=== PATIENT | female | born 1985 | race Caucasian/White ===

== ENCOUNTER 2019-01-08 21:37 | Inpatient (IN) | payer OTHER ==
[~2019-01-08] VITALS: Ht 162.6 cm; Wt 50.4 kg
--- NOTE | 2019-01-08 21:38 | NUR ---
ED Nurse Note: Pt arrived at 2109 BIBA from home with c/o OD on prescription pills in attempt to OD, pt has history of depression and test friend today with suicidal ideations and found un-responsive in home this evening, pt arrived in very critical condition, non-responsive and very lethargic, breathing shallow with o2 sat=94% with o2, pt also with increased heart rate of 130's, pt immediately gowned, has patent iv in right hand, labs drawn and MD immediately at bedside.
--- NOTE | 2019-01-08 21:47 | NUR ---
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 No reversal agents. Supportive care. Monitor for a minimum of 6-8 hours. Repeat EKG after treatment.
--- NOTE | 2019-01-08 21:50 | Emergency Room Report ---
History of Present Illness General Chief Complaint: Overdose Present Illness HPI 33-year-old female history of depression presents with overdose of Flexeril 10 mg unknown amount patient also overdosed on quetiapine 100 mg entire bottle is empty 3 months supply 90 pills, patient texted her friend saying she wanted to kill herself unknown ingestion time, patient unresponsive, patient brought in by EMS, history is limited, patient is critical. Patient presents for evaluation Allergies: Coded Allergies: UNABLE TO ASSESS (Unverified , 01/08/19) Patient History Limited by: medical condition - Patient obtunded Past Medical History: see triage record Last Menstrual Period: unk Reviewed Nursing Documentation: PMH: Agreed; PSxH: Agreed Review of Systems All Other Systems: limited - Patient is obtunded Physical Exam Vital Signs Date Time Temp Pulse Resp B/P (MAP) Pulse Ox O2 Delivery O2 Flow Rate FiO2 01/08/19 21:33 98.2 130 18 126/82 (97) 98 Nasal Cannula 4.0 Sp02 EP Interpretation: reviewed, abnormal - 93% General Appearance: moderate distress, lethargic Head: normocephalic, atraumatic Eyes: bilateral eye PERRL, bilateral eye EOMI ENT: uvula midline, dry mucus membranes Neck: supple, thyroid normal, supple/symm/no masses, other - No gag reflex Respiratory: lungs clear, no respiratory distress, no retraction, no accessory muscle use Cardiovascular #1: normal peripheral pulses, no edema, no gallop, no murmur, tachycardia Gastrointestinal: non tender, soft, no guarding, no rebound Musculoskeletal: normal inspection Neurologic: other - Response to pain however overall response is minimal Skin: no rash, warm/dry Procedures Critical Care Time Critical Care Time Given the critical condition in which the patient arrived, the patient was immediately assessed by myself and the nurse, and cardiac monitoring initiated due to the potential for rapid decompensation of the patient's clinical condition. During the course of the patient's stay, I spent a considerable amount of time at the bedside performing serial re-evaluations of the patient's hemodynamic and clinical status because of the recognized potential threat to life or limb in this condition. I then had a chance to review not only all of the available current laboratory and radiographic studies obtained today, but I also reviewed old records available to me at the time. Additionally, any ancillary information available including steward/stewardess second records were reviewed. Sequential vital signs were obtained. Critical Care time of 37 minutes was performed exclusive of billable procedures. Intubation Intubation : Consent: Emergent Time of Intubation: 22:11 Intubation Method: orotracheal Tube Size (cm): 7.5 Medications: Etomidate Breath Sounds after Intubation: equal Intubation Complications: no complications Post Intubation Xray: Yes Progress/Xray Impression: ETT well seated Attempts: One Patient Tolerated: Well Complications: None Medical Decision Making Diagnostic Impression: Primary Impression: Drug overdose Additional Impressions: Altered mental status, unspecified Respiratory failure Lactic acid acidosis Leukocytosis ER Course 33-year-old female presents with overdose of Seroquel, and Flexeril, patient with a QTC of 595 Patient in acute distress, obtunded, fluid resuscitation, antibiotics started, patient found to have a lactic acidosis, will order reflex. My nurse spoke with poison control, recommended monitoring, ICU admission, Derrick was individual at poison control time was at 9:45 PM Patient 10 PM, patient unresponsive, not protecting her airway, no gag, patient was emergently intubated Reevaluation 1153 she remains intubated Supportive care as per poison control, CT head is negative for acute pathology Patient admitted to Dr. Larsen [id number] Laboratory Tests Test 01/08/19 21:44 01/08/19 21:45 01/08/19 22:30 01/08/19 23:15 Arterial Blood pH 7.443 (7.350-7.450) Arterial Blood Partial Pressure CO2 32.6 mmHg (35.0-45.0) L Arterial Blood Partial Pressure O2 68.3 mmHg (75.0-100.0) L Arterial Blood HCO3 21.8 mmol/L (22.0-26.0) L Arterial Blood Oxygen Saturation 92.7 % (95-100) L Arterial Blood Base Excess -1.6 (-2-2) Chriss Test Positive Venous Blood pH Venous Blood Partial Pressure CO2 Venous Blood Partial Pressure O2 Venous Blood HCO3 Venous Blood Total Carbon Dioxide Venous Bld O2 Saturation (Measured) Venous Blood Oxygen Saturation Venous Blood Base Excess Methemoglobin 0.6 Sodium (Blood Gas) White Blood Count 26.1 K/UL (4.8-10.8) *H Red Blood Count 4.05 M/UL (4.20-5.40) L Hemoglobin 12.4 G/DL (12.0-16.0) Hematocrit 35.9 % (37.0-47.0) L Mean Corpuscular Volume 89 FL (80-99) Mean Corpuscular Hemoglobin 30.6 PG (27.0-31.0) Mean Corpuscular Hemoglobin Concent 34.5 G/DL (32.0-36.0) Red Cell Distribution Width 12.4 % (11.6-14.8) Platelet Count 275 K/UL (150-450) Mean Platelet Volume 6.3 FL (6.5-10.1) L Neutrophils (%) (Auto) % (45.0-75.0) Lymphocytes (%) (Auto) % (20.0-45.0) Monocytes (%) (Auto) % (1.0-10.0) Eosinophils (%) (Auto) % (0.0-3.0) Basophils (%) (Auto) % (0.0-2.0) Differential Total Cells Counted 100 Neutrophils % (Manual) 62 % (45-75) Lymphocytes % (Manual) 6 % (20-45) L Monocytes % (Manual) 5 % (1-10) Eosinophils % (Manual) 0 % (0-3) Basophils % (Manual) 0 % (0-2) Band Neutrophils 27 % (0-8) H Platelet Estimate Adequate Platelet Morphology Normal Red Blood Cell Morphology Normal Prothrombin Time 10.7 SEC (9.30-11.50) Prothrombin Time INR 1.0 (0.9-1.1) PTT 25 SEC (23-33) Sodium Level 143 MMOL/L (136-145) Potassium Level 3.3 MMOL/L (3.5-5.1) L Chloride Level 106 MMOL/L (98-107) Carbon Dioxide Level 23 MMOL/L (21-32) Anion Gap 14 mmol/L (5-15) Blood Urea Nitrogen 19 mg/dL (7-18) H Creatinine 1.5 MG/DL (0.55-1.30) H Estimate Glomerular Filtration Rate 40.0 mL/min (>60) Glucose Level 104 MG/DL (74-106) Lactic Acid Level 5.50 mmol/L (0.4-2.0) H Pending Calcium Level 8.2 MG/DL (8.5-10.1) L Phosphorus Level 3.9 MG/DL (2.5-4.9) Magnesium Level 1.2 MG/DL (1.8-2.4) L Total Bilirubin 0.6 MG/DL (0.2-1.0) Aspartate Amino Transferase (AST) 21 U/L (15-37) Alanine Aminotransferase (ALT) 16 U/L (12-78) Alkaline Phosphatase 61 U/L (46-116) Total Creatine Kinase 251 U/L (26-308) Creatine Kinase MB 2.4 NG/ML (0.0-3.6) Creatine Kinase MB Relative Index 0.9 Troponin I 0.007 ng/mL (0.000-0.056) Pro-B-Type Natriuretic Peptide 74 pg/mL (0-125) Total Protein 6.2 G/DL (6.4-8.2) L Albumin 2.9 G/DL (3.4-5.0) L Globulin 3.3 g/dL Albumin/Globulin Ratio 0.9 (1.0-2.7) L Triglycerides Level 37 MG/DL (30-150) Amylase Level 1149 U/L (25-115) *H Lipase 112 U/L (73-393) Human Chorionic Gonadotropin, Quant 1 mIU/mL (1-6) Salicylates Level 0.2 ug/mL (2.8-20) L Acetaminophen Level < 2 MCG/ML (10-30) L Serum Alcohol < 3 mg/dL Urine Color Pale yellow Urine Appearance Cloudy Urine pH 6 (4.5-8.0) Urine Specific [place] 1.015 (1.005-1.035) Urine Protein 2+ (NEGATIVE) H Urine Glucose (UA) Negative (NEGATIVE) Urine Ketones Negative (NEGATIVE) Urine Blood 1+ (NEGATIVE) H Urine Nitrite Negative (NEGATIVE) Urine Bilirubin Negative (NEGATIVE) Urine Urobilinogen Normal MG/DL (0.0-1.0) Urine Leukocyte Esterase 3+ (NEGATIVE) H Urine RBC 2-4 /HPF (0 - 2) H Urine WBC Tntc /HPF (0 - 2) H Urine Squamous Epithelial Cells None /LPF (NONE/OCC) Urine Bacteria Many /HPF (NONE) H Urine HCG, Qualitative Negative (NEGATIVE) Urine Opiates Screen Negative (NEGATIVE) Urine Barbiturates Screen Negative (NEGATIVE) Phencyclidine (PCP) Screen Negative (NEGATIVE) Urine Amphetamines Screen Negative (NEGATIVE) Urine Benzodiazepines Screen Positive (NEGATIVE) H Urine Cocaine Screen Negative (NEGATIVE) Urine Marijuana (THC) Screen Negative (NEGATIVE) EKG Diagnostic Results EKG Time: 21:46 EP Interpretation: Sinus tachycardia, rate 127, QTc 595, no acute ST elevations , normal axis Rate: tachycardiac Rhythm: NSR ST Segments: no acute changes Other Impression rpt EKG 2307: Rate 124, QTc 612, no acute ST elevations, normal axis, NSR Rhythm Strip Diag. Results Rhythm Strip Time: 21:51 EP Interpretation: yes Rate: 127 Rhythm: no PVC's, no ectopy, other - Tachycardia Chest X-Ray Diagnostic Results Chest X-Ray Diagnostic Results : Chest X-Ray Ordered: Yes # of Views/Limited/Complete: 1 View Indication: Other - AMS EP Interpretation: Yes Interpretation: no consolidation, no effusion, no pneumothorax, other - Tube 4.5 cm from gamal Impression: Other - ET tube 4.5 cm from gamal Other X-Ray Diagnostic Results Other X-Ray Diagnostic Results : Indication: Other CT/MRI/US Diagnostic Results CT/MRI/US Diagnostic Results : Impression Preliminary Findings Only See Final Report For Complete Findings CT HEAD Without Contrast: INDICATION: ams TECHNIQUE: Multiple, contiguous 2.5 mm axial cuts of the brain are obtained from the posterior fossa to the cranial vault. Coronal reformatted images provided. No IV contrast is administered. COMPARISON: none FINDINGS: No intracranial hemorrhage, abnormal intra- or extra-axial collections or parenchymal lesions are seen. The shape and configuration of the cortical sulci, basal cisterns and ventricles are within normal limits. The brady -white differentiation is preserved. No evidence of mass effect, midline shift, or edema. The osseous structures are unremarkable. The visualized portions of the paranasal sinuses are clear. Patient is intubated. IMPRESSION: Normal non-contrast CT scan of the head. Radiologist: Breana Buenrostro MD Last Vital Signs Date Time Temp Pulse Resp B/P (MAP) Pulse Ox O2 Delivery O2 Flow Rate FiO2 01/08/19 21:33 98.2 130 18 126/82 (97) 98 Nasal Cannula 4.0 Disposition: ADMITTED INPATIENT Condition: Serious Referrals: NOT CHOSEN IPA/,REFERRING (PCP) Jason Fox MD Jan 08, 2019 21:50
[2019-01-08 22:00] VITALS: BP 126/82
[2019-01-08] MEDS ORDERED: cefTRIAXone 1 GM in NS 55 ML IVPB ONE (22:00)
[2019-01-08] MEDS ORDERED: Clindamycin 600mg 50 ML IVPB ONE (22:00)
[2019-01-08] MEDS ORDERED: Sodium Bicarbonate 50ml Carp IV ONE (22:00)
[2019-01-08] MEDS ORDERED: Zemuron 50mg/5ml Inj IV ONE (22:00)
[2019-01-08] MEDS ORDERED: Etomidate 40mg/20ml Inj IV ONE (22:00)
--- NOTE | 2019-01-08 22:10 | NUR ---
ED Nurse Note: Pt intubated by md and placed on mechanical ventilation, v/s stable, all labs drawn and sent, will continue to closely monitor and prepare for icu admission.
[2019-01-08 22:29] LABS: HEMATOCRIT 35.9 % (37.0-47.0); HEMOGLOBIN 12.4 G/DL (12.0-16.0); MEAN CORPUSCULAR VOLUME 89 FL (80-99); PLATELET COUNT 275 K/UL (150-450); RED BLOOD COUNT 4.05 M/UL (4.20-5.40); RED CELL DISTRIBUTION WIDTH 12.4 % (11.6-14.8)
[2019-01-08 22:30] VITALS: BP 132/88
[2019-01-08 22:31] LABS: WHITE BLOOD COUNT 26.1 K/UL (4.8-10.8)
[2019-01-08 22:43] LABS: ANION GAP 14 mmol/L (5-15); BLOOD UREA NITROGEN 19 mg/dL (7-18); CALCIUM 8.2 MG/DL (8.5-10.1); CARBON DIOXIDE 23 MMOL/L (21-32); CHLORIDE 106 MMOL/L (98-107); CREATININE 1.5 MG/DL (0.55-1.30); POTASSIUM 3.3 MMOL/L (3.5-5.1); SODIUM 143 MMOL/L (136-145)
[2019-01-08 22:55] LABS: ALANINE AMINOTRANSFERASE 16 U/L (12-78); ALBUMIN 2.9 G/DL (3.4-5.0); ALBUMIN/GLOBULIN RATIO 0.9 (1.0-2.7); ALKALINE PHOSPHATASE 61 U/L (46-116); ASPARTATE AMINO TRANSFERASE 21 U/L (15-37); BILIRUBIN,TOTAL 0.6 MG/DL (0.2-1.0); CKMB 2.4 NG/ML (0.0-3.6); CREATINE KINASE 251 U/L (26-308); PHOSPHORUS 3.9 MG/DL (2.5-4.9); TRIGLYCERIDES 37 MG/DL (30-150)
[2019-01-08 22:57] LABS: AMYLASE 1149 U/L (25-115)
[2019-01-08 23:00] VITALS: BP 144/98
--- NOTE | 2019-01-08 23:00 | NUR ---
ED Nurse Note: No changes in condition or worsening, pt reamins intubated, ogt inserted with no complications, iv fluuids and meds given as ordered, pt brother Christoph Cedillo is at bedside, contact info., pt being prepared to go to ct-scan for imaging, will continue to closely monitor, md has propofol ordered, pt ermains non-responsive, no need for sedation at this time, md is aware, med not started.
--- NOTE | 2019-01-08 23:00 | NUR ---
ED Nurse Note: PT BEING TAKEN TO FLOOR UNIT FOR ADMISSION, REPORT CALLED TO ICU NURSE GIOVANI, PT REMAINS IN SAME CONDITION AND NON-RESPONSIVE, PT IS INTUBATED ON VENTILATOR SUPPORT, IV LINES X 2 INTACT AND PATENT, RESPIRATORY THERAPIST, RN AND ER-TECH ALL TOOK PT TO FLOOR UNIT VIA GURNEY AND ACLS PROTOCOLS, NAD NOTED DURING TRANSFER TO UNIT.
--- NOTE | 2019-01-08 23:18 | Diagnostic Imaging Report ---
Indication: NG tube Comparison: None Single view of the abdomen obtained Findings: NG tube is well situated in the stomach lumen. Bowel gas pattern is nonspecific. IMPRESSION: NG tube satisfactory in position
--- NOTE | 2019-01-08 23:19 | Diagnostic Imaging Report ---
Indication: Intubation Comparison: None A single view chest radiograph was obtained. Findings: Endotracheal tube is in good position. There is hazy opacification of the right hemithorax. Heart size is normal. Bones are unremarkable. IMPRESSION: Endotracheal tube in good position. Generalized increased opacification of the right hemithorax may be positional in nature
[2019-01-08 23:30] VITALS: BP 142/90
[2019-01-08 23:32] LABS: BILIRUBIN, URINE NEGATIVE (NEGATIVE); COLOR,URINE PALE YELLOW; GLUCOSE, URINE (UA) NEGATIVE (NEGATIVE); KETONES,URINE NEGATIVE (NEGATIVE); LEUKOCYTE ESTERASE ,URINE 3+ (NEGATIVE); NITRITE,URINE NEGATIVE (NEGATIVE); PH,URINE 6 (4.5-8.0); PROTEIN,URINE 2+ (NEGATIVE); UROBILINOGEN,URINE NORMAL MG/DL (0.0-1.0)
[2019-01-08 23:48] LABS: APPEARANCE,URINE CLOUDY
[2019-01-09] VITALS (23 sets, daily range): BP systolic 95–127; BP diastolic 56–78
--- NOTE | 2019-01-09 00:02 | Diagnostic Imaging Report ---
Indication: Altered mental status Technique: Contiguous 5 mm thick transaxial imaging of the head obtained in a Siemens Sensation [address] scanner. Soft tissue and bone windows generated. Automatic Exposure Control was utilized. Total Dose length Product (DLP): 1344.[address] Dose Index Volume (CTDIvol): 70.38 mGy Comparison: none Findings: The size and configuration of the cortical sulci, basal cisterns, and ventricles are within normal limits for age. There is no mass effect, midline shift, or edema identified. There is no evidence of acute hemorrhage or abnormal intra-axial or extra-axial fluid collections. The bones and soft tissues are unremarkable. Impression: No mass effect, edema or acute bleed. Stat rad communicated the preliminary results to the Emergency Department. There are no significant discrepancies. The CT scanner at [facility] is accredited by the [employer] [employer] and the scans are performed using dose optimization techniques as appropriate to a performed exam including Automatic Exposure control.
--- NOTE | 2019-01-09 00:45 | NUR ---
NURSE NOTES: Received Pt from ER with Dx drug overdose , pt is obtunded orally intubated on AC mode, pupils 5mm sluggish with + for gag reflex.Junctional rhythm on the monitor, Bp stable afebrile. IVF infusing well per left AC. Site atraumatic, NPO at this time, pt with OGT clamped. Alvarez to gravity with moderate amt of carlin yellow urine. Monitor I and O. Monitor lytes. Pt also has non blancheable redness sacral area, picture taken was done.TX was initiated. Monitor Neuro status. Will continue to monitor.
[2019-01-09] MEDS ORDERED: QUETIAPINE FUM100 MG ORAL (00:48)
[2019-01-09] MEDS ORDERED: CYCLOBENZAPRINE10 MG ORAL (00:48)
[2019-01-09] MEDS ORDERED: SERTRALINE HCL50 MG ORAL (00:48)
--- NOTE | 2019-01-09 01:00 | NUR ---
NURSE NOTES:pt noted slightly agitated- Soft wrist restrain maintained for safety.
--- NOTE | 2019-01-09 01:19 | NUR ---
NURSE NOTES: Called Dr. Larsen and left message asking for admission orders. Awaiting for call back.
--- NOTE | 2019-01-09 01:27 | NUR ---
NURSE NOTES: Dr. Larsen called back with admission orders.
[2019-01-09] MEDS ORDERED: LORazepam Inj 2mg/ml 1ml IV PRN ×2 (01:30→11:30)
[2019-01-09] MEDS ORDERED: Vancomycin 1.25gm Premix IVPB ONE ×2 (02:30→04:00)
[2019-01-09] MEDS ORDERED: Vancomycin 1.25gm vial IVPB ONE (03:27)
[2019-01-09] MEDS ORDERED: Zosyn 3.375gm inj ONE (03:29)
--- NOTE | 2019-01-09 04:00 | NUR ---
NURSE NOTES: pt obtunted o2 sat 100 o/o no acute resp distress reposition and suction
[2019-01-09 04:39] LABS: MEAN CORPUSCULAR VOLUME 93 FL (80-99); PLATELET COUNT 231 K/UL (150-450); RED BLOOD COUNT 3.54 M/UL (4.20-5.40); RED CELL DISTRIBUTION WIDTH 13.2 % (11.6-14.8); WHITE BLOOD COUNT 19.8 K/UL (4.8-10.8)
[2019-01-09 04:54] LABS: ALANINE AMINOTRANSFERASE 11 U/L (12-78); ALBUMIN 2.3 G/DL (3.4-5.0); ALBUMIN/GLOBULIN RATIO 0.7 (1.0-2.7); ALKALINE PHOSPHATASE 49 U/L (46-116); ANION GAP 9 mmol/L (5-15); ASPARTATE AMINO TRANSFERASE 22 U/L (15-37); BILIRUBIN,TOTAL 0.6 MG/DL (0.2-1.0); BLOOD UREA NITROGEN 16 mg/dL (7-18); CALCIUM 7.2 MG/DL (8.5-10.1); CARBON DIOXIDE 24 MMOL/L (21-32); CHLORIDE 111 MMOL/L (98-107); CREATININE 1.1 MG/DL (0.55-1.30); POTASSIUM 3.3 MMOL/L (3.5-5.1); SODIUM 144 MMOL/L (136-145)
[2019-01-09] MEDS: Piperacillin/Tazobactam 3.375 GM in NS 110 ML IVPB SCH ×4 (05:51→23:49)
--- NOTE | 2019-01-09 06:00 | NUR ---
NURSE NOTES: pt reposition and suction condition unchange
--- NOTE | 2019-01-09 06:40 | NUR ---
RESPIRATORY NOTE: Received pt on AC 20-420ml- 50%FiO2- peep 5. Pt was orally intubated with ETT 7.5 @ 22cm lips line, secure by anchor fast. Percy clear breath sounds heard upon auscultation, no secretions when suctioned. Pt is sleeping, unable to follow commands but responds to pain and suctioning. Alarms are set and audible, vent is plugged into the red outlet, ambu bag is at bedside. Vent circuits and scn tubing are patent, secured and out of the way. Will continue to monitor.
--- NOTE | 2019-01-09 07:23 | NUR ---
RADIOLOGY DEPT., CHEST X-RAY PERFORMED 22:10HRS ON 01/09 BY JOANNA BROWN
--- NOTE | 2019-01-09 07:28 | History & Physical ---
History and Physical History & Physicial History and Physical HPI Patient is a 33-year-old female with history of depression whom presents after taking an overdose of Flexeril 10 mg - unknown amount, patient also overdosed on quetiapine 100 mg entire bottle is empty 3 months supply 90 pills, patient texted her friend saying she wanted to kill herself unknown ingestion time, patient unresponsive on arrival in the ED, intubated for airway protection. Allergies: UNK Past Medical History: Psychiatric disorder All Other Systems: NA Physical Exam Vital Signs noted General Appearance: seadted on the ventilator Head: normocephalic, atraumatic Eyes: bilateral eye PERRL, bilateral eye EOMI ENT: NCAT, moist mm Neck: supple, thyroid normal, supple/symm/no masses, ETT, NGT Respiratory: lungs clear to auscultation bilaterally Cardiovascular: normal heart sounds, normal peripheral pulses, no edema Gastrointestinal: non tender, soft, no guarding, no rebound Musculoskeletal: normal inspection Neurologic: sedated, no focal signs, no seizures Skin: no rash, no edema Procedures Critical Care Time Critical Care Time Given the critical condition in which the patient arrived, the patient was immediately assessed by myself and the nurse, and cardiac monitoring initiated due to the potential for rapid decompensation of the patient's clinical condition. During the course of the patient's stay, I spent a considerable amount of time at the bedside performing serial re-evaluations of the patient's hemodynamic and clinical status because of the recognized potential threat to life or limb in this condition. I then had a chance to review not only all of the available current laboratory and radiographic studies obtained today, b Impression: Drug overdose of Flexeril, Seroquel Respiratory failure Lactic acid acidosis Leukocytosis Psychiatric Disorder Plan AC Mechanical Ventilation NGT Supportive measures IVF IV AB PPX Monitor labs Sedation PRN Laboratory Tests Test 01/08/19 21:44 01/08/19 21:45 01/08/19 22:30 01/08/19 23:15 Arterial Blood pH 7.443 (7.350-7.450) Arterial Blood Partial Pressure CO2 32.6 mmHg (35.0-45.0) L Arterial Blood Partial Pressure O2 68.3 mmHg (75.0-100.0) L Arterial Blood HCO3 21.8 mmol/L (22.0-26.0) L Arterial Blood Oxygen Saturation 92.7 % (95-100) L Arterial Blood Base Excess -1.6 (-2-2) Chriss Test Positive Venous Blood pH Venous Blood Partial Pressure CO2 Venous Blood Partial Pressure O2 Venous Blood HCO3 Venous Blood Total Carbon Dioxide Venous Bld O2 Saturation (Measured) Venous Blood Oxygen Saturation Venous Blood Base Excess Methemoglobin 0.6 Sodium (Blood Gas) White Blood Count 26.1 K/UL (4.8-10.8) *H Red Blood Count 4.05 M/UL (4.20-5.40) L Hemoglobin 12.4 G/DL (12.0-16.0) Hematocrit 35.9 % (37.0-47.0) L Mean Corpuscular Volume 89 FL (80-99) Mean Corpuscular Hemoglobin 30.6 PG (27.0-31.0) Mean Corpuscular Hemoglobin Concent 34.5 G/DL (32.0-36.0) Red Cell Distribution Width 12.4 % (11.6-14.8) Platelet Count 275 K/UL (150-450) Mean Platelet Volume 6.3 FL (6.5-10.1) L Neutrophils (%) (Auto) % (45.0-75.0) Lymphocytes (%) (Auto) % (20.0-45.0) Monocytes (%) (Auto) % (1.0-10.0) Eosinophils (%) (Auto) % (0.0-3.0) Basophils (%) (Auto) % (0.0-2.0) Differential Total Cells Counted 100 Neutrophils % (Manual) 62 % (45-75) Lymphocytes % (Manual) 6 % (20-45) L Monocytes % (Manual) 5 % (1-10) Eosinophils % (Manual) 0 % (0-3) Basophils % (Manual) 0 % (0-2) Band Neutrophils 27 % (0-8) H Platelet Estimate Adequate Platelet Morphology Normal Red Blood Cell Morphology Normal Prothrombin Time 10.7 SEC (9.30-11.50) Prothrombin Time INR 1.0 (0.9-1.1) PTT 25 SEC (23-33) Sodium Level 143 MMOL/L (136-145) Potassium Level 3.3 MMOL/L (3.5-5.1) L Chloride Level 106 MMOL/L (98-107) Carbon Dioxide Level 23 MMOL/L (21-32) Anion Gap 14 mmol/L (5-15) Blood Urea Nitrogen 19 mg/dL (7-18) H Creatinine 1.5 MG/DL (0.55-1.30) H Estimate Glomerular Filtration Rate 40.0 mL/min (>60) Glucose Level 104 MG/DL (74-106) Lactic Acid Level 5.50 mmol/L (0.4-2.0) H Pending Calcium Level 8.2 MG/DL (8.5-10.1) L Phosphorus Level 3.9 MG/DL (2.5-4.9) Magnesium Level 1.2 MG/DL (1.8-2.4) L Total Bilirubin 0.6 MG/DL (0.2-1.0) Aspartate Amino Transferase (AST) 21 U/L (15-37) Alanine Aminotransferase (ALT) 16 U/L (12-78) Alkaline Phosphatase 61 U/L (46-116) Total Creatine Kinase 251 U/L (26-308) Creatine Kinase MB 2.4 NG/ML (0.0-3.6) Creatine Kinase MB Relative Index 0.9 Troponin I 0.007 ng/mL (0.000-0.056) Pro-B-Type Natriuretic Peptide 74 pg/mL (0-125) Total Protein 6.2 G/DL (6.4-8.2) L Albumin 2.9 G/DL (3.4-5.0) L Globulin 3.3 g/dL Albumin/Globulin Ratio 0.9 (1.0-2.7) L Triglycerides Level 37 MG/DL (30-150) Amylase Level 1149 U/L (25-115) *H Lipase 112 U/L (73-393) Human Chorionic Gonadotropin, Quant 1 mIU/mL (1-6) Salicylates Level 0.2 ug/mL (2.8-20) L Acetaminophen Level < 2 MCG/ML (10-30) L Serum Alcohol < 3 mg/dL Urine Color Pale yellow Urine Appearance Cloudy Urine pH 6 (4.5-8.0) Urine Specific [place] 1.015 (1.005-1.035) Urine Protein 2+ (NEGATIVE) H Urine Glucose (UA) Negative (NEGATIVE) Urine Ketones Negative (NEGATIVE) Urine Blood 1+ (NEGATIVE) H Urine Nitrite Negative (NEGATIVE) Urine Bilirubin Negative (NEGATIVE) Urine Urobilinogen Normal MG/DL (0.0-1.0) Urine Leukocyte Esterase 3+ (NEGATIVE) H Urine RBC 2-4 /HPF (0 - 2) H Urine WBC Tntc /HPF (0 - 2) H Urine Squamous Epithelial Cells None /LPF (NONE/OCC) Urine Bacteria Many /HPF (NONE) H Urine HCG, Qualitative Negative (NEGATIVE) Urine Opiates Screen Negative (NEGATIVE) Urine Barbiturates Screen Negative (NEGATIVE) Phencyclidine (PCP) Screen Negative (NEGATIVE) Urine Amphetamines Screen Negative (NEGATIVE) Urine Benzodiazepines Screen Positive (NEGATIVE) H Urine Cocaine Screen Negative (NEGATIVE) Urine Marijuana (THC) Screen Negative (NEGATIVE) EKG: Sinus tachycardia, rate 127, QTc 595, no acute ST elevations, normal axis Rate: tachycardiac Rhythm: NSR ST Segments: no acute changes EKG 2307: Rate 124, QTc 612, no acute ST elevations, normal axis, NSR Chest X-Ray: no consolidation, no effusion, no pneumothorax, other - Tube 4.[address] HEAD: FINDINGS: No intracranial hemorrhage, abnormal intra- or extra-axial collections or parenchymal lesions are seen. The shape and configuration of the cortical sulci, basal cisterns and ventricles are within normal limits. The brady -white differentiation is preserved. No evidence of mass effect, midline shift, or edema. The osseous structures are unremarkable. The visualized portions of the paranasal sinuses are clear. Patient is intubated. IMPRESSION: Normal non-contrast CT scan of the head. Jean Pierre Allison MD Jan 09, 2019 07:28
--- NOTE | 2019-01-09 07:34 | NUR ---
HAND-OFF: Report given to liliana francisco using sbalisha rn
--- NOTE | 2019-01-09 07:35 | NUR ---
NURSE NOTES: Report received from TONY Dockery. Pt is sleeping in bed. Respond to deep pain and suctioning. Bilateral eyes sluggish +4. Sinus tachy in 120's on pvc monitor. Pt is on bilateral restraints since pt can be impulsive and pull out ETT. ETT 7.5/23cm at lip line. AC 20, TV 420, FiO2 50%, P 5. O2 sat 99%. No respiratory distress noted. OGT in place. Kept NPO as per order. Alvarez in place draining to gravity. Right hand G18 and left AC G20 patent and asymptotic. NS is running at 100cc/hr. Bed in lowest position. Side rails up x3. Will resume plan of care.
--- NOTE | 2019-01-09 07:52 | NUR ---
NURSE NOTES: Home medication given to brother.
--- NOTE | 2019-01-09 08:16 | NUR ---
NURSE NOTES: Spoke with [facility]. Received recommendation to do EKG. Received to do EKG from Dr Larsen. EKG done and shows Sinus tachy. Also notified Dr Larsen regarding ABG result and abnormal labs. Awaiting call back for new orders.
--- NOTE | 2019-01-09 08:33 | NUR ---
CASE MANAGEMENT:REVIEW 33 YR OLD FEMALE BIBA FROM HOME CC: OVERDOSE. FOUND UNRESPONSIVE W/EMPTY PILL BOTTLES (MUSCLE RELAXER, ANTIPSYCHOTIC AND ANTI-DEPRESSANT) SI: DRUG OVERDOSE. RESPIRATORY FAILURE 98.2 130 18 126/82 98% ON 4L/NC WBC+26.1 AMYLASE+1149 IS: INTUBATED 1L NS BOLUS X2 IV NAHCO3 IV ROCEPHIN IV CLINDAMYCIN IV MIDAZOLAM IV ETOMIDATE IV ROCURONIUM IV PROPOFOL CXR CT HEAD BLOOD CX : TO ICU INTERQUAL CRITERIA MET
[2019-01-09] MEDS: Heparin 5000 units/ml inj SUBQ SCH ×2 (09:25→20:58)
--- NOTE | 2019-01-09 09:49 | NUR ---
NURSE NOTES: Pt's mother took one of the bracelets to home. Pt has now two bracelets on left wrist. Turned and repositioned pt. Mother and brother in the waiting lounge.
--- NOTE | 2019-01-09 11:01 | NUR ---
NURSE NOTES: Dr Allison here to see the patient. Family and social worker palliative care, Kat at bedside. Updated Dr Allison regarding pt's current condition. Orders received, noted, and carried out.
--- NOTE | 2019-01-09 11:12 | NUR ---
Social Work This SW met with patient who is currently in the ICU, intubated and sedated. Patients mother, Mirian, visiting from [place] ([phone]) and brother, Christoph, lives in [place] ([phone]) at bedside to provide support to patient. 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 Patient has a history of chronic depression, taking antidepressants (and possibly anti-psychotics). Patient also has a history of substance abuse (alcohol and marijuana) and was recently in a dual-diagnosis program at [facility] for six weeks, outpatient treatment. Family was unable to provide the Psychiatrist or mental health clinic she attends. Pending progress; SW to follow for support and resources, as needed. Emotional support provided to family at bedside.
[2019-01-09] MEDS ORDERED: Activated Charcoal 50gm/240ml Btl ORAL SCH (12:00)
--- NOTE | 2019-01-09 12:55 | NUR ---
NURSE NOTES: Activated Charcoal given via OGT as ordered. Mother at bedside. Pt would wake up when coughing or suctioning for a short time, but would go back to sleep right away. Will continue to monitor. Turned and repositioned pt.
--- NOTE | 2019-01-09 14:13 | NUR ---
NURSE NOTES: Wound care nurse assessed the patient and changed dressing. Order entered as per wound protocol. Special mattress ordered. Dr Sotomayor will be a wound consult as per Dr Larsen. Initial wound assessment done. Addendum: 01/09/19 at 1639 by ZULEIMA DONOHUE RN RN NURSE NOTES: Wound care nurse assessed the patient and changed dressing. Order entered as per wound care nurse's recommendation. Special mattress ordered. Dr Sotomayor will be a wound consult as per Dr Larsen. Initial wound assessment done.
--- NOTE | 2019-01-09 14:51 | NUR ---
NURSE NOTES:WOUND CARE NOTES:Pt presented on admission with multiple pressure injuries.Non-blanching erythema without induration/fluctuance medial R elbow. DTPI L elbow.Base of wound maroon and indurated.(L)0.9cm x (W)0.8cm. An area of non-blanchable erythema without induration/fluctuance medial L elbow. DTPI sacrococcygeal area. base of wound indurated -purple with surrounding red tinged borders. (L)1cm x (W)1cm. DTPI L buttocks. base of wound maroon,indurated with irregular shaped borders that are red . Periwound is pink and blanchable. (L)4.2cm x (W)3.5cm. Non-blanchable erythema that is indurated at base of wound L buttocks (L)4.5cm x (W)5cm.Periwound pink and blanchable. Non-blanchable erythema without induration or fluctuance L heel. Non-blanchable erythema without induration or fluctuance L lateral Malleolus. Non-blanchable erythema without induration /fluctuance R heel. Tx.Plan: Apply Moisture Barrier paste to sacrococcygeal area, R and L buttocks. Apply Cavilon periwound. Cover with Optifoam drsgs. Change every 3 days and prn. Apply Cavilon Skin Barrier to R and L elbows. Cover each site with Optifoam drsg. Change every 7 days and prn. Apply Cavilon Skin Barrier to R and L heels. Cover each heel with Optifoam drsg. Change every 7 days and prn. APM/MEL Mattress overlay. Reposition at lease every 2 hours or as tolerated. Off-load heels with pillow.
[2019-01-09] MEDS ORDERED: NS 275ml ONE (15:19)
[2019-01-09] MEDS ORDERED: Tubing IV Secondary IV ONE (15:19)
[2019-01-09] MEDS ORDERED: D5W 275ml ONE (15:19)
--- NOTE | 2019-01-09 15:48 | NUR ---
RD ASSESSMENT & RECOMMENDATIONS SEE CARE ACTIVITY FOR COMPLETE ASSESSMENT DAILY ESTIMATED NEEDS: Needs based on Critical care, wounds/ 50kg 22-28 kcals/kg [id number] total kcals 1.25-2 g protein/kg 62-100 g total protein 25-30 mL/kg 8425-1537 total fluid mLs NUTRITION DIAGNOSIS: * Increased kcal/prot needs R/T wound healing as evidenced by pt admitted with multiple non-blanchable redness and DTPI wounds, refer to WC eval. * Swallowing difficulty R/T respiratory status as evidenced by s/p OD, orally intubated in ICU, w/ OGT in place, NPO. CURRENT TF:NPO ENTERAL NUTRITION RECOMMENDATIONS: Vital AF 1.2 @ 48ml/hr x 24 hrs to provide 1152ml, 1382kcal, 86g prot, 934ml free water * As medically appropriate, initiate Vital AF 1.2 @ 18ml/hr x 6 hrs * Advance 10ml q 4-6 hrs as tolerated to goal rate. * HOB over 30 degrees/ water flush per MD ADDITIONAL RECOMMENDATIONS: * Monitor lytes, replete as needed (low mag and K) * Calibrated bedscale wt for accurate CBW * Wound healing: add MVI 1 tab QD, Vit C 500mg QD : add Jose 1pkt BID
--- NOTE | 2019-01-09 16:26 | NUR ---
*-* INSURANCE *-* ALL CLINICALS AND REVIEWS HAVE BEEN FAXED TO: [facility] AUTH#[id number] FAX ALL CLINICALS TO: [phone]
--- NOTE | 2019-01-09 16:29 | NUR ---
NURSE NOTES: Afebrile. Turned and repositioned pt. Heart rate 122. BP 107/65. O2 sat 98-99% on FiO2 30%. No acute distress noted. Pt wakes up to pain or coughs at times and tries to reach ETT. Bilateral soft restraints continued.
--- NOTE | 2019-01-09 17:21 | Consultation ---
History of Present Illness General Date patient seen: Jan 09, 2019 Chief Complaint: Overdose Present Illness HPI This is a very unfortunate 33-year-old female who presented to [facility] emergency department brought in by ambulance after being found down for unknown time. Per report patient had suicidal ideations and wanted to commit suicide and overdosed on her medications. She was found down an unknown how long. She was intubated and taken to the intensive care unit for remainder of care and management. In intensive care unit she was identified to have multiple deep tissue injuries likely from being down for significant period of time. Surgery called to evaluate and assist with care. Patient seen, patient evaluate, chart reviewed. Patient unable to provide history given current medical condition. Allergies: Coded Allergies: UNABLE TO ASSESS (Unverified , 01/08/19) Medication History Scheduled Cyclobenzaprine Hcl* (Flexeril*), 10 MG ORAL THREE TIMES A DAY, (Reported) Quetiapine Fumarate* (Seroquel*), 100 MG ORAL DAILY, (Reported) Sertraline Hcl* (Zoloft*), 50 MG ORAL DAILY, (Reported) Patient History Limited by: medical condition History Provided By: Medical Record, PMD Healthcare decision maker Resuscitation status Full Code Advanced Directive on File No Past Medical/Surgical History Past Medical/Surgical History: (1) Deep tissue injury (2) Leukocytosis (3) Respiratory failure (4) Drug overdose (5) Lactic acid acidosis (6) Altered mental status, unspecified Review of Systems ROS Narrative Unable to provide given history and medical condition Physical Exam General Appearance: no apparent distress Lines, tubes and drains: peripheral HEENT: mucous membranes moist Neck: normal alignment Respiratory/Chest: lungs clear, on vent Cardiovascular/Chest: normal rate Abdomen: soft, no organomegaly, no mass Extremities: no edema, no cyanosis Skin Exam: warm/dry Neurologic: unresponsiveness Last 24 Hour Vital Signs Date Time Temp Pulse Resp B/P (MAP) Pulse Ox O2 Delivery O2 Flow Rate FiO2 01/09/19 17:00 121 26 106/65 (79) 99 01/09/19 16:34 121 23 30 01/09/19 16:26 122 01/09/19 16:00 30 01/09/19 16:00 98.8 122 25 107/65 (79) 98 01/09/19 16:00 Mechanical Ventilator 01/09/19 15:00 122 26 30 01/09/19 15:00 122 26 112/66 (81) 98 01/09/19 14:00 119 26 105/69 (81) 99 01/09/19 13:00 119 24 103/56 (72) 99 01/09/19 12:38 116 25 30 01/09/19 12:00 98.5 118 25 106/67 (80) 97 01/09/19 12:00 30 01/09/19 12:00 Mechanical Ventilator 01/09/19 11:56 119 01/09/19 11:00 121 26 107/67 (80) 97 01/09/19 10:57 120 24 30 01/09/19 10:00 123 24 111/70 (84) 100 01/09/19 09:41 123 01/09/19 09:40 98.6 01/09/19 09:00 125 25 113/61 (78) 99 01/09/19 08:30 126 25 40 01/09/19 08:00 50 01/09/19 08:00 Mechanical Ventilator 01/09/19 08:00 99.7 127 25 113/71 (85) 99 01/09/19 07:00 127 26 117/72 (87) 99 01/09/19 06:40 126 25 50 01/09/19 06:00 124 26 121/78 (92) 100 01/09/19 05:00 98.6 124 26 122/78 (93) 100 01/09/19 04:50 124 28 50 01/09/19 04:00 Mechanical Ventilator 01/09/19 04:00 127 01/09/19 04:00 127 25 127/76 (93) 100 01/09/19 04:00 55 01/09/19 03:06 133 30 50 01/09/19 03:00 133 27 119/73 (88) 100 01/09/19 02:00 133 19 123/76 (92) 100 01/09/19 01:15 60 01/09/19 01:05 129 01/09/19 01:00 98.7 129 19 125/75 (92) 100 01/09/19 01:00 Mechanical Ventilator 01/09/19 01:00 Mechanical Ventilator 01/09/19 01:00 Mechanical Ventilator 01/09/19 00:47 129 29 60 01/08/19 23:45 98.2 130 20 142/90 100 Mechanical Ventilator 4.0 80 01/08/19 23:30 98.2 130 20 142/90 100 Mechanical Ventilator 4.0 80 01/08/19 23:11 123 20 80 01/08/19 23:00 98.2 128 20 144/98 100 Mechanical Ventilator 4.0 100 01/08/19 22:30 98.2 12 20 132/88 100 Mechanical Ventilator 4.0 100 01/08/19 22:22 124 20 100 Mechanical Ventilator 100 01/08/19 22:18 124 20 100 01/08/19 22:00 31 123/76 Mechanical Ventilator 60 01/08/19 22:00 98.2 135 14 126/82 94 Nasal Cannula 4.0 01/08/19 21:45 130 18 Nasal Cannula 4.0 01/08/19 21:33 98.2 130 18 126/82 (97) 98 Nasal Cannula 4.0 Intake and Output 01/08/19 01/09/19 19:00 07:00 Intake Total 710.5 ml Output Total 840 ml Balance -129.5 ml Intake IV Total 710.5 ml Output Urine Total 840 ml Laboratory Tests Test 01/08/19 21:44 01/08/19 21:45 01/08/19 22:30 01/08/19 23:15 Arterial Blood pH 7.443 (7.350-7.450) Arterial Blood Partial Pressure CO2 32.6 mmHg (35.0-45.0) L Arterial Blood Partial Pressure O2 68.3 mmHg (75.0-100.0) L Arterial Blood HCO3 21.8 mmol/L (22.0-26.0) L Arterial Blood Oxygen Saturation 92.7 % (95-100) L Arterial Blood Base Excess -1.6 (-2-2) Chriss Test Positive Venous Blood pH Venous Blood Partial Pressure CO2 Venous Blood Partial Pressure O2 Venous Blood HCO3 Venous Blood Total Carbon Dioxide Venous Bld O2 Saturation (Measured) Venous Blood Oxygen Saturation Venous Blood Base Excess Methemoglobin 0.6 Sodium (Blood Gas) White Blood Count 26.1 K/UL (4.8-10.8) *H Red Blood Count 4.05 M/UL (4.20-5.40) L Hemoglobin 12.4 G/DL (12.0-16.0) Hematocrit 35.9 % (37.0-47.0) L Mean Corpuscular Volume 89 FL (80-99) Mean Corpuscular Hemoglobin 30.6 PG (27.0-31.0) Mean Corpuscular Hemoglobin Concent 34.5 G/DL (32.0-36.0) Red Cell Distribution Width 12.4 % (11.6-14.8) Platelet Count 275 K/UL (150-450) Mean Platelet Volume 6.3 FL (6.5-10.1) L Neutrophils (%) (Auto) % (45.0-75.0) Lymphocytes (%) (Auto) % (20.0-45.0) Monocytes (%) (Auto) % (1.0-10.0) Eosinophils (%) (Auto) % (0.0-3.0) Basophils (%) (Auto) % (0.0-2.0) Differential Total Cells Counted 100 Neutrophils % (Manual) 62 % (45-75) Lymphocytes % (Manual) 6 % (20-45) L Monocytes % (Manual) 5 % (1-10) Eosinophils % (Manual) 0 % (0-3) Basophils % (Manual) 0 % (0-2) Band Neutrophils 27 % (0-8) H Platelet Estimate Adequate Platelet Morphology Normal Red Blood Cell Morphology Normal Prothrombin Time 10.7 SEC (9.30-11.50) Prothromb Time International Ratio 1.0 (0.9-1.1) Activated Partial Thromboplast Time 25 SEC (23-33) Sodium Level 143 MMOL/L (136-145) Potassium Level 3.3 MMOL/L (3.5-5.1) L Chloride Level 106 MMOL/L (98-107) Carbon Dioxide Level 23 MMOL/L (21-32) Anion Gap 14 mmol/L (5-15) Blood Urea Nitrogen 19 mg/dL (7-18) H Creatinine 1.5 MG/DL (0.55-1.30) H Estimat Glomerular Filtration Rate 40.0 mL/min (>60) Glucose Level 104 MG/DL (74-106) Lactic Acid Level 5.50 mmol/L (0.4-2.0) H 3.60 mmol/L (0.66-2.22) H Calcium Level 8.2 MG/DL (8.5-10.1) L Phosphorus Level 3.9 MG/DL (2.5-4.9) Magnesium Level 1.2 MG/DL (1.8-2.4) L Total Bilirubin 0.6 MG/DL (0.2-1.0) Aspartate Amino Transf (AST/SGOT) 21 U/L (15-37) Alanine Aminotransferase (ALT/SGPT) 16 U/L (12-78) Alkaline Phosphatase 61 U/L (46-116) Total Creatine Kinase 251 U/L (26-308) Creatine Kinase MB 2.4 NG/ML (0.0-3.6) Creatine Kinase MB Relative Index 0.9 Troponin I 0.007 ng/mL (0.000-0.056) Pro-B-Type Natriuretic Peptide 74 pg/mL (0-125) Total Protein 6.2 G/DL (6.4-8.2) L Albumin 2.9 G/DL (3.4-5.0) L Globulin 3.3 g/dL Albumin/Globulin Ratio 0.9 (1.0-2.7) L Triglycerides Level 37 MG/DL (30-150) Amylase Level 1149 U/L (25-115) *H Lipase 112 U/L (73-393) Human Chorionic Gonadotropin, Quant 1 mIU/mL (1-6) Salicylates Level 0.2 ug/mL (2.8-20) L Acetaminophen Level < 2 MCG/ML (10-30) L Serum Alcohol < 3 mg/dL Urine Color Pale yellow Urine Appearance Cloudy Urine pH 6 (4.5-8.0) Urine Specific [place] 1.015 (1.005-1.035) Urine Protein 2+ (NEGATIVE) H Urine Glucose (UA) Negative (NEGATIVE) Urine Ketones Negative (NEGATIVE) Urine Blood 1+ (NEGATIVE) H Urine Nitrite Negative (NEGATIVE) Urine Bilirubin Negative (NEGATIVE) Urine Urobilinogen Normal MG/DL (0.0-1.0) Urine Leukocyte Esterase 3+ (NEGATIVE) H Urine RBC 2-4 /HPF (0 - 2) H Urine WBC Tntc /HPF (0 - 2) H Urine Squamous Epithelial Cells None /LPF (NONE/OCC) Urine Bacteria Many /HPF (NONE) H Urine HCG, Qualitative Negative (NEGATIVE) Urine Opiates Screen Negative (NEGATIVE) Urine Barbiturates Screen Negative (NEGATIVE) Phencyclidine (PCP) Screen Negative (NEGATIVE) Urine Amphetamines Screen Negative (NEGATIVE) Urine Benzodiazepines Screen Positive (NEGATIVE) H Urine Cocaine Screen Negative (NEGATIVE) Urine Marijuana (THC) Screen Negative (NEGATIVE) Test 01/09/19 03:50 01/09/19 05:40 01/09/19 07:37 01/09/19 12:00 White Blood Count 19.8 K/UL (4.8-10.8) H Red Blood Count 3.54 M/UL (4.20-5.40) L Hemoglobin 11.0 G/DL (12.0-16.0) L Hematocrit 33.0 % (37.0-47.0) L Mean Corpuscular Volume 93 FL (80-99) Mean Corpuscular Hemoglobin 31.0 PG (27.0-31.0) Mean Corpuscular Hemoglobin Concent 33.3 G/DL (32.0-36.0) Red Cell Distribution Width 13.2 % (11.6-14.8) Platelet Count 231 K/UL (150-450) Mean Platelet Volume 6.7 FL (6.5-10.1) Neutrophils (%) (Auto) % (45.0-75.0) Lymphocytes (%) (Auto) % (20.0-45.0) Monocytes (%) (Auto) % (1.0-10.0) Eosinophils (%) (Auto) % (0.0-3.0) Basophils (%) (Auto) % (0.0-2.0) Differential Total Cells Counted 100 Neutrophils % (Manual) 82 % (45-75) H Lymphocytes % (Manual) 7 % (20-45) L Monocytes % (Manual) 1 % (1-10) Eosinophils % (Manual) 0 % (0-3) Basophils % (Manual) 0 % (0-2) Band Neutrophils 10 % (0-8) H Platelet Estimate Adequate Platelet Morphology Normal Hypochromasia 1+ Anisocytosis 1+ Sodium Level 144 MMOL/L (136-145) Potassium Level 3.3 MMOL/L (3.5-5.1) L Chloride Level 111 MMOL/L (98-107) H Carbon Dioxide Level 24 MMOL/L (21-32) Anion Gap 9 mmol/L (5-15) Blood Urea Nitrogen 16 mg/dL (7-18) Creatinine 1.1 MG/DL (0.55-1.30) Estimat Glomerular Filtration Rate 57.2 mL/min (>60) Glucose Level 100 MG/DL (74-106) Lactic Acid Level 3.20 mmol/L (0.4-2.0) H 3.40 mmol/L (0.66-2.22) H 2.10 mmol/L (0.4-2.0) H Calcium Level 7.2 MG/DL (8.5-10.1) L Magnesium Level 1.3 MG/DL (1.8-2.4) L Total Bilirubin 0.6 MG/DL (0.2-1.0) Aspartate Amino Transf (AST/SGOT) 22 U/L (15-37) Alanine Aminotransferase (ALT/SGPT) 11 U/L (12-78) L Alkaline Phosphatase 49 U/L (46-116) Total Protein 5.6 G/DL (6.4-8.2) L Albumin 2.3 G/DL (3.4-5.0) L Globulin 3.3 g/dL Albumin/Globulin Ratio 0.7 (1.0-2.7) L Arterial Blood pH 7.411 (7.350-7.450) Arterial Blood Partial Pressure CO2 32.1 mmHg (35.0-45.0) L Arterial Blood Partial Pressure O2 118.9 mmHg (75.0-100.0) H Arterial Blood HCO3 19.9 mmol/L (22.0-26.0) L Arterial Blood Oxygen Saturation 97.8 % (95-100) Arterial Blood Base Excess -3.9 (-2-2) L Chriss Test Positive Height (Feet): 5 Height (Inches): 4.00 Weight (Pounds): 110 Medications Current Medications Medications (Trade) Dose Ordered Sig/Christophe Route PRN Reason Start Time Stop Time Status Last Admin Dose Admin Acetaminophen (Tylenol) 650 mg Q4H PRN ORAL Mild Pain/Temp > 100.5 01/09/19 01:30 02/08/19 01:29 Al Hydroxide/Mg Hydroxide (Mylanta) 30 ml EVERY 4 HOURS PRN ORAL Constipation 01/09/19 01:30 02/08/19 01:29 Heparin Sodium (Porcine) (Heparin 5000 units/ml) 5,000 units EVERY 12 HOURS SUBQ 01/09/19 09:00 02/08/19 08:59 01/09/19 09:25 Lorazepam (Ativan 2mg/ml 1ml) 0.5 mg Q2H PRN IV For Seizures 01/09/19 11:30 01/16/19 11:29 Lorazepam (Ativan 2mg/ml 1ml) 1 mg EVERY 3 HOURS PRN IV Agitation 01/09/19 01:30 01/16/19 01:29 Morphine Sulfate (Morphine Sulfate) 2 mg Q3HR PRN IVP For Pain 01/09/19 01:30 01/16/19 01:29 Pantoprazole (Protonix) 40 mg DAILY ORAL 01/09/19 09:00 02/08/19 08:59 01/09/19 09:24 Piperacillin Sod/ Tazobactam Sod 3.375 gm/Sodium Chloride 110 ml @ 27.5 mls/hr EVERY 6 HOURS IVPB 01/09/19 06:00 01/14/19 05:59 01/09/19 11:44 Sodium Chloride 1,000 ml @ 100 mls/hr Q10H IV 01/09/19 01:30 02/08/19 01:29 01/09/19 11:41 Vancomycin HCl (Vanco rx to dose) 1 ea DAILY PRN MISC Per rx protocol 01/09/19 01:30 02/08/19 01:29 Vancomycin HCl 750 mg/Sodium Chloride 275 ml @ 183.333 mls/hr Q24H IVPB 01/10/19 04:00 01/15/19 03:59 Assessment/Plan Problem List: (1) Leukocytosis Assessment & Plan: Leukocytosis likely due to stress reaction. Lactic acidosis resolving Labs noted Continue trend labs ICD Codes: D72.829 - Elevated white blood cell count, unspecified SNOMED: 652613367, 692422340 (2) Drug overdose ICD Codes: T50.901A - Poisoning by unspecified drugs, medicaments and biological substances, accidental (unintentional), initial encounter SNOMED: 40937342 (3) Respiratory failure ICD Codes: J96.90 - Respiratory failure, unspecified, unspecified whether with hypoxia or hypercapnia SNOMED: 028301804, 938856352 (4) Lactic acid acidosis ICD Codes: E87.2 - Acidosis SNOMED: 19801248 (5) Altered mental status, unspecified ICD Codes: R41.82 - Altered mental status, unspecified SNOMED: 098051591 (6) Deep tissue injury Assessment & Plan: Pt presented on admission with multiple pressure injuries.Non-blanching erythema without induration/fluctuance medial R elbow. DTPI L elbow.Base of wound maroon and indurated.(L)0.9cm x (W)0.8cm. An area of non-blanchable erythema without induration/fluctuance medial L elbow. DTPI sacrococcygeal area. base of wound indurated -purple with surrounding red tinged borders. (L)1cm x (W)1cm. DTPI L buttocks. base of wound maroon,indurated with irregular shaped borders that are red . Periwound is pink and blanchable. (L)4.2cm x (W)3.5cm. Non-blanchable erythema that is indurated at base of wound L buttocks (L)4.5cm x (W)5cm.Periwound pink and blanchable. Non-blanchable erythema without induration or fluctuance L heel. Non-blanchable erythema without induration or fluctuance L lateral Malleolus. Non-blanchable erythema without induration /fluctuance R heel. Tx.Plan: Apply Moisture Barrier paste to sacrococcygeal area, R and L buttocks. Apply Cavilon periwound. Cover with Optifoam drsgs. Change every 3 days and prn. Apply Cavilon Skin Barrier to R and L elbows. Cover each site with Optifoam drsg. Change every 7 days and prn. Apply Cavilon Skin Barrier to R and L heels. Cover each heel with Optifoam drsg. Change every 7 days and prn. APM/MEL Mattress overlay. Reposition at lease every 2 hours or as tolerated. Off-load heels with pillow. ICD Codes: T14.8XXA - Other injury of unspecified body region, initial encounter SNOMED: 032119238 Luis Sotomayorya Jan 09, 2019 17:21
--- NOTE | 2019-01-09 18:46 | NUR ---
NURSE NOTES: Family at bedside. Turned and repositioned pt. Pt is tolerating the current vent setting. O2 sat 100% on FiO2 30%. Will continue to monitor.
--- NOTE | 2019-01-09 19:15 | NUR ---
HAND-OFF: Report given to TONY Montemayor.
--- NOTE | 2019-01-09 19:30 | NUR ---
NURSE NOTES: Received pt in no acute distress; calm, asleep, withdraws to pain. Afebrile, tachycardic at 112-116bpm, sinus; no ectopy, no QRS widening; BP stable. Orally intubated with #7.5 ETT placed over left lip at 23cm and vent setting of AC 20 TV 420, fiO2.30 peep 5, saturating 100%. No secretions. Bilat soft wrist restaints in place. PIV site on LAC intact with IVF of NS infuses at 100ml/h. HL on RFA patent. OGT in place; currently clamped; pt is NPO. FC patent; Multiple DTI's as documented and covered with optifoam. Will continue to monitor LOC and implement seizure precautions.
--- NOTE | 2019-01-09 20:00 | NUR ---
NURSE NOTES: Placed pt on P-200 mattress; bed rails padded. Pt briefly wakes up but goes back to sleep right away.
--- NOTE | 2019-01-09 21:00 | NUR ---
NURSE NOTES: Parents came to visit briefly. Pt remains asleep.
--- NOTE | 2019-01-09 22:00 | NUR ---
NURSE NOTES: Poison control personnel called to check on pt's status; update given
[2019-01-10] VITALS (24 sets, daily range): BP systolic 111–147; BP diastolic 66–93
--- NOTE | 2019-01-10 | NUR ---
NURSE NOTES:Remains calm, asleep with bilat soft wrist restraints on. No seizures noted. Good UOP. IV site patent. VSS, afebrile, no distress.
--- NOTE | 2019-01-10 02:00 | NUR ---
NURSE NOTES: Awake and extremely restless/agitated. Attempts to get up despite restraints. 4 staff needed to hold her down. Ativan 0.5mg IVP given but remained restless. Stayed with pt trying to calm her down.
[2019-01-10] MEDS: Morphine Sulfate 4mg/ml Inj (IV USE ONLY) IVP PRN ×2 (02:31→11:28)
--- NOTE | 2019-01-10 02:31 | NUR ---
NURSE NOTES: Still restless, agitated and uncooperative. Morphine 2 mg IVP given. Called Dr Allison and ordered to place pt on CPAP. do ABG after and if OK may extubate. Informed Nsg supv.
--- NOTE | 2019-01-10 02:38 | NUR ---
NURSE NOTES: CALLED AND SPOKE WITH CHADWICK AT THIS TIME, PATIENT AWAKE AND TRYING TO PULL ETT, ON RESTRAINTS AND CONTINUES TO SIT UP. ORDER IS TO PUT THE PATIENT IN cPAP PS8 AND DO AN ABG IN AN HOUR, IF ABG IS GOOD THEN EXTUBATE. ORDERS READ BACK AND VERIFIED BY .
--- NOTE | 2019-01-10 03:15 | NUR ---
NURSE NOTES: Pt now on CPAP but now asleep and calm.Tolerating well, sats 96%. Will continue to monitor LOC and maintain soft wrist restraints.
[2019-01-10] MEDS ORDERED: Vancomycin 750mg/NS 275ml IVPB SCH ×2 (04:00)
--- NOTE | 2019-01-10 05:20 | NUR ---
NURSE NOTES: Sleeping, calm, restrained. ABGs done on CPAP. Bicarb 15.5, tolerating CPAP mode.Will inform Dr Allison of ABG's
[2019-01-10 05:32] LABS: HEMATOCRIT 28.9 % (37.0-47.0); HEMOGLOBIN 9.3 G/DL (12.0-16.0); MEAN CORPUSCULAR VOLUME 95 FL (80-99); PLATELET COUNT 175 K/UL (150-450); RED BLOOD COUNT 3.04 M/UL (4.20-5.40); RED CELL DISTRIBUTION WIDTH 13.4 % (11.6-14.8); WHITE BLOOD COUNT 18.6 K/UL (4.8-10.8)
[2019-01-10] MEDS: Piperacillin/Tazobactam 3.375 GM in NS 110 ML IVPB SCH ×3 (05:33→21:34)
[2019-01-10 06:08] LABS: ALANINE AMINOTRANSFERASE 11 U/L (12-78); ALBUMIN/GLOBULIN RATIO 0.6 (1.0-2.7); ALKALINE PHOSPHATASE 61 U/L (46-116); ANION GAP 9 mmol/L (5-15); ASPARTATE AMINO TRANSFERASE 27 U/L (15-37); BILIRUBIN,TOTAL 0.4 MG/DL (0.2-1.0); BLOOD UREA NITROGEN 11 mg/dL (7-18); CALCIUM 7.2 MG/DL (8.5-10.1); CARBON DIOXIDE 19 MMOL/L (21-32); CHLORIDE 114 MMOL/L (98-107); CREATININE 0.7 MG/DL (0.55-1.30); POTASSIUM 3.2 MMOL/L (3.5-5.1); SODIUM 142 MMOL/L (136-145)
[2019-01-10 06:12] LABS: AMYLASE 844 U/L (25-115)
--- NOTE | 2019-01-10 06:52 | NUR ---
NURSE NOTES: Called Dr Allison and relayed ABG results. Pt quiet, calm asleep at this time. Ordered to place pt back on AC and extubate when pt wakes up.
--- NOTE | 2019-01-10 06:57 | NUR ---
RESPIRATORY NOTE: received pt orally intubated with ETT 7.5, placed 22cm at the lip. ETT secured via anchor fast with no redness or skin tears visible. no resp ditres noted at this time. orders to place pt back on AC, once pt wakes up to extubate and place co2 monitoring. will cont to monitor
--- NOTE | 2019-01-10 07:01 | NUR ---
HAND-OFF: Report given to Shari Perez RN.
--- NOTE | 2019-01-10 07:02 | NUR ---
NURSE NOTES: Received patient from TONY Montemayor. Patient status post suicide attempt. Patient sedated at this time with no response to voice. 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 7.5cm ETT noted with 23cm showing at the lip line. Ventilator setting AC 20, tidal volume 420, FiO2 30%, and PEEP 5. Patient tolerating ventilator setting with respiratory rate of 20 and oxygen saturation of 97%. Bilateral soft wrist restraints noted. Patient reported to have had an episode of agitation and attempted to self extubate in the lan engineer. Patient given medication for agitation. ABG results reported to Dr Allison this morning. Dr Allison ordered for the patient to be extubated when she wakes up if the capnography is within normal limits. Will follow up with respiratory therapist. Will monitor patient for agitation and hold all sedation medications. OGT noted with black discoloration present in the tube. Patient is NPO at this time. 18G Peripheral IV noted on right hand and 20G PIV noted on left antecubital. Both patent and asymptomatic. Normal saline infusing at 100mL/hr. Zoysn infusing at 27.5mL/hr. Will continue to monitor infusions. Several DTIs noted on bony prominences. Patient on low air loss mattress for skin protection. Patient has a low potassium of 3.2 this morning. Will notify MD. Patient has an amylase of 844 and lipase of 446 this morning. Amylase trending down. Lipase trending up. Will notify MD and request GI consult.
--- NOTE | 2019-01-10 08:12 | NUR ---
NURSE NOTES: Called Dr Allison and reported serum potassium and serum lipase and amylase values this morning. MD ordered 20mEq KCL IV and abdominal ultrasound using telephone order/read back. Orders placed at this time.
--- NOTE | 2019-01-10 08:44 | Critical Care Progress Note ---
Assessment/Plan Assessment/Plan drug overdose respiratory failure acute leukocytosis anemia metabolic acidosis severe protein calorie malnutrition pancreatitis PLAN support as able IV hydration DVT prophylaxis ID eval vent support try to wean monitor HH surgical follow up noted critical medications/laboratory data/nursing notes/ICU care reviewed in detail note reviewed and edited care discussed with RN and RT ICU time spent 40 minutes Critical Care - Subjective Interval Events: icu care reviewed on vent events noted ROS Limited/Unobtainable: Yes Condition: critical EKG Rhythm: Sinus Rhythm I&O: Intake and Output 01/09/19 01/10/19 19:00 07:00 Intake Total 1992.5 ml 1622.500 ml Output Total 840 ml 1130 ml Balance 1152.5 ml 492.500 ml Intake Oral 0 ml IV Total 1792.5 ml 1622.500 ml Other 200 ml Output Urine Total 840 ml 1130 ml Critical Care - Objective ET-Tube: 7.5 ET Position: 22 Last 24 Hour Vital Signs Date Time Temp Pulse Resp B/P (MAP) Pulse Ox O2 Delivery O2 Flow Rate FiO2 01/10/19 08:32 100 20 30 01/10/19 08:00 Mechanical Ventilator 01/10/19 08:00 100 01/10/19 08:00 30 01/10/19 08:00 98.5 101 21 115/73 (87) 98 01/10/19 07:00 98.5 102 22 113/72 (86) 97 01/10/19 06:55 101 23 30 01/10/19 06:00 101 22 115/71 (86) 97 01/10/19 05:05 104 21 40 01/10/19 05:00 104 20 111/70 (84) 96 01/10/19 04:00 98.9 112 19 117/69 (85) 98 01/10/19 04:00 Mechanical Ventilator 01/10/19 04:00 40 01/10/19 04:00 114 01/10/19 03:00 120 19 111/67 (82) 95 01/10/19 02:40 134 22 40 01/10/19 02:00 108 22 115/75 (88) 100 01/10/19 01:00 113 20 117/76 (90) 99 01/10/19 00:40 111 21 30 30 01/10/19 00:00 98.9 111 20 118/75 (89) 99 01/10/19 00:00 Mechanical Ventilator 01/10/19 00:00 30 01/10/19 00:00 111 01/09/19 23:23 111 20 30 30 01/09/19 23:00 111 20 116/72 (87) 99 01/09/19 22:00 112 20 117/73 (88) 100 01/09/19 21:00 118 22 118/72 (87) 99 01/09/19 20:44 116 22 30 30 01/09/19 20:00 30 01/09/19 20:00 116 01/09/19 20:00 Mechanical Ventilator 01/09/19 20:00 98.5 115 23 114/75 (88) 100 01/09/19 19:02 117 23 30 30 01/09/19 19:00 118 24 95/56 (69) 100 01/09/19 18:00 120 24 108/67 (81) 100 01/09/19 17:00 121 26 106/65 (79) 99 01/09/19 16:34 121 23 30 01/09/19 16:26 122 01/09/19 16:00 30 01/09/19 16:00 98.8 122 25 107/65 (79) 98 01/09/19 16:00 Mechanical Ventilator 01/09/19 15:00 122 26 30 01/09/19 15:00 122 26 112/66 (81) 98 01/09/19 14:00 119 26 105/69 (81) 99 01/09/19 13:00 119 24 103/56 (72) 99 01/09/19 12:38 116 25 30 01/09/19 12:00 98.5 118 25 106/67 (80) 97 01/09/19 12:00 30 01/09/19 12:00 Mechanical Ventilator 01/09/19 11:56 119 01/09/19 11:00 121 26 107/67 (80) 97 01/09/19 10:57 120 24 30 01/09/19 10:00 123 24 111/70 (84) 100 01/09/19 09:41 123 01/09/19 09:40 98.6 01/09/19 09:00 125 25 113/61 (78) 99 Labs: Labs Test 01/08/19 21:44 01/08/19 21:45 01/08/19 22:30 01/08/19 23:15 Arterial Blood pH 7.443 (7.350-7.450) Arterial Blood Partial Pressure CO2 32.6 mmHg (35.0-45.0) Arterial Blood Partial Pressure O2 68.3 mmHg (75.0-100.0) Arterial Blood HCO3 21.8 mmol/L (22.0-26.0) Arterial Blood Oxygen Saturation 92.7 % (95-100) Arterial Blood Base Excess -1.6 (-2-2) Chriss Test Positive Venous Blood pH Venous Blood Partial Pressure CO2 Venous Blood Partial Pressure O2 Venous Blood HCO3 Venous Blood Total Carbon Dioxide Venous Bld O2 Saturation (Measured) Venous Blood Oxygen Saturation Venous Blood Base Excess Methemoglobin 0.6 Sodium (Blood Gas) White Blood Count 26.1 K/UL (4.8-10.8) Red Blood Count 4.05 M/UL (4.20-5.40) Hemoglobin 12.4 G/DL (12.0-16.0) Hematocrit 35.9 % (37.0-47.0) Mean Corpuscular Volume 89 FL (80-99) Mean Corpuscular Hemoglobin 30.6 PG (27.0-31.0) Mean Corpuscular Hemoglobin Concent 34.5 G/DL (32.0-36.0) Red Cell Distribution Width 12.4 % (11.6-14.8) Platelet Count 275 K/UL (150-450) Mean Platelet Volume 6.3 FL (6.5-10.1) Neutrophils (%) (Auto) % (45.0-75.0) Lymphocytes (%) (Auto) % (20.0-45.0) Monocytes (%) (Auto) % (1.0-10.0) Eosinophils (%) (Auto) % (0.0-3.0) Basophils (%) (Auto) % (0.0-2.0) Differential Total Cells Counted 100 Neutrophils % (Manual) 62 % (45-75) Lymphocytes % (Manual) 6 % (20-45) Monocytes % (Manual) 5 % (1-10) Eosinophils % (Manual) 0 % (0-3) Basophils % (Manual) 0 % (0-2) Band Neutrophils 27 % (0-8) Platelet Estimate Adequate Platelet Morphology Normal Red Blood Cell Morphology Normal Prothrombin Time 10.7 SEC (9.30-11.50) Prothromb Time International Ratio 1.0 (0.9-1.1) Activated Partial Thromboplast Time 25 SEC (23-33) Sodium Level 143 MMOL/L (136-145) Potassium Level 3.3 MMOL/L (3.5-5.1) Chloride Level 106 MMOL/L (98-107) Carbon Dioxide Level 23 MMOL/L (21-32) Anion Gap 14 mmol/L (5-15) Blood Urea Nitrogen 19 mg/dL (7-18) Creatinine 1.5 MG/DL (0.55-1.30) Estimat Glomerular Filtration Rate 40.0 mL/min (>60) Glucose Level 104 MG/DL (74-106) Lactic Acid Level 5.50 mmol/L (0.4-2.0) 3.60 mmol/L (0.66-2.22) Calcium Level 8.2 MG/DL (8.5-10.1) Phosphorus Level 3.9 MG/DL (2.5-4.9) Magnesium Level 1.2 MG/DL (1.8-2.4) Total Bilirubin 0.6 MG/DL (0.2-1.0) Aspartate Amino Transf (AST/SGOT) 21 U/L (15-37) Alanine Aminotransferase (ALT/SGPT) 16 U/L (12-78) Alkaline Phosphatase 61 U/L (46-116) Total Creatine Kinase 251 U/L (26-308) Creatine Kinase MB 2.4 NG/ML (0.0-3.6) Creatine Kinase MB Relative Index 0.9 Troponin I 0.007 ng/mL (0.000-0.056) Pro-B-Type Natriuretic Peptide 74 pg/mL (0-125) Total Protein 6.2 G/DL (6.4-8.2) Albumin 2.9 G/DL (3.4-5.0) Globulin 3.3 g/dL Albumin/Globulin Ratio 0.9 (1.0-2.7) Triglycerides Level 37 MG/DL (30-150) Amylase Level 1149 U/L (25-115) Lipase 112 U/L (73-393) Human Chorionic Gonadotropin, Quant 1 mIU/mL (1-6) Salicylates Level 0.2 ug/mL (2.8-20) Acetaminophen Level < 2 MCG/ML (10-30) Serum Alcohol < 3 mg/dL Urine Color Pale yellow Urine Appearance Cloudy Urine pH 6 (4.5-8.0) Urine Specific [place] 1.015 (1.005-1.035) Urine Protein 2+ (NEGATIVE) Urine Glucose (UA) Negative (NEGATIVE) Urine Ketones Negative (NEGATIVE) Urine Blood 1+ (NEGATIVE) Urine Nitrite Negative (NEGATIVE) Urine Bilirubin Negative (NEGATIVE) Urine Urobilinogen Normal MG/DL (0.0-1.0) Urine Leukocyte Esterase 3+ (NEGATIVE) Urine RBC 2-4 /HPF (0 - 2) Urine WBC Tntc /HPF (0 - 2) Urine Squamous Epithelial Cells None /LPF (NONE/OCC) Urine Bacteria Many /HPF (NONE) Urine HCG, Qualitative Negative (NEGATIVE) Urine Opiates Screen Negative (NEGATIVE) Urine Barbiturates Screen Negative (NEGATIVE) Phencyclidine (PCP) Screen Negative (NEGATIVE) Urine Amphetamines Screen Negative (NEGATIVE) Urine Benzodiazepines Screen Positive (NEGATIVE) Urine Cocaine Screen Negative (NEGATIVE) Urine Marijuana (THC) Screen Negative (NEGATIVE) Test 01/09/19 03:50 01/09/19 05:40 01/09/19 07:37 01/09/19 12:00 White Blood Count 19.8 K/UL (4.8-10.8) Red Blood Count 3.54 M/UL (4.20-5.40) Hemoglobin 11.0 G/DL (12.0-16.0) Hematocrit 33.0 % (37.0-47.0) Mean Corpuscular Volume 93 FL (80-99) Mean Corpuscular Hemoglobin 31.0 PG (27.0-31.0) Mean Corpuscular Hemoglobin Concent 33.3 G/DL (32.0-36.0) Red Cell Distribution Width 13.2 % (11.6-14.8) Platelet Count 231 K/UL (150-450) Mean Platelet Volume 6.7 FL (6.5-10.1) Neutrophils (%) (Auto) % (45.0-75.0) Lymphocytes (%) (Auto) % (20.0-45.0) Monocytes (%) (Auto) % (1.0-10.0) Eosinophils (%) (Auto) % (0.0-3.0) Basophils (%) (Auto) % (0.0-2.0) Differential Total Cells Counted 100 Neutrophils % (Manual) 82 % (45-75) Lymphocytes % (Manual) 7 % (20-45) Monocytes % (Manual) 1 % (1-10) Eosinophils % (Manual) 0 % (0-3) Basophils % (Manual) 0 % (0-2) Band Neutrophils 10 % (0-8) Platelet Estimate Adequate Platelet Morphology Normal Hypochromasia 1+ Anisocytosis 1+ Sodium Level 144 MMOL/L (136-145) Potassium Level 3.3 MMOL/L (3.5-5.1) Chloride Level 111 MMOL/L (98-107) Carbon Dioxide Level 24 MMOL/L (21-32) Anion Gap 9 mmol/L (5-15) Blood Urea Nitrogen 16 mg/dL (7-18) Creatinine 1.1 MG/DL (0.55-1.30) Estimat Glomerular Filtration Rate 57.2 mL/min (>60) Glucose Level 100 MG/DL (74-106) Lactic Acid Level 3.20 mmol/L (0.4-2.0) 3.40 mmol/L (0.66-2.22) 2.10 mmol/L (0.4-2.0) Calcium Level 7.2 MG/DL (8.5-10.1) Magnesium Level 1.3 MG/DL (1.8-2.4) Total Bilirubin 0.6 MG/DL (0.2-1.0) Aspartate Amino Transf (AST/SGOT) 22 U/L (15-37) Alanine Aminotransferase (ALT/SGPT) 11 U/L (12-78) Alkaline Phosphatase 49 U/L (46-116) Total Protein 5.6 G/DL (6.4-8.2) Albumin 2.3 G/DL (3.4-5.0) Globulin 3.3 g/dL Albumin/Globulin Ratio 0.7 (1.0-2.7) Arterial Blood pH 7.411 (7.350-7.450) Arterial Blood Partial Pressure CO2 32.1 mmHg (35.0-45.0) Arterial Blood Partial Pressure O2 118.9 mmHg (75.0-100.0) Arterial Blood HCO3 19.9 mmol/L (22.0-26.0) Arterial Blood Oxygen Saturation 97.8 % (95-100) Arterial Blood Base Excess -3.9 (-2-2) Chriss Test Positive Test 01/09/19 18:55 01/10/19 03:55 01/10/19 05:19 Lactic Acid Level 1.40 mmol/L (0.4-2.0) 0.70 mmol/L (0.4-2.0) White Blood Count 18.6 K/UL (4.8-10.8) Red Blood Count 3.04 M/UL (4.20-5.40) Hemoglobin 9.3 G/DL (12.0-16.0) Hematocrit 28.9 % (37.0-47.0) Mean Corpuscular Volume 95 FL (80-99) Mean Corpuscular Hemoglobin 30.7 PG (27.0-31.0) Mean Corpuscular Hemoglobin Concent 32.4 G/DL (32.0-36.0) Red Cell Distribution Width 13.4 % (11.6-14.8) Platelet Count 175 K/UL (150-450) Mean Platelet Volume 6.4 FL (6.5-10.1) Neutrophils (%) (Auto) % (45.0-75.0) Lymphocytes (%) (Auto) % (20.0-45.0) Monocytes (%) (Auto) % (1.0-10.0) Eosinophils (%) (Auto) % (0.0-3.0) Basophils (%) (Auto) % (0.0-2.0) Erythrocyte Sedimentation Rate 74 MM/HR (0-20) Prothrombin Time 10.2 SEC (9.30-11.50) Prothromb Time International Ratio 1.0 (0.9-1.1) Activated Partial Thromboplast Time 36 SEC (23-33) Sodium Level 142 MMOL/L (136-145) Potassium Level 3.2 MMOL/L (3.5-5.1) Chloride Level 114 MMOL/L (98-107) Carbon Dioxide Level 19 MMOL/L (21-32) Anion Gap 9 mmol/L (5-15) Blood Urea Nitrogen 11 mg/dL (7-18) Creatinine 0.7 MG/DL (0.55-1.30) Estimat Glomerular Filtration Rate > 60 mL/min (>60) Glucose Level 97 MG/DL (74-106) Calcium Level 7.2 MG/DL (8.5-10.1) Total Bilirubin 0.4 MG/DL (0.2-1.0) Aspartate Amino Transf (AST/SGOT) 27 U/L (15-37) Alanine Aminotransferase (ALT/SGPT) 11 U/L (12-78) Alkaline Phosphatase 61 U/L (46-116) C-Reactive Protein, Quantitative 42.2 mg/dL (0.00-0.90) Total Protein 5.4 G/DL (6.4-8.2) Albumin 2.0 G/DL (3.4-5.0) Globulin 3.4 g/dL Albumin/Globulin Ratio 0.6 (1.0-2.7) Amylase Level 844 U/L (25-115) Lipase 446 U/L (73-393) Arterial Blood pH 7.351 (7.350-7.450) Arterial Blood Partial Pressure CO2 28.6 mmHg (35.0-45.0) Arterial Blood Partial Pressure O2 82.4 mmHg (75.0-100.0) Arterial Blood HCO3 15.5 mmol/L (22.0-26.0) Arterial Blood Oxygen Saturation 94.8 % (95-100) Arterial Blood Base Excess -9 (-2-2) Chriss Test N/a Objective: WDWN sedated on vent; ETT in place clear breath sounds bilaterally without rhonchi or wheeze [id number] without MRG NABS nontender no HSM no CCE reduced LOC Micro: Microbiology Date/Time Source Procedure Growth Status 01/08/19 23:15 Blood Blood Culture - Preliminary NO GROWTH AFTER 24 HOURS Resulted 01/08/19 23:00 Blood Blood Culture - Preliminary NO GROWTH AFTER 24 HOURS Resulted Justus Larsen MD Jan 10, 2019 08:44
--- NOTE | 2019-01-10 09:13 | NUR ---
RESPIRATORY NOTE: extubated pt at 09[address] pt on 2L NC with etCO2 attached. etCO2 reading 20-23 and current saturation 92%. RN at bedside during time of extubation. will cont to monitor.
[2019-01-10] MEDS: Heparin 5000 units/ml inj SUBQ SCH ×2 (09:44→21:17)
--- NOTE | 2019-01-10 10:00 | NUR ---
NURSE NOTES: Blood pressure 146/88, HR 139, RR 25, oxygen saturation 90% on 4L NC. Patient distressed and confused to time, place, and purpose. Patient rambling and not making sense. Family at the bedside. Patient status post extubation. Both PIV leaking. Will insert new IV at this time. Will continue to monitor patient. Family at the bedside.
[2019-01-10] MEDS: Pantoprazole Inj IVP SCH (10:25)
--- NOTE | 2019-01-10 11:09 | Surgery Progress Note ---
Surgery Progress Note Subjective Additional Comments slowly waking up tachycardic labs noted exam unchanged intubated on vent support Objective Last 24 Hour Vital Signs Date Time Temp Pulse Resp B/P (MAP) Pulse Ox O2 Delivery O2 Flow Rate FiO2 01/10/19 09:17 91 Nasal Cannula 2.0 28 01/10/19 09:15 Nasal Cannula 2.0 28 01/10/19 08:32 100 20 30 01/10/19 08:00 Mechanical Ventilator 01/10/19 08:00 100 01/10/19 08:00 30 01/10/19 08:00 98.5 101 21 115/73 (87) 98 01/10/19 07:00 98.5 102 22 113/72 (86) 97 01/10/19 06:55 101 23 30 01/10/19 06:00 101 22 115/71 (86) 97 01/10/19 05:05 104 21 40 01/10/19 05:00 104 20 111/70 (84) 96 01/10/19 04:00 98.9 112 19 117/69 (85) 98 01/10/19 04:00 Mechanical Ventilator 01/10/19 04:00 40 01/10/19 04:00 114 01/10/19 03:00 120 19 111/67 (82) 95 01/10/19 02:40 134 22 40 01/10/19 02:00 108 22 115/75 (88) 100 01/10/19 01:00 113 20 117/76 (90) 99 01/10/19 00:40 111 21 30 30 01/10/19 00:00 98.9 111 20 118/75 (89) 99 01/10/19 00:00 Mechanical Ventilator 01/10/19 00:00 30 01/10/19 00:00 111 01/09/19 23:23 111 20 30 30 01/09/19 23:00 111 20 116/72 (87) 99 01/09/19 22:00 112 20 117/73 (88) 100 01/09/19 21:00 118 22 118/72 (87) 99 01/09/19 20:44 116 22 30 30 01/09/19 20:00 30 01/09/19 20:00 116 01/09/19 20:00 Mechanical Ventilator 01/09/19 20:00 98.5 115 23 114/75 (88) 100 01/09/19 19:02 117 23 30 30 01/09/19 19:00 118 24 95/56 (69) 100 01/09/19 18:00 120 24 108/67 (81) 100 01/09/19 17:00 121 26 106/65 (79) 99 01/09/19 16:34 121 23 30 01/09/19 16:26 122 01/09/19 16:00 30 01/09/19 16:00 98.8 122 25 107/65 (79) 98 01/09/19 16:00 Mechanical Ventilator 01/09/19 15:00 122 26 30 01/09/19 15:00 122 26 112/66 (81) 98 01/09/19 14:00 119 26 105/69 (81) 99 01/09/19 13:00 119 24 103/56 (72) 99 01/09/19 12:38 116 25 30 01/09/19 12:00 98.5 118 25 106/67 (80) 97 01/09/19 12:00 30 01/09/19 12:00 Mechanical Ventilator 01/09/19 11:56 119 I&O Intake and Output 01/09/19 01/10/19 19:00 07:00 Intake Total 1992.5 ml 1622.500 ml Output Total 840 ml 1130 ml Balance 1152.5 ml 492.500 ml Intake Oral 0 ml IV Total 1792.5 ml 1622.500 ml Other 200 ml Output Urine Total 840 ml 1130 ml Dressing: dry Wound: clean Cardiovascular: RSR Respiratory: clear, other Abdomen: soft, non-tender, non-distended, decreased bowel sounds Extremities: no edema, no tenderness, no cyanosis Laboratory Tests Test 01/09/19 12:00 01/09/19 18:55 01/10/19 03:55 01/10/19 05:19 Lactic Acid Level 2.10 mmol/L (0.4-2.0) H 1.40 mmol/L (0.4-2.0) 0.70 mmol/L (0.4-2.0) White Blood Count 18.6 K/UL (4.8-10.8) H Red Blood Count 3.04 M/UL (4.20-5.40) L Hemoglobin 9.3 G/DL (12.0-16.0) L Hematocrit 28.9 % (37.0-47.0) L Mean Corpuscular Volume 95 FL (80-99) Mean Corpuscular Hemoglobin 30.7 PG (27.0-31.0) Mean Corpuscular Hemoglobin Concent 32.4 G/DL (32.0-36.0) Red Cell Distribution Width 13.4 % (11.6-14.8) Platelet Count 175 K/UL (150-450) Mean Platelet Volume 6.4 FL (6.5-10.1) L Neutrophils (%) (Auto) % (45.0-75.0) Lymphocytes (%) (Auto) % (20.0-45.0) Monocytes (%) (Auto) % (1.0-10.0) Eosinophils (%) (Auto) % (0.0-3.0) Basophils (%) (Auto) % (0.0-2.0) Differential Total Cells Counted 100 Neutrophils % (Manual) 85 % (45-75) H Lymphocytes % (Manual) 6 % (20-45) L Monocytes % (Manual) 7 % (1-10) Eosinophils % (Manual) 0 % (0-3) Basophils % (Manual) 0 % (0-2) Band Neutrophils 2 % (0-8) Platelet Estimate Adequate Platelet Morphology Normal Hypochromasia 2+ Erythrocyte Sedimentation Rate 74 MM/HR (0-20) H Prothrombin Time 10.2 SEC (9.30-11.50) Prothromb Time International Ratio 1.0 (0.9-1.1) Activated Partial Thromboplast Time 36 SEC (23-33) H Sodium Level 142 MMOL/L (136-145) Potassium Level 3.2 MMOL/L (3.5-5.1) L Chloride Level 114 MMOL/L (98-107) H Carbon Dioxide Level 19 MMOL/L (21-32) L Anion Gap 9 mmol/L (5-15) Blood Urea Nitrogen 11 mg/dL (7-18) Creatinine 0.7 MG/DL (0.55-1.30) Estimat Glomerular Filtration Rate > 60 mL/min (>60) Glucose Level 97 MG/DL (74-106) Calcium Level 7.2 MG/DL (8.5-10.1) L Total Bilirubin 0.4 MG/DL (0.2-1.0) Aspartate Amino Transf (AST/SGOT) 27 U/L (15-37) Alanine Aminotransferase (ALT/SGPT) 11 U/L (12-78) L Alkaline Phosphatase 61 U/L (46-116) C-Reactive Protein, Quantitative 42.2 mg/dL (0.00-0.90) H Total Protein 5.4 G/DL (6.4-8.2) L Albumin 2.0 G/DL (3.4-5.0) L Globulin 3.4 g/dL Albumin/Globulin Ratio 0.6 (1.0-2.7) L Amylase Level 844 U/L (25-115) *H Lipase 446 U/L (73-393) H Arterial Blood pH 7.351 (7.350-7.450) Arterial Blood Partial Pressure CO2 28.6 mmHg (35.0-45.0) L Arterial Blood Partial Pressure O2 82.4 mmHg (75.0-100.0) Arterial Blood HCO3 15.5 mmol/L (22.0-26.0) *L Arterial Blood Oxygen Saturation 94.8 % (95-100) L Arterial Blood Base Excess -9 (-2-2) L Chriss Test N/a Plan Problems: (1) Leukocytosis Assessment & Plan: Leukocytosis likely due to stress reaction. Lactic acidosis resolved Labs noted Continue trend labs (2) Drug overdose (3) Respiratory failure (4) Lactic acid acidosis (5) Altered mental status, unspecified (6) Deep tissue injury Assessment & Plan: Pt presented on admission with multiple pressure injuries.Non-blanching erythema without induration/fluctuance medial R elbow. DTPI L elbow.Base of wound maroon and indurated.(L)0.9cm x (W)0.8cm. An area of non-blanchable erythema without induration/fluctuance medial L elbow. DTPI sacrococcygeal area. base of wound indurated -purple with surrounding red tinged borders. (L)1cm x (W)1cm. DTPI L buttocks. base of wound maroon,indurated with irregular shaped borders that are red . Periwound is pink and blanchable. (L)4.2cm x (W)3.5cm. Non-blanchable erythema that is indurated at base of wound L buttocks (L)4.5cm x (W)5cm.Periwound pink and blanchable. Non-blanchable erythema without induration or fluctuance L heel. Non-blanchable erythema without induration or fluctuance L lateral Malleolus. Non-blanchable erythema without induration /fluctuance R heel. Tx.Plan: Apply Moisture Barrier paste to sacrococcygeal area, R and L buttocks. Apply Cavilon periwound. Cover with Optifoam drsgs. Change every 3 days and prn. Apply Cavilon Skin Barrier to R and L elbows. Cover each site with Optifoam drsg. Change every 7 days and prn. Apply Cavilon Skin Barrier to R and L heels. Cover each heel with Optifoam drsg. Change every 7 days and prn. APM/MEL Mattress overlay. Reposition at lease every 2 hours or as tolerated. Off-load heels with pillow. (7) Pancreatitis Assessment & Plan: likely medication related IV hydration I&O trend labs US ordered Romero Sotomayor Jan 10, 2019 11:09
--- NOTE | 2019-01-10 12:00 | NUR ---
NURSE NOTES: Patient awake and confused. Patient alert to person confused about time, place, and purpose. Patient agitated with high HR of 138. Family at the bedside. Ativan ineffective. Morphine given. Patient calmer but still unable to rest. Patient complaining of pain in her neck and back likely from ETT irritation from extubation this morning. Stridor noted with labored breathing. Patient placed on simple mask. Message left for Dr Larsen. Awaiting call back/orders. Patient given some ice chips but is not alert enough to eat at this time. Will continue to monitor and give her food when she is more alert. Patient has two new IV. Patient now has right arm 22G PIV and left forearm 20G PIV. Both IV's inserted at 1030 this morning. Previous IV's removed. Patient Alvarez patent, asymptomatic and draining clear yellow urine. Patient bed in low position with bed alarm on and call light in reach at this time.
--- NOTE | 2019-01-10 12:10 | NUR ---
NURSE NOTES: Dr Larsen called back and ordered Racemic epi stat now and Solumedrol IV 60mg Q12HR. First dose of solumedrol to be given now. Orders read back and confirmed. Orders placed.
[2019-01-10] MEDS ORDERED: Racemic EPINEPHrine 2.25% 0.5ml HHN SCH (12:15)
[2019-01-10] MEDS ORDERED: Thiamine 100mg tab ORAL SCH (12:30)
[2019-01-10] MEDS: Solu-MEDROL 125mg Inj IVP SCH ×2 (12:42→21:16)
[2019-01-10] MEDS: chlordiazePOXIDE 25mg Cap ORAL SCH ×4 (12:42→22:16)
--- NOTE | 2019-01-10 12:43 | General Progress Note ---
Assessment/Plan Problem List: (1) Anemia ICD Codes: D64.9 - Anemia, unspecified SNOMED: 541531192 (2) Pancreatitis ICD Codes: K85.90 - Acute pancreatitis without necrosis or infection, unspecified SNOMED: 71710195 (3) Altered mental status, unspecified ICD Codes: R41.82 - Altered mental status, unspecified SNOMED: 448729781 (4) Lactic acid acidosis ICD Codes: E87.2 - Acidosis SNOMED: 67511279 (5) Respiratory failure ICD Codes: J96.90 - Respiratory failure, unspecified, unspecified whether with hypoxia or hypercapnia SNOMED: 405788112, 809825721 (6) Drug overdose ICD Codes: T50.901A - Poisoning by unspecified drugs, medicaments and biological substances, accidental (unintentional), initial encounter SNOMED: 74605793 (7) Leukocytosis ICD Codes: D72.829 - Elevated white blood cell count, unspecified SNOMED: 391318375, 913483909 Assessment/Plan: npo fu labs consider abd us anemia work up banana bag Subjective ROS Limited/Unobtainable: No Allergies: Coded Allergies: UNABLE TO ASSESS (Unverified , 01/08/19) Objective Last 24 Hour Vital Signs Date Time Temp Pulse Resp B/P (MAP) Pulse Ox O2 Delivery O2 Flow Rate FiO2 01/10/19 12:36 128 24 98 Simple Mask 10.0 01/10/19 11:00 146 29 142/69 (93) 94 01/10/19 10:00 137 23 146/88 (107) 90 01/10/19 09:17 91 Nasal Cannula 2.0 28 01/10/19 09:15 Nasal Cannula 2.0 28 01/10/19 09:00 128 22 116/89 (98) 96 01/10/19 08:32 100 20 30 01/10/19 08:00 Mechanical Ventilator 01/10/19 08:00 100 01/10/19 08:00 30 01/10/19 08:00 98.5 101 21 115/73 (87) 98 01/10/19 07:00 98.5 102 22 113/72 (86) 97 01/10/19 06:55 101 23 30 01/10/19 06:00 101 22 115/71 (86) 97 01/10/19 05:05 104 21 40 01/10/19 05:00 104 20 111/70 (84) 96 01/10/19 04:00 98.9 112 19 117/69 (85) 98 01/10/19 04:00 Mechanical Ventilator 01/10/19 04:00 40 01/10/19 04:00 114 01/10/19 03:00 120 19 111/67 (82) 95 01/10/19 02:40 134 22 40 01/10/19 02:00 108 22 115/75 (88) 100 01/10/19 01:00 113 20 117/76 (90) 99 01/10/19 00:40 111 21 30 30 01/10/19 00:00 98.9 111 20 118/75 (89) 99 01/10/19 00:00 Mechanical Ventilator 01/10/19 00:00 30 01/10/19 00:00 111 01/09/19 23:23 111 20 30 30 01/09/19 23:00 111 20 116/72 (87) 99 01/09/19 22:00 112 20 117/73 (88) 100 01/09/19 21:00 118 22 118/72 (87) 99 01/09/19 20:44 116 22 30 30 01/09/19 20:00 30 01/09/19 20:00 116 01/09/19 20:00 Mechanical Ventilator 01/09/19 20:00 98.5 115 23 114/75 (88) 100 01/09/19 19:02 117 23 30 30 01/09/19 19:00 118 24 95/56 (69) 100 01/09/19 18:00 120 24 108/67 (81) 100 01/09/19 17:00 121 26 106/65 (79) 99 01/09/19 16:34 121 23 30 01/09/19 16:26 122 01/09/19 16:00 30 01/09/19 16:00 98.8 122 25 107/65 (79) 98 01/09/19 16:00 Mechanical Ventilator 01/09/19 15:00 122 26 30 01/09/19 15:00 122 26 112/66 (81) 98 01/09/19 14:00 119 26 105/69 (81) 99 01/09/19 13:00 119 24 103/56 (72) 99 Intake and Output 01/09/19 01/10/19 19:00 07:00 Intake Total 1992.5 ml 1622.500 ml Output Total 840 ml 1130 ml Balance 1152.5 ml 492.500 ml Intake Oral 0 ml IV Total 1792.5 ml 1622.500 ml Other 200 ml Output Urine Total 840 ml 1130 ml Laboratory Tests 01/09/19 18:55: Lactic Acid Level 1.40 01/10/19 03:55: Lactic Acid Level 0.70, White Blood Count 18.6H, Red Blood Count 3.04L, Hemoglobin 9.3L, Hematocrit 28.9L, Mean Corpuscular Volume 95, Mean Corpuscular Hemoglobin 30.7, Mean Corpuscular Hemoglobin Concent 32.4, Red Cell Distribution Width 13.4, Platelet Count 175, Mean Platelet Volume 6.4L, Neutrophils (%) (Auto) , Lymphocytes (%) (Auto) , Monocytes (%) (Auto) , Eosinophils (%) (Auto) , Basophils (%) (Auto) , Differential Total Cells Counted 100, Neutrophils % (Manual) 85H, Lymphocytes % (Manual) 6L, Monocytes % (Manual) 7, Eosinophils % (Manual) 0, Basophils % (Manual) 0, Band Neutrophils 2 , Platelet Estimate Adequate, Platelet Morphology Normal, Hypochromasia 2+, Erythrocyte Sedimentation Rate 74H, Prothrombin Time 10.2, Prothromb Time International Ratio 1.0, Activated Partial Thromboplast Time 36H, Sodium Level 142, Potassium Level 3.2L, Chloride Level 114H, Carbon Dioxide Level 19L, Anion Gap 9, Blood Urea Nitrogen 11, Creatinine 0.7, Estimat Glomerular Filtration Rate > 60, Glucose Level 97, Calcium Level 7.2L, Total Bilirubin 0.4, Aspartate Amino Transf (AST/SGOT) 27, Alanine Aminotransferase (ALT/SGPT) 11L, Alkaline Phosphatase 61, C-Reactive Protein, Quantitative 42.2H, Total Protein 5.4L, Albumin 2.0L, Globulin 3.4, Albumin/Globulin Ratio 0.6L, Amylase Level 844*H, Lipase 446H 01/10/19 05:19: Arterial Blood pH 7.351, Arterial Blood Partial Pressure CO2 28.6L, Arterial Blood Partial Pressure O2 82.4, Arterial Blood HCO3 15.5*L, Arterial Blood Oxygen Saturation 94.8L, Arterial Blood Base Excess -9L, Chriss Test N/a Height (Feet): 5 Height (Inches): 4.00 Weight (Pounds): 117 General Appearance: lethargic EENT: normal ENT inspection Neck: supple Cardiovascular: tachycardia Respiratory/Chest: decreased breath sounds Abdomen: normal bowel sounds, non tender, no organomegaly Extremities: non-tender Eleazar Tristan MD Jan 10, 2019 12:43
--- NOTE | 2019-01-10 13:03 | NUR ---
RESPIRATORY NOTE: nebulized Racemic Epi 0.5ml given to pt and set up on CA 40%. RN aware.
--- NOTE | 2019-01-10 14:00 | NUR ---
NURSE NOTES: Patient restless. Family no longer at the bedside. Patient still confused to time, place, and purpose. Patient blood pressure 122/78, HR 111, SpO2 100% on aerosol mask at 40% FiO2/10L, and RR 21. Will continue to monitor.
[2019-01-10] MEDS ORDERED: NS 275ml ONE (14:12)
--- NOTE | 2019-01-10 14:37 | Diagnostic Imaging Report ---
Indication: Shortness of breath Technique: One view of the chest Comparison: 01/08/2019 Findings: There is interstitial airspace disease in the right lung, particularly in the lower lung. There is probably some pleural fluid on the right. These findings are new since the previous study. Left lung and pleural space are clear. Interim removal of endotracheal tube. Impression: Interval development of right mid and lower lung infiltrates, likely pneumonia, overt 2 days Interim development of small right pleural effusion Interim endotracheal tube removal
--- NOTE | 2019-01-10 14:44 | Diagnostic Imaging Report ---
Indication: Abdominal pain, abnormal amylase and lipase Technique: Tineo-scale and duplex images of the upper abdomen were obtained. Doppler interrogation of the portal and hepatic veins. Comparison: none Findings: Gallbladder demonstrates wall thickening, gallbladder wall thickness 7 mm. There is associated gallbladder wall edema. No gallstones. Sonographic Barrow's sign is negative. Common bile duct measures 4 mm in diameter. No intrahepatic biliary ductal dilatation. Liver demonstrates normal echogenicity, no focal abnormality. Portal vein and hepatic veins are patent. Pancreas is unremarkable. Spleen is unremarkable. Left kidney measures 11.3 cm in length. Right kidney measures 11.4 cm length. Both kidneys demonstrate normal echogenicity. There is no hydronephrosis. No focal abnormality . Non-aneurysmal abdominal aorta . Incidentally noted is a small right pleural effusion Impression: No gallstones demonstrated. However, there is gallbladder wall thickening. Possible etiologies are reactive thickening from adjacent hepatic inflammation, edema from systemic causes. Acalculus acute cholecystitis or acute cholecystitis from a sonographically occult stone also possibilities, and hepatobiliary nuclear scan could be considered if there is high clinical suspicion for such Small right pleural effusion.
[2019-01-10] MEDS ORDERED: Folic Acid 1 MG, Magnesium Sulfate 2,000 MG, Multivitamin - 12 Injection 10 ML in Sodiu... IV SCH (15:00)
[2019-01-10] MEDS ORDERED: Thiamine 100mg in D5W 55ml IVPB SCH (15:00)
--- NOTE | 2019-01-10 15:07 | NUR ---
CASE MANAGEMENT:REVIEW 01/10/19 SI: DRUG OVERDOSE. RESPIRATORY FAILURE 98.7 146 29 147/88 93% ON 10L VIA MASK WBC+18.6 H/H-9.3/28.9 K-3.2 CA-7.2 CRP+42.2 AMYLASE+844 IS: IV BANANA BAG@125/HR Q24 IV THIAMINE Q24 IV ZOSYN Q8HRS IV SOLUMEDROL Q12 IV PROTONIX QD LIBRIUM PO TID HEPARIN SQ Q12 IVF@100/HR : ICU STATUS DCP: PATIENT IS FROM HOME PLAN: DC RESTRAINTS
--- NOTE | 2019-01-10 15:14 | NUR ---
*-* INSURANCE *-* ALL CLINICALS AND REVIEWS HAVE BEEN FAXED TO: [facility] AUTH#[id number] FAX ALL CLINICALS TO: [phone]
--- NOTE | 2019-01-10 16:00 | NUR ---
NURSE NOTES: Patient sleeping at this time. When awake, patient alert to name and confused to person, place, and time. Patient showing no sign of acute distress. Patient was on 40% FiO2 aerosol mask on 10L. Patient removed mask before falling asleep. Her oxygen saturation at this time is 99% on room air. Stridor not audible at this time. Patient HR 99 and sinus rhythm, RR 12, blood pressure 135/92, and temp 98.6. Patient receiving banana bag and thiamine and zosyn at this time. Patient [place] still patent and draining at this time. Patient bed in low position with bed alarm on and call light in reach at this time.
--- NOTE | 2019-01-10 18:03 | NUR ---
NURSE NOTES: Unable to give Librium at this time. Patient too sedated. Patient arousable to name and light shaking but does not follow commands. Patient unable to swallow medication at this time. Addendum: 01/10/19 at 1806 by Shari Perez RN Left message for Dr Perdomo regarding patient's current level of sedation.
--- NOTE | 2019-01-10 19:15 | NUR ---
HAND-OFF: Report given to TONY Montemayor. Patient vital signs stable at this time. Patient showing no sign of acute distress. Patient sleeping at this time. Awaiting call back from Dr Perdomo. Endorsed to follow up. Addendum: 01/10/19 at 1946 by Shari Perez RN Dr Perdomo returned phone call. Librium order changed to 25mg TID PO with parameter to hold if patient sedated/sleeping. Order read back. Order placed.
--- NOTE | 2019-01-10 19:30 | NUR ---
NURSE NOTES: Received pt in no acute distress. Sleeping at this time with HOB elevated. Afebrile, BP stable. On 35% aerosol cool mist, sats 97-98%. NSR on the monitor. PIV sites on right and left forearms intact. IV with Folate and MVI infuses at 125ml/h. Alvarez cath patent draining good amt of clear yellow urine. Bedrails padded, seizure precautions and fall precautions in place. Will continue to monitor LOC and administer prn meds for anxiety per [facility] protocol.
[2019-01-10] MEDS ORDERED: chlordiazePOXIDE 25mg Cap ORAL SCH (22:00)
--- NOTE | 2019-01-10 22:00 | NUR ---
NURSE NOTES: Awake and anxious. Tearful, irrational. Reoriented to surroundings. Pt thirsty and constantly drinking water. Pt having stridor but not short of breath. Wants some cough syrup. Called Dr Allison and orders received for Racemic epi breathing tx q 4h prn stridor.
--- NOTE | 2019-01-10 22:30 | NUR ---
NURSE NOTES: Remains anxious and agitated. Tearful, irrational. Wants to get out of the hospital. Tremors noted. Ativan 2 mg IVP given.
[2019-01-10] MEDS: LORazepam Inj 2mg/ml 1ml IV PRN (22:40)
[2019-01-10] MEDS ORDERED: Racemic EPINEPHrine 2.25% 0.5ml HHN PRN (22:45)
[2019-01-11] VITALS (16 sets, daily range): BP systolic 122–160; BP diastolic 79–129
--- NOTE | 2019-01-11 | NUR ---
NURSE NOTES: Still awake and very anxious, tearful at times. Constantly thirsty. Asked for snacks, jello given well tolerated. No more stridor but coughing non productively at times. Refuses to wear the O2. Afebrile. Reminded to stay on bed.
[2019-01-11] MEDS: Dexamethasone 4mg/ml vial IVP SCH ×4 (00:11→17:39)
--- NOTE | 2019-01-11 01:30 | NUR ---
NURSE NOTES: Microbiology lab called and reports +VRE rectum. Placed on contact precautions.
[2019-01-11] MEDS: LORazepam Inj 2mg/ml 1ml IV PRN ×4 (02:59→20:11)
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
--- NOTE | 2019-01-11 03:00 | Consultation ---
DATE OF CONSULTATION: 01/10/2019 NOTE: POOR AUDIO. INFECTIOUS DISEASE CONSULT This consult is for coverage of Dr. Gustafson. CONSULTING PHYSICIAN: Adam Frausto M.D. PRIMARY ATTENDING: Justus Larsen M.D. REASON FOR CONSULT: Leukocytosis and UTI. HISTORY OF PRESENT ILLNESS: This is a 33-year-old white female admitted on 01/08/2019 from home with a history of depression and overdose with Flexeril unknown amount. Also took Seroquel 100 mg entire bottle supply for 3 months. She thinks that her friend, she wanted to kill herself. In hospital, she was found to her of altered mental status, lactic acidosis, leukocytosis.At time of admission she was tachycardic with heart rate of 125, had respiratory rate of 26. Possibly intubated in the ER. Today, just extubated. She is started empirically on vancomycin and Zosyn. PAST MEDICAL HISTORY: Has history of depression and eating disorder. She has a history of alcohol abuse and drug abuse, in and out drud rehabilitation since age of 18. ALLERGIES: No known drug allergies. MEDICATIONS: Getting Zosyn, Protonix, potassium chloride, vancomycin, heparin, lorazepam,. SOCIAL HISTORY: Single. No child. Lives alone. Parents live in another state. Nonsmoker, but history of drug or alcohol abuse. REVIEW OF SYSTEMS: limited, has shortness of breath and back pain. PHYSICAL EXAMINATION: VITAL SIGNS: Temperature 98.5, pulse 100, blood pressure 115/73. GENERAL APPEARANCE: Seems to be thin. HEAD AND NECK: Has dry mouth. HEART: Tachycardiac. LUNGS: Rales and rhonchi bilaterally. ABDOMEN: Soft, nontender. EXTREMITIES: No edema. SKIN: Has deep tissue injury. NEUROLOGIC: Awake, alert, responsive. LABORATORY AND DIAGNOSTIC DATA: Sodium 142, potassium 3.2, BUN 11, creatinine 0.7, glucose 97. Lactic acid 2.4. Amylase is 844. {ipase is 443. Albumin is 2. Urine tox was positive for benzodiazepine. Urine showed wbc too numerous to count, leukocyte esterase 3+. Urine culture gram-negative rods. Blood culture negative. IMPRESSION: 1. UTI. The patient seems to have systemic inflammatory response likely due to drug intoxication. 2. Overdose with suicidal attempt. 3. Lactic acidosis that is improving. 4. Has major depression, 5. acute respiratory failure that is resolving, 6, Deep tissue injury in multiple sites. 7. Pancreatitis RECOMMENDATION: Continue Zosyn. Discontinue IV vancomycin. We will follow up the cultures. At the end of my exam, I thank Dr. Larsen for involving me in the care of this patient. Adam Frausto M.D. DR: TAMEKA JOB#: [id number] CC: UBALDO
[2019-01-11] MEDS ORDERED: Morphine Sulfate 2mg/ml Inj(IV/IM USE ONLY) IVP PRN ×2 (03:30→03:38)
--- NOTE | 2019-01-11 03:30 | NUR ---
NURSE NOTES: Called Dr Allison; re pt extremely restless and agitated. Morphine 1mg IVP q2hr PRN ordered.
[2019-01-11] MEDS ORDERED: Morphine Sulfate 2mg/ml Inj(IV/IM USE ONLY) ONE (03:44)
--- NOTE | 2019-01-11 03:46 | NUR ---
NURSE NOTES: Morphine sulfate 1mg IV prepared to give to pt when it was accidentally dropped and broke. Removed another dose from [facility]ies
--- NOTE | 2019-01-11 04:00 | NUR ---
NURSE NOTES: Found pt trying to get out of bed and got combative and angry when asked to lie down and stay on bed. Bilat soft wrist restraints reordered and applied.
[2019-01-11 04:56] LABS: HEMATOCRIT 31.8 % (37.0-47.0); HEMOGLOBIN 10.3 G/DL (12.0-16.0); MEAN CORPUSCULAR VOLUME 95 FL (80-99); PLATELET COUNT 200 K/UL (150-450); RED BLOOD COUNT 3.34 M/UL (4.20-5.40); RED CELL DISTRIBUTION WIDTH 13.6 % (11.6-14.8); WHITE BLOOD COUNT 13.4 K/UL (4.8-10.8)
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
[2019-01-11 05:24] LABS: ALANINE AMINOTRANSFERASE 18 U/L (12-78); ALBUMIN 2.3 G/DL (3.4-5.0); ALBUMIN/GLOBULIN RATIO 0.5 (1.0-2.7); ALKALINE PHOSPHATASE 71 U/L (46-116); AMYLASE 282 U/L (25-115); ANION GAP 14 mmol/L (5-15); ASPARTATE AMINO TRANSFERASE 29 U/L (15-37); BILIRUBIN,TOTAL 0.4 MG/DL (0.2-1.0); BLOOD UREA NITROGEN 7 mg/dL (7-18); CALCIUM 7.4 MG/DL (8.5-10.1); CARBON DIOXIDE 17 MMOL/L (21-32); CHLORIDE 109 MMOL/L (98-107); CHOLESTEROL 173 MG/DL (< 200); CREATININE 0.6 MG/DL (0.55-1.30); HDL CHOLESTEROL 48 MG/DL (40-60); POTASSIUM 3.3 MMOL/L (3.5-5.1); SODIUM 140 MMOL/L (136-145); TRIGLYCERIDES 113 MG/DL (30-150)
[2019-01-11 05:34] LABS: % IRON SATURATION 6 % (15-50); IRON 15 ug/dL (50-175); TOTAL IRON BINDING CAPACITY 240 ug/dL (250-450)
--- NOTE | 2019-01-11 05:34 | NUR ---
NURSE NOTES: Awake and continues to be agitated, restless and hallucinating. Uncooperative and belligerent when asked to lie down and stay on bed. Attempting to get out of restraints by biting it. Percy soft wrist restraints maintained, bed armed, locked and in low position. Will continue to watch pt and provide therapeutic communication
[2019-01-11] MEDS: Piperacillin/Tazobactam 3.375 GM in NS 110 ML IVPB SCH ×3 (05:46→23:10)
[2019-01-11] MEDS: chlordiazePOXIDE 25mg Cap ORAL SCH ×2 (05:46→23:10)
--- NOTE | 2019-01-11 07:10 | NUR ---
NURSE NOTES: Received pt from TONY Montemayor. Patient is awake, very confused, combative, talkative. Alert to self only. Bilateral soft wrist restraints applied for safety and impulsiveness. Pt pulling on restraints, trying to get out of bed. Some discoloration noted on left and right arm. RA, oxygen saturation is 100%, RR 16. No respiratory distress noted, no stridor. Breathing even and unlabored. Breath sounds are clear. IV on RFA 22G and LFA 20G running NS@100ml/hr. FC draining more than 200ml/hr. Bed locked, alarmed and in lowest position. Frequent reassurance and distraction required. Will continue to monitor.
--- NOTE | 2019-01-11 07:24 | NUR ---
HAND-OFF: Report given to Shari Ya RN.
[2019-01-11] MEDS: Pantoprazole Inj IVP SCH (08:47)
[2019-01-11] MEDS: Heparin 5000 units/ml inj SUBQ SCH ×2 (08:48→20:54)
--- NOTE | 2019-01-11 09:12 | NUR ---
NURSE NOTES: Complete linen and gown change provided. Patient trying to get out of bed, swinging her legs off the bed, reinforced safety and education but patient is uncooperative and combative; crying. Ativan given as per ordered. Ineffective. Frequent reality orientation provided. Ineffective. Will notify Dr. Perdomo. Patient is medically cleared to transfer to [facility] per Dr. Allison, need clearance from Dr. Perdomo.
--- NOTE | 2019-01-11 09:16 | NUR ---
CASE MANAGEMENT:REVIEW 01/11/19 SI: DRUG OVERDOSE. RESPIRATORY FAILURE 98.0 92 17 154/129 100% ON RA WBC+13.4 H/H-10.3/31.8 K-3.3 LIPASE+113 AMYLASE+282 IS: IV DECADRON Q6HRS LIBRIUM PO Q8HRS IV BANANA BAG Q24 IV THIAMINE Q24 IV ZOSYN Q8HRS IV ATIVAN Q4HRS PRN IV PROTONIX QD HEPARIN SQ Q12 IVF@100/HR : ICU STATUS DCP: PATIENT IS FROM HOME PLAN: PSYCH CONSULT
--- NOTE | 2019-01-11 09:28 | General Progress Note ---
Assessment/Plan Problem List: (1) Anemia ICD Codes: D64.9 - Anemia, unspecified SNOMED: 765607689 (2) Pancreatitis ICD Codes: K85.90 - Acute pancreatitis without necrosis or infection, unspecified SNOMED: 91004822 (3) Altered mental status, unspecified ICD Codes: R41.82 - Altered mental status, unspecified SNOMED: 233177547 (4) Lactic acid acidosis ICD Codes: E87.2 - Acidosis SNOMED: 76074109 (5) Respiratory failure ICD Codes: J96.90 - Respiratory failure, unspecified, unspecified whether with hypoxia or hypercapnia SNOMED: 287617224, 219710688 (6) Drug overdose ICD Codes: T50.901A - Poisoning by unspecified drugs, medicaments and biological substances, accidental (unintentional), initial encounter SNOMED: 52297062 (7) Leukocytosis ICD Codes: D72.829 - Elevated white blood cell count, unspecified SNOMED: 307753607, 408333361 Assessment/Plan: advance to full liquid iv iron fu labs banana bag respiratory care fu psych Subjective ROS Limited/Unobtainable: Yes Allergies: Coded Allergies: UNABLE TO ASSESS (Unverified , 01/08/19) Objective Last 24 Hour Vital Signs Date Time Temp Pulse Resp B/P (MAP) Pulse Ox O2 Delivery O2 Flow Rate FiO2 01/11/19 06:00 98.0 92 17 154/129 (137) 100 01/11/19 05:00 84 18 159/103 (121) 100 01/11/19 04:00 Room Air 01/11/19 04:00 91 19 134/119 (124) 100 01/11/19 04:00 87 01/11/19 03:00 81 22 155/108 (124) 100 01/11/19 02:00 84 17 142/100 (114) 100 01/11/19 01:00 94 24 134/98 (110) 99 01/11/19 00:00 Room Air 01/11/19 00:00 94 01/11/19 00:00 98.8 99 22 122/85 (97) 99 01/10/19 23:00 120 23 115/66 (82) 98 01/10/19 22:58 110 22 100 Room Air 21 01/10/19 22:50 111 20 100 Room Air 21 01/10/19 22:00 97 24 111/71 (84) 100 01/10/19 21:00 94 22 127/82 (97) 100 01/10/19 20:00 96 01/10/19 20:00 Simple Mask 10.0 01/10/19 20:00 98.9 94 22 127/82 (97) 100 01/10/19 19:59 100 Room Air 21 01/10/19 19:00 95 21 133/93 (106) 100 01/10/19 18:00 94 19 133/90 (104) 100 01/10/19 17:00 99 20 135/91 (106) 99 01/10/19 16:00 10.0 40 01/10/19 16:00 107 01/10/19 16:00 Simple Mask 10.0 01/10/19 16:00 98.6 103 23 135/92 (106) 99 01/10/19 15:00 111 22 122/87 (99) 100 01/10/19 14:00 131 22 122/78 (93) 98 01/10/19 13:00 145 22 125/71 (89) 99 01/10/19 13:00 146 24 96 Cool Aerosol 12.0 40 01/10/19 12:36 128 24 98 Simple Mask 10.0 01/10/19 12:00 98.7 144 24 147/88 (107) 93 01/10/19 12:00 130 01/10/19 12:00 10.0 40 01/10/19 12:00 Simple Mask 10.0 01/10/19 11:00 146 29 142/69 (93) 94 01/10/19 10:00 137 23 146/88 (107) 90 Intake and Output 01/10/19 01/11/19 19:00 07:00 Intake Total 772.25 ml 4897.95 ml Output Total 1505 ml 3175 ml Balance -732.75 ml 1722.95 ml Intake Oral 50 ml 3480 ml IV Total 722.25 ml 1417.95 ml Output Urine Total 1505 ml 3175 ml Laboratory Tests 01/11/19 03:45: White Blood Count 13.4H, Red Blood Count 3.34L, Hemoglobin 10.3L, Hematocrit 31.8L, Mean Corpuscular Volume 95, Mean Corpuscular Hemoglobin 30.9, Mean Corpuscular Hemoglobin Concent 32.4, Red Cell Distribution Width 13.6, Platelet Count 200, Mean Platelet Volume 6.5, Neutrophils (%) (Auto) , Lymphocytes (%) ( Auto) , Monocytes (%) (Auto) , Eosinophils (%) (Auto) , Basophils (%) (Auto) , Sodium Level 140, Potassium Level 3.3L, Chloride Level 109H, Carbon Dioxide Level 17L, Anion Gap 14, Blood Urea Nitrogen 7, Creatinine 0.6, Estimat Glomerular Filtration Rate > 60, Glucose Level 141H, Calcium Level 7.4L, Iron Level 15L, Total Iron Binding Capacity 240L, Percent Iron Saturation 6L, Unsaturated Iron Binding 225, Total Bilirubin 0.4, Aspartate Amino Transf (AST/ SGOT) 29, Alanine Aminotransferase (ALT/SGPT) 18, Alkaline Phosphatase 71, Total Protein 6.5, Albumin 2.3L, Globulin 4.2, Albumin/Globulin Ratio 0.5L, Triglycerides Level 113, Cholesterol Level 173, LDL Cholesterol 77, HDL Cholesterol 48, Cholesterol/HDL Ratio 3.6, Amylase Level 282H, Lipase 1113H Height (Feet): 5 Height (Inches): 4.00 Weight (Pounds): 112 General Appearance: alert EENT: normal ENT inspection Neck: supple Cardiovascular: normal rate Respiratory/Chest: lungs clear Abdomen: normal bowel sounds, non tender, soft Extremities: non-tender Eleazar Tristan MD Jan 11, 2019 09:28
--- NOTE | 2019-01-11 10:03 | Pulmonolgy Critical Care Note ---
Critical Care - Asmt/Plan Assessment/Plan: Pulmonary CCM Progress Note Assessment/Plan drug overdose respiratory failure acute leukocytosis anemia metabolic acidosis severe protein calorie malnutrition pancreatitis PLAN support as able IV hydration DVT prophylaxis ID eval vent support try to wean monitor HH surgical follow up noted critical medications/laboratory data/nursing notes/ICU care reviewed in detail note reviewed and edited care discussed with RN and RT ICU time spent 40 minutes Critical Care - Subjective Interval Events: icu care reviewed on vent events noted ROS Limited/Unobtainable: Yes Condition: critical EKG Rhythm: Sinus Rhythm I&O: Intake and Output 01/09/19 01/10/19 19:00 07:00 Intake Total 1992.5 ml 1622.500 ml Output Total 840 ml 1130 ml Balance 1152.5 ml 492.500 ml Intake Oral 0 ml IV Total 1792.5 ml 1622.500 ml Other 200 ml Output Urine Total 840 ml 1130 ml Critical Care - Objective Vital Signs Noted Labs Test 01/08/19 21:44 01/08/19 21:45 01/08/19 22:30 01/08/19 23:15 Arterial Blood pH 7.443 (7.350-7.450) Arterial Blood Partial Pressure CO2 32.6 mmHg (35.0-45.0) Arterial Blood Partial Pressure O2 68.3 mmHg (75.0-100.0) Arterial Blood HCO3 21.8 mmol/L (22.0-26.0) Arterial Blood Oxygen Saturation 92.7 % (95-100) Arterial Blood Base Excess -1.6 (-2-2) Chriss Test Positive Venous Blood pH Venous Blood Partial Pressure CO2 Venous Blood Partial Pressure O2 Venous Blood HCO3 Venous Blood Total Carbon Dioxide Venous Bld O2 Saturation (Measured) Venous Blood Oxygen Saturation Venous Blood Base Excess Methemoglobin 0.6 Sodium (Blood Gas) White Blood Count 26.1 K/UL (4.8-10.8) Red Blood Count 4.05 M/UL (4.20-5.40) Hemoglobin 12.4 G/DL (12.0-16.0) Hematocrit 35.9 % (37.0-47.0) Mean Corpuscular Volume 89 FL (80-99) Mean Corpuscular Hemoglobin 30.6 PG (27.0-31.0) Mean Corpuscular Hemoglobin Concent 34.5 G/DL (32.0-36.0) Red Cell Distribution Width 12.4 % (11.6-14.8) Platelet Count 275 K/UL (150-450) Mean Platelet Volume 6.3 FL (6.5-10.1) Neutrophils (%) (Auto) % (45.0-75.0) Lymphocytes (%) (Auto) % (20.0-45.0) Monocytes (%) (Auto) % (1.0-10.0) Eosinophils (%) (Auto) % (0.0-3.0) Basophils (%) (Auto) % (0.0-2.0) Differential Total Cells Counted 100 Neutrophils % (Manual) 62 % (45-75) Lymphocytes % (Manual) 6 % (20-45) Monocytes % (Manual) 5 % (1-10) Eosinophils % (Manual) 0 % (0-3) Basophils % (Manual) 0 % (0-2) Band Neutrophils 27 % (0-8) Platelet Estimate Adequate Platelet Morphology Normal Red Blood Cell Morphology Normal Prothrombin Time 10.7 SEC (9.30-11.50) Prothromb Time International Ratio 1.0 (0.9-1.1) Activated Partial Thromboplast Time 25 SEC (23-33) Sodium Level 143 MMOL/L (136-145) Potassium Level 3.3 MMOL/L (3.5-5.1) Chloride Level 106 MMOL/L (98-107) Carbon Dioxide Level 23 MMOL/L (21-32) Anion Gap 14 mmol/L (5-15) Blood Urea Nitrogen 19 mg/dL (7-18) Creatinine 1.5 MG/DL (0.55-1.30) Estimat Glomerular Filtration Rate 40.0 mL/min (>60) Glucose Level 104 MG/DL (74-106) Lactic Acid Level 5.50 mmol/L (0.4-2.0) 3.60 mmol/L (0.66-2.22) Calcium Level 8.2 MG/DL (8.5-10.1) Phosphorus Level 3.9 MG/DL (2.5-4.9) Magnesium Level 1.2 MG/DL (1.8-2.4) Total Bilirubin 0.6 MG/DL (0.2-1.0) Aspartate Amino Transf (AST/SGOT) 21 U/L (15-37) Alanine Aminotransferase (ALT/SGPT) 16 U/L (12-78) Alkaline Phosphatase 61 U/L (46-116) Total Creatine Kinase 251 U/L (26-308) Creatine Kinase MB 2.4 NG/ML (0.0-3.6) Creatine Kinase MB Relative Index 0.9 Troponin I 0.007 ng/mL (0.000-0.056) Pro-B-Type Natriuretic Peptide 74 pg/mL (0-125) Total Protein 6.2 G/DL (6.4-8.2) Albumin 2.9 G/DL (3.4-5.0) Globulin 3.3 g/dL Albumin/Globulin Ratio 0.9 (1.0-2.7) Triglycerides Level 37 MG/DL (30-150) Amylase Level 1149 U/L (25-115) Lipase 112 U/L (73-393) Human Chorionic Gonadotropin, Quant 1 mIU/mL (1-6) Salicylates Level 0.2 ug/mL (2.8-20) Acetaminophen Level < 2 MCG/ML (10-30) Serum Alcohol < 3 mg/dL Urine Color Pale yellow Urine Appearance Cloudy Urine pH 6 (4.5-8.0) Urine Specific Siler 1.015 (1.005-1.035) Urine Protein 2+ (NEGATIVE) Urine Glucose (UA) Negative (NEGATIVE) Urine Ketones Negative (NEGATIVE) Urine Blood 1+ (NEGATIVE) Urine Nitrite Negative (NEGATIVE) Urine Bilirubin Negative (NEGATIVE) Urine Urobilinogen Normal MG/DL (0.0-1.0) Urine Leukocyte Esterase 3+ (NEGATIVE) Urine RBC 2-4 /HPF (0 - 2) Urine WBC Tntc /HPF (0 - 2) Urine Squamous Epithelial Cells None /LPF (NONE/OCC) Urine Bacteria Many /HPF (NONE) Urine HCG, Qualitative Negative (NEGATIVE) Urine Opiates Screen Negative (NEGATIVE) Urine Barbiturates Screen Negative (NEGATIVE) Phencyclidine (PCP) Screen Negative (NEGATIVE) Urine Amphetamines Screen Negative (NEGATIVE) Urine Benzodiazepines Screen Positive (NEGATIVE) Urine Cocaine Screen Negative (NEGATIVE) Urine Marijuana (THC) Screen Negative (NEGATIVE) Test 01/09/19 03:50 01/09/19 05:40 01/09/19 07:37 01/09/19 12:00 White Blood Count 19.8 K/UL (4.8-10.8) Red Blood Count 3.54 M/UL (4.20-5.40) Hemoglobin 11.0 G/DL (12.0-16.0) Hematocrit 33.0 % (37.0-47.0) Mean Corpuscular Volume 93 FL (80-99) Mean Corpuscular Hemoglobin 31.0 PG (27.0-31.0) Mean Corpuscular Hemoglobin Concent 33.3 G/DL (32.0-36.0) Red Cell Distribution Width 13.2 % (11.6-14.8) Platelet Count 231 K/UL (150-450) Mean Platelet Volume 6.7 FL (6.5-10.1) Neutrophils (%) (Auto) % (45.0-75.0) Lymphocytes (%) (Auto) % (20.0-45.0) Monocytes (%) (Auto) % (1.0-10.0) Eosinophils (%) (Auto) % (0.0-3.0) Basophils (%) (Auto) % (0.0-2.0) Differential Total Cells Counted 100 Neutrophils % (Manual) 82 % (45-75) Lymphocytes % (Manual) 7 % (20-45) Monocytes % (Manual) 1 % (1-10) Eosinophils % (Manual) 0 % (0-3) Basophils % (Manual) 0 % (0-2) Band Neutrophils 10 % (0-8) Platelet Estimate Adequate Platelet Morphology Normal Hypochromasia 1+ Anisocytosis 1+ Sodium Level 144 MMOL/L (136-145) Potassium Level 3.3 MMOL/L (3.5-5.1) Chloride Level 111 MMOL/L (98-107) Carbon Dioxide Level 24 MMOL/L (21-32) Anion Gap 9 mmol/L (5-15) Blood Urea Nitrogen 16 mg/dL (7-18) Creatinine 1.1 MG/DL (0.55-1.30) Estimat Glomerular Filtration Rate 57.2 mL/min (>60) Glucose Level 100 MG/DL (74-106) Lactic Acid Level 3.20 mmol/L (0.4-2.0) 3.40 mmol/L (0.66-2.22) 2.10 mmol/L (0.4-2.0) Calcium Level 7.2 MG/DL (8.5-10.1) Magnesium Level 1.3 MG/DL (1.8-2.4) Total Bilirubin 0.6 MG/DL (0.2-1.0) Aspartate Amino Transf (AST/SGOT) 22 U/L (15-37) Alanine Aminotransferase (ALT/SGPT) 11 U/L (12-78) Alkaline Phosphatase 49 U/L (46-116) Total Protein 5.6 G/DL (6.4-8.2) Albumin 2.3 G/DL (3.4-5.0) Globulin 3.3 g/dL Albumin/Globulin Ratio 0.7 (1.0-2.7) Arterial Blood pH 7.411 (7.350-7.450) Arterial Blood Partial Pressure CO2 32.1 mmHg (35.0-45.0) Arterial Blood Partial Pressure O2 118.9 mmHg (75.0-100.0) Arterial Blood HCO3 19.9 mmol/L (22.0-26.0) Arterial Blood Oxygen Saturation 97.8 % (95-100) Arterial Blood Base Excess -3.9 (-2-2) Chriss Test Positive Test 01/09/19 18:55 01/10/19 03:55 01/10/19 05:19 Lactic Acid Level 1.40 mmol/L (0.4-2.0) 0.70 mmol/L (0.4-2.0) White Blood Count 18.6 K/UL (4.8-10.8) Red Blood Count 3.04 M/UL (4.20-5.40) Hemoglobin 9.3 G/DL (12.0-16.0) Hematocrit 28.9 % (37.0-47.0) Mean Corpuscular Volume 95 FL (80-99) Mean Corpuscular Hemoglobin 30.7 PG (27.0-31.0) Mean Corpuscular Hemoglobin Concent 32.4 G/DL (32.0-36.0) Red Cell Distribution Width 13.4 % (11.6-14.8) Platelet Count 175 K/UL (150-450) Mean Platelet Volume 6.4 FL (6.5-10.1) Neutrophils (%) (Auto) % (45.0-75.0) Lymphocytes (%) (Auto) % (20.0-45.0) Monocytes (%) (Auto) % (1.0-10.0) Eosinophils (%) (Auto) % (0.0-3.0) Basophils (%) (Auto) % (0.0-2.0) Erythrocyte Sedimentation Rate 74 MM/HR (0-20) Prothrombin Time 10.2 SEC (9.30-11.50) Prothromb Time International Ratio 1.0 (0.9-1.1) Activated Partial Thromboplast Time 36 SEC (23-33) Sodium Level 142 MMOL/L (136-145) Potassium Level 3.2 MMOL/L (3.5-5.1) Chloride Level 114 MMOL/L (98-107) Carbon Dioxide Level 19 MMOL/L (21-32) Anion Gap 9 mmol/L (5-15) Blood Urea Nitrogen 11 mg/dL (7-18) Creatinine 0.7 MG/DL (0.55-1.30) Estimat Glomerular Filtration Rate > 60 mL/min (>60) Glucose Level 97 MG/DL (74-106) Calcium Level 7.2 MG/DL (8.5-10.1) Total Bilirubin 0.4 MG/DL (0.2-1.0) Aspartate Amino Transf (AST/SGOT) 27 U/L (15-37) Alanine Aminotransferase (ALT/SGPT) 11 U/L (12-78) Alkaline Phosphatase 61 U/L (46-116) C-Reactive Protein, Quantitative 42.2 mg/dL (0.00-0.90) Total Protein 5.4 G/DL (6.4-8.2) Albumin 2.0 G/DL (3.4-5.0) Globulin 3.4 g/dL Albumin/Globulin Ratio 0.6 (1.0-2.7) Amylase Level 844 U/L (25-115) Lipase 446 U/L (73-393) Arterial Blood pH 7.351 (7.350-7.450) Arterial Blood Partial Pressure CO2 28.6 mmHg (35.0-45.0) Arterial Blood Partial Pressure O2 82.4 mmHg (75.0-100.0) Arterial Blood HCO3 15.5 mmol/L (22.0-26.0) Arterial Blood Oxygen Saturation 94.8 % (95-100) Arterial Blood Base Excess -9 (-2-2) Chriss Test N/a Objective: WDWN clear breath sounds bilaterally without rhonchi or wheeze [id number] without MRG NABS nontender no HSM no CCE Alert, interactive Critical Care - Objective Last 24 Hour Vital Signs Date Time Temp Pulse Resp B/P (MAP) Pulse Ox O2 Delivery O2 Flow Rate FiO2 01/11/19 08:00 Room Air 01/11/19 06:00 98.0 92 17 154/129 (137) 100 01/11/19 05:00 84 18 159/103 (121) 100 01/11/19 04:00 Room Air 01/11/19 04:00 91 19 134/119 (124) 100 01/11/19 04:00 87 01/11/19 03:00 81 22 155/108 (124) 100 01/11/19 02:00 84 17 142/100 (114) 100 01/11/19 01:00 94 24 134/98 (110) 99 01/11/19 00:00 Room Air 01/11/19 00:00 94 01/11/19 00:00 98.8 99 22 122/85 (97) 99 01/10/19 23:00 120 23 115/66 (82) 98 01/10/19 22:58 110 22 100 Room Air 21 01/10/19 22:50 111 20 100 Room Air 21 01/10/19 22:00 97 24 111/71 (84) 100 01/10/19 21:00 94 22 127/82 (97) 100 01/10/19 20:00 96 01/10/19 20:00 Simple Mask 10.0 01/10/19 20:00 98.9 94 22 127/82 (97) 100 01/10/19 19:59 100 Room Air 21 01/10/19 19:00 95 21 133/93 (106) 100 01/10/19 18:00 94 19 133/90 (104) 100 01/10/19 17:00 99 20 135/91 (106) 99 01/10/19 16:00 10.0 40 01/10/19 16:00 107 01/10/19 16:00 Simple Mask 10.0 01/10/19 16:00 98.6 103 23 135/92 (106) 99 01/10/19 15:00 111 22 122/87 (99) 100 01/10/19 14:00 131 22 122/78 (93) 98 01/10/19 13:00 145 22 125/71 (89) 99 01/10/19 13:00 146 24 96 Cool Aerosol 12.0 40 01/10/19 12:36 128 24 98 Simple Mask 10.0 01/10/19 12:00 98.7 144 24 147/88 (107) 93 01/10/19 12:00 130 01/10/19 12:00 10.0 40 01/10/19 12:00 Simple Mask 10.0 01/10/19 11:00 146 29 142/69 (93) 94 Micro: Microbiology Date/Time Source Procedure Growth Status 01/08/19 23:15 Blood Blood Culture - Preliminary NO GROWTH AFTER 48 HOURS Resulted 01/08/19 23:00 Blood Blood Culture - Preliminary NO GROWTH AFTER 48 HOURS Resulted 01/08/19 22:30 Urine,Clean Catch Urine Culture - Final Klebsiella Pneumoniae Complete 01/08/19 23:30 Rectum - Final NO CARBAPENEM-RESISTANT ENTEROBACTERI... Complete 01/08/19 23:30 Rectum VRE Culture - Final Enterococcus Faecium - Vre Complete Critical Care - Subjective ROS Limited/Unobtainable: No Condition: improving EKG Rhythm: Sinus Rhythm FI02: 21 Vent Support Breath Rate: 20 Vent Support Mode: AC Vent Tidal Volume: 420 Sputum Amount: None PEEP: 5.0 PIP: 21 I&O: Intake and Output 01/10/19 01/11/19 19:00 07:00 Intake Total 772.25 ml 5047.95 ml Output Total 1505 ml 3575 ml Balance -732.75 ml 1472.95 ml Intake Oral 50 ml 3630 ml IV Total 722.25 ml 1417.95 ml Output Urine Total 1505 ml 3575 ml ET-Tube: 7.5 ET Position: 22 Jean Pierre Allison MD Jan 11, 2019 10:03
[2019-01-11] MEDS ORDERED: Tubing IV Secondary IV ONE (10:10)
--- NOTE | 2019-01-11 10:36 | NUR ---
*-* INSURANCE *-* UPDATED CLINICALS AND REVIEWS HAVE BEEN FAXED TO: [facility] AUTH#[id number] FAX ALL CLINICALS TO: [phone]
--- NOTE | 2019-01-11 10:56 | Infectious Diseases Prog Note ---
Assessment/Plan Assessment/Plan antibiotics : zosyn A 1. pneumonia 2. pancreatitis 3. leucocytosis improving 4. drug overdose with suicidal attempt 5. klebsiella UTI P 1. continue zosyn 2. will follow up cultures Subjective ROS Limited/Unobtainable: Yes Allergies: Coded Allergies: UNABLE TO ASSESS (Unverified , 01/08/19) Objective Vital Signs Last 24 Hour Vital Signs Date Time Temp Pulse Resp B/P (MAP) Pulse Ox O2 Delivery O2 Flow Rate FiO2 01/11/19 08:00 Room Air 01/11/19 06:00 98.0 92 17 154/129 (137) 100 01/11/19 05:00 84 18 159/103 (121) 100 01/11/19 04:00 Room Air 01/11/19 04:00 91 19 134/119 (124) 100 01/11/19 04:00 87 01/11/19 03:00 81 22 155/108 (124) 100 01/11/19 02:00 84 17 142/100 (114) 100 01/11/19 01:00 94 24 134/98 (110) 99 01/11/19 00:00 Room Air 01/11/19 00:00 94 01/11/19 00:00 98.8 99 22 122/85 (97) 99 01/10/19 23:00 120 23 115/66 (82) 98 01/10/19 22:58 110 22 100 Room Air 21 01/10/19 22:50 111 20 100 Room Air 21 01/10/19 22:00 97 24 111/71 (84) 100 01/10/19 21:00 94 22 127/82 (97) 100 01/10/19 20:00 96 01/10/19 20:00 Simple Mask 10.0 01/10/19 20:00 98.9 94 22 127/82 (97) 100 01/10/19 19:59 100 Room Air 21 01/10/19 19:00 95 21 133/93 (106) 100 01/10/19 18:00 94 19 133/90 (104) 100 01/10/19 17:00 99 20 135/91 (106) 99 01/10/19 16:00 10.0 40 01/10/19 16:00 107 01/10/19 16:00 Simple Mask 10.0 01/10/19 16:00 98.6 103 23 135/92 (106) 99 01/10/19 15:00 111 22 122/87 (99) 100 01/10/19 14:00 131 22 122/78 (93) 98 01/10/19 13:00 145 22 125/71 (89) 99 01/10/19 13:00 146 24 96 Cool Aerosol 12.0 40 01/10/19 12:36 128 24 98 Simple Mask 10.0 01/10/19 12:00 98.7 144 24 147/88 (107) 93 01/10/19 12:00 130 01/10/19 12:00 10.0 40 01/10/19 12:00 Simple Mask 10.0 01/10/19 11:00 146 29 142/69 (93) 94 Height (Feet): 5 Height (Inches): 4.00 Weight (Pounds): 112 Respiratory/Chest: lungs clear Cardiovascular: normal rate, regular rhythm, no gallop/murmur Abdomen: soft, non tender Extremities: no edema Microbiology Date/Time Source Procedure Growth Status 01/08/19 23:15 Blood Blood Culture - Preliminary NO GROWTH AFTER 48 HOURS Resulted 01/08/19 23:00 Blood Blood Culture - Preliminary NO GROWTH AFTER 48 HOURS Resulted 01/08/19 22:30 Urine,Clean Catch Urine Culture - Final Klebsiella Pneumoniae Complete 01/08/19 23:30 Rectum - Final NO CARBAPENEM-RESISTANT ENTEROBACTERI... Complete 01/08/19 23:30 Rectum VRE Culture - Final Enterococcus Faecium - Vre Complete Laboratory Tests Test 01/11/19 03:45 White Blood Count 13.4 K/UL (4.8-10.8) H Red Blood Count 3.34 M/UL (4.20-5.40) L Hemoglobin 10.3 G/DL (12.0-16.0) L Hematocrit 31.8 % (37.0-47.0) L Mean Corpuscular Volume 95 FL (80-99) Mean Corpuscular Hemoglobin 30.9 PG (27.0-31.0) Mean Corpuscular Hemoglobin Concent 32.4 G/DL (32.0-36.0) Red Cell Distribution Width 13.6 % (11.6-14.8) Platelet Count 200 K/UL (150-450) Mean Platelet Volume 6.5 FL (6.5-10.1) Neutrophils (%) (Auto) % (45.0-75.0) Lymphocytes (%) (Auto) % (20.0-45.0) Monocytes (%) (Auto) % (1.0-10.0) Eosinophils (%) (Auto) % (0.0-3.0) Basophils (%) (Auto) % (0.0-2.0) Sodium Level 140 MMOL/L (136-145) Potassium Level 3.3 MMOL/L (3.5-5.1) L Chloride Level 109 MMOL/L (98-107) H Carbon Dioxide Level 17 MMOL/L (21-32) L Anion Gap 14 mmol/L (5-15) Blood Urea Nitrogen 7 mg/dL (7-18) Creatinine 0.6 MG/DL (0.55-1.30) Estimat Glomerular Filtration Rate > 60 mL/min (>60) Glucose Level 141 MG/DL (74-106) H Calcium Level 7.4 MG/DL (8.5-10.1) L Iron Level 15 ug/dL (50-175) L Total Iron Binding Capacity 240 ug/dL (250-450) L Percent Iron Saturation 6 % (15-50) L Unsaturated Iron Binding 225 ug/dL (112-346) Total Bilirubin 0.4 MG/DL (0.2-1.0) Aspartate Amino Transf (AST/SGOT) 29 U/L (15-37) Alanine Aminotransferase (ALT/SGPT) 18 U/L (12-78) Alkaline Phosphatase 71 U/L (46-116) Total Protein 6.5 G/DL (6.4-8.2) Albumin 2.3 G/DL (3.4-5.0) L Globulin 4.2 g/dL Albumin/Globulin Ratio 0.5 (1.0-2.7) L Triglycerides Level 113 MG/DL (30-150) Cholesterol Level 173 MG/DL (< 200) LDL Cholesterol 77 mg/dL (<100) HDL Cholesterol 48 MG/DL (40-60) Cholesterol/HDL Ratio 3.6 (3.3-4.4) Amylase Level 282 U/L (25-115) H Lipase 1113 U/L (73-393) H Current Medications Medications (Trade) Dose Ordered Sig/Christophe Route PRN Reason Start Time Stop Time Status Last Admin Dose Admin Acetaminophen (Tylenol) 650 mg Q4H PRN ORAL Mild Pain/Temp > 100.5 01/09/19 01:30 02/08/19 01:29 Al Hydroxide/Mg Hydroxide (Mylanta) 30 ml EVERY 4 HOURS PRN ORAL Constipation 01/09/19 01:30 02/08/19 01:29 Chlordiazepoxide (Librium) 25 mg Q8HR ORAL 01/10/19 22:00 01/17/19 21:59 01/11/19 05:46 Dexamethasone Sodium Phosphate (Decadron 4mg/ml vial) 6 mg Q6HR IVP 01/11/19 00:00 02/10/19 00:00 01/11/19 05:46 Folic Acid 1 mg/ Magnesium Sulfate 2000 mg/ Multivitamins 10 ml/Sodium Chloride 1,014.2 ml @ 125 mls/ hr Q24H IV 01/10/19 15:00 02/09/19 14:59 01/10/19 15:40 Heparin Sodium (Porcine) (Heparin 5000 units/ml) 5,000 units EVERY 12 HOURS SUBQ 01/09/19 09:00 02/08/19 08:59 01/11/19 08:48 Iron Sucrose 100 mg/Sodium Chloride 60 ml @ 240 mls/hr BEDTIME IV 01/11/19 21:00 01/15/19 21:14 Lorazepam (Ativan 2mg/ml 1ml) 2 mg Q4H PRN IV For Anxiety 01/10/19 12:30 01/17/19 12:29 01/11/19 08:47 Morphine Sulfate (Morphine Sulfate) 1 mg Q2H PRN IVP Severe Pain (Pain Scale 7-10) 01/11/19 03:38 01/18/19 03:37 01/11/19 03:46 Pantoprazole (Protonix) 40 mg DAILY IVP 01/10/19 09:49 02/09/19 09:48 01/11/19 08:47 Piperacillin Sod/ Tazobactam Sod 3.375 gm/Sodium Chloride 110 ml @ 27.5 mls/hr Q8HR IVPB 01/10/19 14:00 01/17/19 13:59 01/11/19 05:46 Potassium Chloride (K-Dur) 20 meq ONCE ORAL 01/11/19 12:00 01/11/19 13:00 Racepinephrine (S2) 0.5 ml Q4HRT PRN HHN Shortness of Breath 01/10/19 22:45 02/09/19 22:44 01/10/19 22:55 Sodium Chloride 1,000 ml @ 100 mls/hr Q10H IV 01/09/19 01:30 02/08/19 01:29 01/11/19 05:55 Thiamine HCl 100 mg/Dextrose 56 ml @ 112 mls/hr Q24H IVPB 01/10/19 15:00 02/09/19 14:59 01/10/19 15:41 Anita Gustafson MD Jan 11, 2019 10:56
--- NOTE | 2019-01-11 10:58 | NUR ---
RD ASSESSMENT & RECOMMENDATIONS SEE CARE ACTIVITY FOR COMPLETE ASSESSMENT DAILY ESTIMATED NEEDS: Needs based on Pancreatitis, wounds/ 50kg 25-35 kcals/kg 2957-1980 total kcals 1.25-2 g protein/kg 62-100 g total protein 25-30 mL/kg 9465-7797 total fluid mLs NUTRITION DIAGNOSIS: * Increased kcal/prot needs R/T wound healing as evidenced by pt admitted with multiple non-blanchable redness and DTPI wounds, refer to WC eval. * Swallowing difficulty R/T respiratory status as evidenced by s/p OD, orally intubated in ICU, w/ OGT in place, NPO. (INACTIVE) * Decreased fat needs r/t pancreatitis as evidenced by elev amylase (now trending down 282), elev lipase (1113). CURRENT DIET: CLD-> now Full liquid PO DIET RECOMMENDATIONS: Maintain CLD-> advance as able to LOW FAT diet ADDITIONAL RECOMMENDATIONS: * Monitor lytes, replete as needed (K) * Calibrated bedscale wt for accurate CBW * Wound healing: add MVI 1 tab QD, Vit C 500mg QD add Jose 1pkt BID * Poor po intake, rec Ensure Clear TID w/ meals
--- NOTE | 2019-01-11 13:00 | NUR ---
TRANSFER TO FLOOR: Patient transferred to [facility], per Dr. Allison and house painting instructor. Patient does not have shirt and underwear that was recorded in belongings checklist, notified mother and she said she will ask her brother, Christoph since he also took her medications home. Patient has x2 gold cristobal bracelets on her wrist. Endorsed f/u with receiving nurse. D/C restraints and patient has 1:1 sitter, Ms. Epi CNA. Connected patient to tele monitor. VSS. Report given to TONY Lizama. Family informed of transfer.
--- NOTE | 2019-01-11 13:01 | NUR ---
NURSE NOTES: Received patient from ICU. Sitter at bedside for history of suicidal attempt. Patient is restless and uncooperative with care. With ongoing IVF of NS at 100ml/hour. Alvarez cath inplace. Contact isolation observed. Belonging list reviewed and checked, 2 bracelets noted with patient. Shirt and underwear upon admission was documented that it was cut in rig. Placed patient on campus monitor. Patient is room air, with no SOB. Will continue plan of care.
--- NOTE | 2019-01-11 14:00 | NUR ---
NURSE NOTES: Patient is uncooperative with care. patient's family at bedside.
[2019-01-11] MEDS ORDERED: chlordiazePOXIDE 25mg Cap ORAL SCH (14:30)
[2019-01-11] MEDS ORDERED: Racemic EPINEPHrine 2.25% 0.5ml HHN PRN (15:00)
[2019-01-11] MEDS ORDERED: Folic Acid 1 MG, Magnesium Sulfate 2,000 MG, Multivitamin - 12 Injection 10 ML in Sodiu... IV SCH (15:00)
[2019-01-11] MEDS ORDERED: Thiamine HCl 100 MG in D5W 55 ML IVPB SCH (15:00)
--- NOTE | 2019-01-11 15:47 | Surgery Progress Note ---
Surgery Progress Note Subjective Additional Comments awake alert responsive comfortable doing much better still uncooperative and tyring to fall out of bed Objective Last 24 Hour Vital Signs Date Time Temp Pulse Resp B/P (MAP) Pulse Ox O2 Delivery O2 Flow Rate FiO2 01/11/19 13:10 98.4 87 20 150/79 (102) 98 01/11/19 13:00 93 22 145/117 (126) 100 01/11/19 12:00 98.3 85 22 145/98 (114) 100 01/11/19 12:00 93 01/11/19 12:00 Room Air 01/11/19 11:50 100 Room Air 21 01/11/19 11:00 91 22 141/117 (125) 100 01/11/19 10:00 93 22 148/112 (124) 100 01/11/19 09:00 92 22 141/96 (111) 100 01/11/19 08:00 90 01/11/19 08:00 Room Air 01/11/19 07:00 88 22 160/106 (124) 100 01/11/19 06:00 98.0 92 17 154/129 (137) 100 01/11/19 05:00 84 18 159/103 (121) 100 01/11/19 04:00 Room Air 01/11/19 04:00 91 19 134/119 (124) 100 01/11/19 04:00 87 01/11/19 03:00 81 22 155/108 (124) 100 01/11/19 02:00 84 17 142/100 (114) 100 01/11/19 01:00 94 24 134/98 (110) 99 01/11/19 00:00 Room Air 01/11/19 00:00 94 01/11/19 00:00 98.8 99 22 122/85 (97) 99 01/10/19 23:00 120 23 115/66 (82) 98 01/10/19 22:58 110 22 100 Room Air 21 01/10/19 22:50 111 20 100 Room Air 21 01/10/19 22:00 97 24 111/71 (84) 100 01/10/19 21:00 94 22 127/82 (97) 100 01/10/19 20:00 96 01/10/19 20:00 Simple Mask 10.0 01/10/19 20:00 98.9 94 22 127/82 (97) 100 8/1/19 19:59 100 Room Air 21 01/10/19 19:00 95 21 133/93 (106) 100 01/10/19 18:00 94 19 133/90 (104) 100 01/10/19 17:00 99 20 135/91 (106) 99 01/10/19 16:00 10.0 40 01/10/19 16:00 107 01/10/19 16:00 Simple Mask 10.0 01/10/19 16:00 98.6 103 23 135/92 (106) 99 I&O Intake and Output 01/10/19 01/11/19 19:00 07:00 Intake Total 772.25 ml 5047.95 ml Output Total 1505 ml 3575 ml Balance -732.75 ml 1472.95 ml Intake Oral 50 ml 3630 ml IV Total 722.25 ml 1417.95 ml Output Urine Total 1505 ml 3575 ml Dressing: dry Wound: clean Cardiovascular: RSR Respiratory: clear Abdomen: soft, non-tender, present bowel sounds Extremities: no cyanosis, other Laboratory Tests Test 01/11/19 03:45 White Blood Count 13.4 K/UL (4.8-10.8) H Red Blood Count 3.34 M/UL (4.20-5.40) L Hemoglobin 10.3 G/DL (12.0-16.0) L Hematocrit 31.8 % (37.0-47.0) L Mean Corpuscular Volume 95 FL (80-99) Mean Corpuscular Hemoglobin 30.9 PG (27.0-31.0) Mean Corpuscular Hemoglobin Concent 32.4 G/DL (32.0-36.0) Red Cell Distribution Width 13.6 % (11.6-14.8) Platelet Count 200 K/UL (150-450) Mean Platelet Volume 6.5 FL (6.5-10.1) Neutrophils (%) (Auto) % (45.0-75.0) Lymphocytes (%) (Auto) % (20.0-45.0) Monocytes (%) (Auto) % (1.0-10.0) Eosinophils (%) (Auto) % (0.0-3.0) Basophils (%) (Auto) % (0.0-2.0) Sodium Level 140 MMOL/L (136-145) Potassium Level 3.3 MMOL/L (3.5-5.1) L Chloride Level 109 MMOL/L (98-107) H Carbon Dioxide Level 17 MMOL/L (21-32) L Anion Gap 14 mmol/L (5-15) Blood Urea Nitrogen 7 mg/dL (7-18) Creatinine 0.6 MG/DL (0.55-1.30) Estimat Glomerular Filtration Rate > 60 mL/min (>60) Glucose Level 141 MG/DL (74-106) H Calcium Level 7.4 MG/DL (8.5-10.1) L Iron Level 15 ug/dL (50-175) L Total Iron Binding Capacity 240 ug/dL (250-450) L Percent Iron Saturation 6 % (15-50) L Unsaturated Iron Binding 225 ug/dL (112-346) Total Bilirubin 0.4 MG/DL (0.2-1.0) Aspartate Amino Transf (AST/SGOT) 29 U/L (15-37) Alanine Aminotransferase (ALT/SGPT) 18 U/L (12-78) Alkaline Phosphatase 71 U/L (46-116) Total Protein 6.5 G/DL (6.4-8.2) Albumin 2.3 G/DL (3.4-5.0) L Globulin 4.2 g/dL Albumin/Globulin Ratio 0.5 (1.0-2.7) L Triglycerides Level 113 MG/DL (30-150) Cholesterol Level 173 MG/DL (< 200) LDL Cholesterol 77 mg/dL (<100) HDL Cholesterol 48 MG/DL (40-60) Cholesterol/HDL Ratio 3.6 (3.3-4.4) Amylase Level 282 U/L (25-115) H Lipase 1113 U/L (73-393) H Plan Problems: (1) Leukocytosis Assessment & Plan: Leukocytosis likely due to stress reaction. Lactic acidosis resolved Labs noted Continue trend labs (2) Drug overdose (3) Respiratory failure (4) Lactic acid acidosis (5) Altered mental status, unspecified (6) Deep tissue injury Assessment & Plan: Pt presented on admission with multiple pressure injuries.Non-blanching erythema without induration/fluctuance medial R elbow. DTPI L elbow.Base of wound maroon and indurated.(L)0.9cm x (W)0.8cm. An area of non-blanchable erythema without induration/fluctuance medial L elbow. DTPI sacrococcygeal area. base of wound indurated -purple with surrounding red tinged borders. (L)1cm x (W)1cm. DTPI L buttocks. base of wound maroon,indurated with irregular shaped borders that are red . Periwound is pink and blanchable. (L)4.2cm x (W)3.5cm. Non-blanchable erythema that is indurated at base of wound L buttocks (L)4.5cm x (W)5cm.Periwound pink and blanchable. Non-blanchable erythema without induration or fluctuance L heel. Non-blanchable erythema without induration or fluctuance L lateral Malleolus. Non-blanchable erythema without induration /fluctuance R heel. Tx.Plan: Apply Moisture Barrier paste to sacrococcygeal area, R and L buttocks. Apply Cavilon periwound. Cover with Optifoam drsgs. Change every 3 days and prn. Apply Cavilon Skin Barrier to R and L elbows. Cover each site with Optifoam drsg. Change every 7 days and prn. Apply Cavilon Skin Barrier to R and L heels. Cover each heel with Optifoam drsg. Change every 7 days and prn. APM/MEL Mattress overlay. Reposition at lease every 2 hours or as tolerated. Off-load heels with pillow. (7) Pancreatitis Assessment & Plan: likely medication related IV hydration I&O trend labs US ordered Romero Sotomayor Jan 11, 2019 15:47
--- NOTE | 2019-01-11 18:50 | NUR ---
NURSE NOTES: Will remove [place] cath per Doctor's order.
--- NOTE | 2019-01-11 19:30 | NUR ---
HAND-OFF: Report given to Esteban Campbell RN.
[2019-01-11] MEDS ORDERED: Bisacodyl EC 5mg tab ORAL PRN ×2 (20:15)
[2019-01-11] MEDS ORDERED: Iron Sucrose 100 MG in NS 55 ML IV SCH (21:00)
[2019-01-11] MEDS: Iron Sucrose 100 MG in NS 55 ML IV SCH (21:32)
[2019-01-12] VITALS (7 sets, daily range): BP systolic 137–146; BP diastolic 75–106
[2019-01-12] MEDS: Dexamethasone 4mg/ml vial IVP SCH ×4 (00:34→17:04)
[2019-01-12] MEDS: LORazepam Inj 2mg/ml 1ml IV PRN ×4 (00:44→20:53)
--- NOTE | 2019-01-12 03:02 | NUR ---
NURSE NOTES: Patient is restless, confused, talkative and continues to attempt to leave the bed. Sitter at bed side. Patient is not oriented to place or time through observing her speak. Will continue to monitor.
--- NOTE | 2019-01-12 04:45 | Progress Note ---
DATE: 01/11/2019 SUBJECTIVE: The patient's family were in the room, we had a family meeting. The patient has a history of alcohol dependence as well as eating disorder, anorexia, and bulimia. pills mixed with water. At times, the patient overdosed on the benzodiazepine and other medications that she had available to her. The patient is still confused. She was unable to answer the questions and be engaged. MENTAL STATUS EXAMINATION: The patient is alert and oriented times self. Mood is agitated. Affect is flat. Thought process, disorganized. Thought content, not suicidal or homicidal. Cognition is impaired. ASSESSMENT: 1. Acute encephalopathy. 2. Status post overdose. PLAN: 1. Continue the Librium, which was increased to 50 t.i.d. 2. Ativan p.r.n. 3. Risperidone. 4. Discussed the case with the family and the nurse. Chris Perdomo M.D. DR: RADHA JOB#: [id number] CC: UBALDO
[2019-01-12] MEDS: chlordiazePOXIDE 25mg Cap ORAL SCH ×3 (06:33→21:32)
[2019-01-12] MEDS: Piperacillin/Tazobactam 3.375 GM in NS 110 ML IVPB SCH ×3 (06:33→21:35)
[2019-01-12 06:52] LABS: AMYLASE 297 U/L (25-115); ANION GAP 11 mmol/L (5-15); BLOOD UREA NITROGEN 10 mg/dL (7-18); CALCIUM 7.8 MG/DL (8.5-10.1); CARBON DIOXIDE 19 MMOL/L (21-32); CHLORIDE 108 MMOL/L (98-107); CREATININE 0.6 MG/DL (0.55-1.30); POTASSIUM 2.9 MMOL/L (3.5-5.1); SODIUM 138 MMOL/L (136-145)
[2019-01-12 07:06] LABS: HEMATOCRIT 40.2 % (37.0-47.0); HEMOGLOBIN 13.2 G/DL (12.0-16.0); MEAN CORPUSCULAR VOLUME 93 FL (80-99); PLATELET COUNT 295 K/UL (150-450); RED BLOOD COUNT 4.33 M/UL (4.20-5.40); RED CELL DISTRIBUTION WIDTH 12.7 % (11.6-14.8); WHITE BLOOD COUNT 11.8 K/UL (4.8-10.8)
--- NOTE | 2019-01-12 07:40 | NUR ---
HAND-OFF: Report given to Bushra JIMENEZ.
--- NOTE | 2019-01-12 07:40 | NUR ---
NURSE NOTES: Received pt from [facility] Orell[facility] in stable condition with no cardiopulmonary distress noted. Pt is AAOx1 in bed with sitter on RA SaO2 98%. Pt connected to monitor worker currently SR. Skin alterations noted. Bed is in lowest position w/alarm on, side rails up x 2, call light within reach. Will continue to monitor. RFA 22g noted.
--- NOTE | 2019-01-12 08:41 | General Progress Note ---
Assessment/Plan Problem List: (1) Anemia ICD Codes: D64.9 - Anemia, unspecified SNOMED: 161810649 (2) Pancreatitis ICD Codes: K85.90 - Acute pancreatitis without necrosis or infection, unspecified SNOMED: 75426009 (3) Altered mental status, unspecified ICD Codes: R41.82 - Altered mental status, unspecified SNOMED: 713245062 (4) Lactic acid acidosis ICD Codes: E87.2 - Acidosis SNOMED: 17880815 (5) Respiratory failure ICD Codes: J96.90 - Respiratory failure, unspecified, unspecified whether with hypoxia or hypercapnia SNOMED: 428644415, 022745186 (6) Drug overdose ICD Codes: T50.901A - Poisoning by unspecified drugs, medicaments and biological substances, accidental (unintentional), initial encounter SNOMED: 30302996 (7) Leukocytosis ICD Codes: D72.829 - Elevated white blood cell count, unspecified SNOMED: 083004212, 180683728 Assessment/Plan: CT of abd and pelvic to eval for rising amylase and lipase iv iron fu labs respiratory care fu psych add colace and miralax Subjective ROS Limited/Unobtainable: Yes Allergies: Coded Allergies: Shrimp (Verified Allergy, Unknown, 01/11/19) Stated by patient's mother at bedside Uncoded Allergies: nectarines (Allergy, Unknown, 01/11/19) Stated by patient's mother at bedside peaches (Allergy, Unknown, 01/11/19) Stated by patient's mother at bedside Objective Last 24 Hour Vital Signs Date Time Temp Pulse Resp B/P (MAP) Pulse Ox O2 Delivery O2 Flow Rate FiO2 01/12/19 08:12 98.1 98 20 144/98 (113) 97 01/12/19 04:00 Room Air 01/12/19 03:41 97.6 91 20 143/102 (116) 96 01/12/19 03:31 90 01/12/19 00:03 97.9 88 20 145/106 (119) 96 01/12/19 00:00 Room Air 01/12/19 00:00 101 01/11/19 20:00 89 01/11/19 20:00 Room Air 01/11/19 19:13 97.5 90 20 157/87 (110) 97 01/11/19 18:57 Room Air 01/11/19 16:00 98.1 93 22 139/96 (110) 95 01/11/19 16:00 105 01/11/19 16:00 Room Air 01/11/19 13:10 98.4 87 20 150/79 (102) 98 01/11/19 13:00 93 22 145/117 (126) 100 01/11/19 12:00 98.3 85 22 145/98 (114) 100 01/11/19 12:00 93 01/11/19 12:00 Room Air 01/11/19 11:50 100 Room Air 21 01/11/19 11:00 91 22 141/117 (125) 100 01/11/19 10:00 93 22 148/112 (124) 100 01/11/19 09:00 92 22 141/96 (111) 100 Intake and Output 01/11/19 01/12/19 18:59 06:59 Intake Total 712.25 ml 1041.65 ml Output Total 2920 ml Balance -2207.75 ml 1041.65 ml Intake Oral 320 ml 240 ml IV Total 392.25 ml 801.65 ml Output Urine Total 2920 ml # Voids 5 Laboratory Tests 01/12/19 05:39: White Blood Count 11.8H, Red Blood Count 4.33, Hemoglobin 13.2, Hematocrit 40.2 , Mean Corpuscular Volume 93, Mean Corpuscular Hemoglobin 30.6, Mean Corpuscular Hemoglobin Concent 32.9, Red Cell Distribution Width 12.7, Platelet Count 295, Mean Platelet Volume 5.8L, Neutrophils (%) (Auto) , Lymphocytes (%) ( Auto) , Monocytes (%) (Auto) , Eosinophils (%) (Auto) , Basophils (%) (Auto) , Neutrophils % (Manual) [Pending], Lymphocytes % (Manual) [Pending], Platelet Estimate [Pending], Platelet Morphology [Pending], Sodium Level 138, Potassium Level 2.9L, Chloride Level 108H, Carbon Dioxide Level 19L, Anion Gap 11, Blood Urea Nitrogen 10, Creatinine 0.6, Estimat Glomerular Filtration Rate > 60, Glucose Level 81, Calcium Level 7.8L, Amylase Level 297H, Lipase > 2000H Height (Feet): 5 Height (Inches): 4.00 Weight (Pounds): 112 General Appearance: no apparent distress EENT: normal ENT inspection Neck: supple Cardiovascular: normal rate Respiratory/Chest: lungs clear Abdomen: normal bowel sounds, non tender, soft Extremities: non-tender Eleazar Tristan MD Jan 12, 2019 08:41
[2019-01-12] MEDS ORDERED: Isovue-300 100ml vial INJ PRN (08:45)
[2019-01-12] MEDS: Docusate 100mg cap ORAL SCH ×2 (09:00→17:04)
[2019-01-12] MEDS: Pantoprazole Inj IVP SCH (09:29)
[2019-01-12] MEDS: Heparin 5000 units/ml inj SUBQ SCH ×2 (09:30→20:45)
--- NOTE | 2019-01-12 12:11 | Surgery Progress Note ---
Surgery Progress Note Subjective Symptoms: improved, voiding well, passing flatus Additional Comments downgraded labs improved US noted lipase elevated >2K Objective Last 24 Hour Vital Signs Date Time Temp Pulse Resp B/P (MAP) Pulse Ox O2 Delivery O2 Flow Rate FiO2 01/12/19 08:12 98.1 98 20 144/98 (113) 97 01/12/19 08:00 98 01/12/19 04:00 Room Air 01/12/19 03:41 97.6 91 20 143/102 (116) 96 01/12/19 03:31 90 01/12/19 00:03 97.9 88 20 145/106 (119) 96 01/12/19 00:00 Room Air 01/12/19 00:00 101 01/11/19 20:00 89 01/11/19 20:00 Room Air 01/11/19 19:13 97.5 90 20 157/87 (110) 97 01/11/19 18:57 Room Air 01/11/19 16:00 98.1 93 22 139/96 (110) 95 01/11/19 16:00 105 01/11/19 16:00 Room Air 01/11/19 13:10 98.4 87 20 150/79 (102) 98 01/11/19 13:00 93 22 145/117 (126) 100 I&O Intake and Output 01/11/19 01/12/19 19:00 07:00 Intake Total 714.75 ml 989.15 ml Output Total 2520 ml Balance -1805.25 ml 989.15 ml Intake Oral 170 ml 240 ml IV Total 544.75 ml 749.15 ml Output Urine Total 2520 ml # Voids 5 Cardiovascular: RSR Respiratory: clear Abdomen: soft, non-tender, present bowel sounds Extremities: no edema, no tenderness, no cyanosis Laboratory Tests Test 01/12/19 05:39 White Blood Count 11.8 K/UL (4.8-10.8) H Red Blood Count 4.33 M/UL (4.20-5.40) Hemoglobin 13.2 G/DL (12.0-16.0) Hematocrit 40.2 % (37.0-47.0) Mean Corpuscular Volume 93 FL (80-99) Mean Corpuscular Hemoglobin 30.6 PG (27.0-31.0) Mean Corpuscular Hemoglobin Concent 32.9 G/DL (32.0-36.0) Red Cell Distribution Width 12.7 % (11.6-14.8) Platelet Count 295 K/UL (150-450) Mean Platelet Volume 5.8 FL (6.5-10.1) L Neutrophils (%) (Auto) % (45.0-75.0) Lymphocytes (%) (Auto) % (20.0-45.0) Monocytes (%) (Auto) % (1.0-10.0) Eosinophils (%) (Auto) % (0.0-3.0) Basophils (%) (Auto) % (0.0-2.0) Differential Total Cells Counted 100 Neutrophils % (Manual) 91 % (45-75) H Lymphocytes % (Manual) 5 % (20-45) L Monocytes % (Manual) 4 % (1-10) Eosinophils % (Manual) 0 % (0-3) Basophils % (Manual) 0 % (0-2) Band Neutrophils 0 % (0-8) Platelet Estimate Adequate Platelet Morphology Normal Red Blood Cell Morphology Normal Sodium Level 138 MMOL/L (136-145) Potassium Level 2.9 MMOL/L (3.5-5.1) L Chloride Level 108 MMOL/L (98-107) H Carbon Dioxide Level 19 MMOL/L (21-32) L Anion Gap 11 mmol/L (5-15) Blood Urea Nitrogen 10 mg/dL (7-18) Creatinine 0.6 MG/DL (0.55-1.30) Estimat Glomerular Filtration Rate > 60 mL/min (>60) Glucose Level 81 MG/DL (74-106) Calcium Level 7.8 MG/DL (8.5-10.1) L Amylase Level 297 U/L (25-115) H Lipase > 2000 U/L (73-393) H Plan Problems: (1) Leukocytosis Assessment & Plan: Leukocytosis likely due to stress reaction. Lactic acidosis resolved Labs noted Continue trend labs (2) Drug overdose (3) Respiratory failure (4) Lactic acid acidosis (5) Altered mental status, unspecified (6) Deep tissue injury Assessment & Plan: Pt presented on admission with multiple pressure injuries.Non-blanching erythema without induration/fluctuance medial R elbow. DTPI L elbow.Base of wound maroon and indurated.(L)0.9cm x (W)0.8cm. An area of non-blanchable erythema without induration/fluctuance medial L elbow. DTPI sacrococcygeal area. base of wound indurated -purple with surrounding red tinged borders. (L)1cm x (W)1cm. DTPI L buttocks. base of wound maroon,indurated with irregular shaped borders that are red . Periwound is pink and blanchable. (L)4.2cm x (W)3.5cm. Non-blanchable erythema that is indurated at base of wound L buttocks (L)4.5cm x (W)5cm.Periwound pink and blanchable. Non-blanchable erythema without induration or fluctuance L heel. Non-blanchable erythema without induration or fluctuance L lateral Malleolus. Non-blanchable erythema without induration /fluctuance R heel. Tx.Plan: Apply Moisture Barrier paste to sacrococcygeal area, R and L buttocks. Apply Cavilon periwound. Cover with Optifoam drsgs. Change every 3 days and prn. Apply Cavilon Skin Barrier to R and L elbows. Cover each site with Optifoam drsg. Change every 7 days and prn. Apply Cavilon Skin Barrier to R and L heels. Cover each heel with Optifoam drsg. Change every 7 days and prn. APM/MEL Mattress overlay. Reposition at lease every 2 hours or as tolerated. Off-load heels with pillow. (7) Pancreatitis Assessment & Plan: Impression: No gallstones demonstrated. However, there is gallbladder wall thickening. Possible etiologies are reactive thickening from adjacent hepatic inflammation, edema from systemic causes. Acalculus acute cholecystitis or acute cholecystitis from a sonographically occult stone also possibilities, and hepatobiliary nuclear scan could be considered if there is high clinical suspicion for such likely medication related IV hydration I&O lipase elevated no pain trend Romero Sotomayor Jan 12, 2019 12:11
--- NOTE | 2019-01-12 14:06 | NUR ---
NURSE NOTES: Lata (Pt's mother) just spoke to Dr. Tristan on the phone to obtain consent for IV contrast- however she doesn't feel comfortable signing at this time due to concern for her daughter's possible shellfish allergy. Dr. Tristan stated he will cancel ABD CT for today and will be here in person tomorrow.
--- NOTE | 2019-01-12 14:54 | Cardiology Report ---
APPROVED REPORT EKG Measurement Heart [id number]-T changes Abnormal ECG
--- NOTE | 2019-01-12 14:58 | Pulmonolgy Critical Care Note ---
Critical Care - Asmt/Plan Assessment/Plan: Pulmonary CCM Progress Note Assessment/Plan drug overdose respiratory failure acute leukocytosis anemia metabolic acidosis severe protein calorie malnutrition pancreatitis PLAN support as able IV hydration DVT prophylaxis ID eval vent support try to wean monitor HH surgical follow up noted critical medications/laboratory data/nursing notes/ICU care reviewed in detail note reviewed and edited care discussed with RN and RT ICU time spent 40 minutes Critical Care - Subjective Interval Events: icu care reviewed on vent events noted ROS Limited/Unobtainable: Yes Condition: critical EKG Rhythm: Sinus Rhythm I&O: Intake and Output 01/09/19 01/10/19 19:00 07:00 Intake Total 1992.5 ml 1622.500 ml Output Total 840 ml 1130 ml Balance 1152.5 ml 492.500 ml Intake Oral 0 ml IV Total 1792.5 ml 1622.500 ml Other 200 ml Output Urine Total 840 ml 1130 ml Critical Care - Objective Vital Signs Noted Labs Test 01/08/19 21:44 01/08/19 21:45 01/08/19 22:30 01/08/19 23:15 Arterial Blood pH 7.443 (7.350-7.450) Arterial Blood Partial Pressure CO2 32.6 mmHg (35.0-45.0) Arterial Blood Partial Pressure O2 68.3 mmHg (75.0-100.0) Arterial Blood HCO3 21.8 mmol/L (22.0-26.0) Arterial Blood Oxygen Saturation 92.7 % (95-100) Arterial Blood Base Excess -1.6 (-2-2) Chriss Test Positive Venous Blood pH Venous Blood Partial Pressure CO2 Venous Blood Partial Pressure O2 Venous Blood HCO3 Venous Blood Total Carbon Dioxide Venous Bld O2 Saturation (Measured) Venous Blood Oxygen Saturation Venous Blood Base Excess Methemoglobin 0.6 Sodium (Blood Gas) White Blood Count 26.1 K/UL (4.8-10.8) Red Blood Count 4.05 M/UL (4.20-5.40) Hemoglobin 12.4 G/DL (12.0-16.0) Hematocrit 35.9 % (37.0-47.0) Mean Corpuscular Volume 89 FL (80-99) Mean Corpuscular Hemoglobin 30.6 PG (27.0-31.0) Mean Corpuscular Hemoglobin Concent 34.5 G/DL (32.0-36.0) Red Cell Distribution Width 12.4 % (11.6-14.8) Platelet Count 275 K/UL (150-450) Mean Platelet Volume 6.3 FL (6.5-10.1) Neutrophils (%) (Auto) % (45.0-75.0) Lymphocytes (%) (Auto) % (20.0-45.0) Monocytes (%) (Auto) % (1.0-10.0) Eosinophils (%) (Auto) % (0.0-3.0) Basophils (%) (Auto) % (0.0-2.0) Differential Total Cells Counted 100 Neutrophils % (Manual) 62 % (45-75) Lymphocytes % (Manual) 6 % (20-45) Monocytes % (Manual) 5 % (1-10) Eosinophils % (Manual) 0 % (0-3) Basophils % (Manual) 0 % (0-2) Band Neutrophils 27 % (0-8) Platelet Estimate Adequate Platelet Morphology Normal Red Blood Cell Morphology Normal Prothrombin Time 10.7 SEC (9.30-11.50) Prothromb Time International Ratio 1.0 (0.9-1.1) Activated Partial Thromboplast Time 25 SEC (23-33) Sodium Level 143 MMOL/L (136-145) Potassium Level 3.3 MMOL/L (3.5-5.1) Chloride Level 106 MMOL/L (98-107) Carbon Dioxide Level 23 MMOL/L (21-32) Anion Gap 14 mmol/L (5-15) Blood Urea Nitrogen 19 mg/dL (7-18) Creatinine 1.5 MG/DL (0.55-1.30) Estimat Glomerular Filtration Rate 40.0 mL/min (>60) Glucose Level 104 MG/DL (74-106) Lactic Acid Level 5.50 mmol/L (0.4-2.0) 3.60 mmol/L (0.66-2.22) Calcium Level 8.2 MG/DL (8.5-10.1) Phosphorus Level 3.9 MG/DL (2.5-4.9) Magnesium Level 1.2 MG/DL (1.8-2.4) Total Bilirubin 0.6 MG/DL (0.2-1.0) Aspartate Amino Transf (AST/SGOT) 21 U/L (15-37) Alanine Aminotransferase (ALT/SGPT) 16 U/L (12-78) Alkaline Phosphatase 61 U/L (46-116) Total Creatine Kinase 251 U/L (26-308) Creatine Kinase MB 2.4 NG/ML (0.0-3.6) Creatine Kinase MB Relative Index 0.9 Troponin I 0.007 ng/mL (0.000-0.056) Pro-B-Type Natriuretic Peptide 74 pg/mL (0-125) Total Protein 6.2 G/DL (6.4-8.2) Albumin 2.9 G/DL (3.4-5.0) Globulin 3.3 g/dL Albumin/Globulin Ratio 0.9 (1.0-2.7) Triglycerides Level 37 MG/DL (30-150) Amylase Level 1149 U/L (25-115) Lipase 112 U/L (73-393) Human Chorionic Gonadotropin, Quant 1 mIU/mL (1-6) Salicylates Level 0.2 ug/mL (2.8-20) Acetaminophen Level < 2 MCG/ML (10-30) Serum Alcohol < 3 mg/dL Urine Color Pale yellow Urine Appearance Cloudy Urine pH 6 (4.5-8.0) Urine Specific [place] 1.015 (1.005-1.035) Urine Protein 2+ (NEGATIVE) Urine Glucose (UA) Negative (NEGATIVE) Urine Ketones Negative (NEGATIVE) Urine Blood 1+ (NEGATIVE) Urine Nitrite Negative (NEGATIVE) Urine Bilirubin Negative (NEGATIVE) Urine Urobilinogen Normal MG/DL (0.0-1.0) Urine Leukocyte Esterase 3+ (NEGATIVE) Urine RBC 2-4 /HPF (0 - 2) Urine WBC Tntc /HPF (0 - 2) Urine Squamous Epithelial Cells None /LPF (NONE/OCC) Urine Bacteria Many /HPF (NONE) Urine HCG, Qualitative Negative (NEGATIVE) Urine Opiates Screen Negative (NEGATIVE) Urine Barbiturates Screen Negative (NEGATIVE) Phencyclidine (PCP) Screen Negative (NEGATIVE) Urine Amphetamines Screen Negative (NEGATIVE) Urine Benzodiazepines Screen Positive (NEGATIVE) Urine Cocaine Screen Negative (NEGATIVE) Urine Marijuana (THC) Screen Negative (NEGATIVE) Test 01/09/19 03:50 01/09/19 05:40 01/09/19 07:37 01/09/19 12:00 White Blood Count 19.8 K/UL (4.8-10.8) Red Blood Count 3.54 M/UL (4.20-5.40) Hemoglobin 11.0 G/DL (12.0-16.0) Hematocrit 33.0 % (37.0-47.0) Mean Corpuscular Volume 93 FL (80-99) Mean Corpuscular Hemoglobin 31.0 PG (27.0-31.0) Mean Corpuscular Hemoglobin Concent 33.3 G/DL (32.0-36.0) Red Cell Distribution Width 13.2 % (11.6-14.8) Platelet Count 231 K/UL (150-450) Mean Platelet Volume 6.7 FL (6.5-10.1) Neutrophils (%) (Auto) % (45.0-75.0) Lymphocytes (%) (Auto) % (20.0-45.0) Monocytes (%) (Auto) % (1.0-10.0) Eosinophils (%) (Auto) % (0.0-3.0) Basophils (%) (Auto) % (0.0-2.0) Differential Total Cells Counted 100 Neutrophils % (Manual) 82 % (45-75) Lymphocytes % (Manual) 7 % (20-45) Monocytes % (Manual) 1 % (1-10) Eosinophils % (Manual) 0 % (0-3) Basophils % (Manual) 0 % (0-2) Band Neutrophils 10 % (0-8) Platelet Estimate Adequate Platelet Morphology Normal Hypochromasia 1+ Anisocytosis 1+ Sodium Level 144 MMOL/L (136-145) Potassium Level 3.3 MMOL/L (3.5-5.1) Chloride Level 111 MMOL/L (98-107) Carbon Dioxide Level 24 MMOL/L (21-32) Anion Gap 9 mmol/L (5-15) Blood Urea Nitrogen 16 mg/dL (7-18) Creatinine 1.1 MG/DL (0.55-1.30) Estimat Glomerular Filtration Rate 57.2 mL/min (>60) Glucose Level 100 MG/DL (74-106) Lactic Acid Level 3.20 mmol/L (0.4-2.0) 3.40 mmol/L (0.66-2.22) 2.10 mmol/L (0.4-2.0) Calcium Level 7.2 MG/DL (8.5-10.1) Magnesium Level 1.3 MG/DL (1.8-2.4) Total Bilirubin 0.6 MG/DL (0.2-1.0) Aspartate Amino Transf (AST/SGOT) 22 U/L (15-37) Alanine Aminotransferase (ALT/SGPT) 11 U/L (12-78) Alkaline Phosphatase 49 U/L (46-116) Total Protein 5.6 G/DL (6.4-8.2) Albumin 2.3 G/DL (3.4-5.0) Globulin 3.3 g/dL Albumin/Globulin Ratio 0.7 (1.0-2.7) Arterial Blood pH 7.411 (7.350-7.450) Arterial Blood Partial Pressure CO2 32.1 mmHg (35.0-45.0) Arterial Blood Partial Pressure O2 118.9 mmHg (75.0-100.0) Arterial Blood HCO3 19.9 mmol/L (22.0-26.0) Arterial Blood Oxygen Saturation 97.8 % (95-100) Arterial Blood Base Excess -3.9 (-2-2) Chriss Test Positive Test 01/09/19 18:55 01/10/19 03:55 01/10/19 05:19 Lactic Acid Level 1.40 mmol/L (0.4-2.0) 0.70 mmol/L (0.4-2.0) White Blood Count 18.6 K/UL (4.8-10.8) Red Blood Count 3.04 M/UL (4.20-5.40) Hemoglobin 9.3 G/DL (12.0-16.0) Hematocrit 28.9 % (37.0-47.0) Mean Corpuscular Volume 95 FL (80-99) Mean Corpuscular Hemoglobin 30.7 PG (27.0-31.0) Mean Corpuscular Hemoglobin Concent 32.4 G/DL (32.0-36.0) Red Cell Distribution Width 13.4 % (11.6-14.8) Platelet Count 175 K/UL (150-450) Mean Platelet Volume 6.4 FL (6.5-10.1) Neutrophils (%) (Auto) % (45.0-75.0) Lymphocytes (%) (Auto) % (20.0-45.0) Monocytes (%) (Auto) % (1.0-10.0) Eosinophils (%) (Auto) % (0.0-3.0) Basophils (%) (Auto) % (0.0-2.0) Erythrocyte Sedimentation Rate 74 MM/HR (0-20) Prothrombin Time 10.2 SEC (9.30-11.50) Prothromb Time International Ratio 1.0 (0.9-1.1) Activated Partial Thromboplast Time 36 SEC (23-33) Sodium Level 142 MMOL/L (136-145) Potassium Level 3.2 MMOL/L (3.5-5.1) Chloride Level 114 MMOL/L (98-107) Carbon Dioxide Level 19 MMOL/L (21-32) Anion Gap 9 mmol/L (5-15) Blood Urea Nitrogen 11 mg/dL (7-18) Creatinine 0.7 MG/DL (0.55-1.30) Estimat Glomerular Filtration Rate > 60 mL/min (>60) Glucose Level 97 MG/DL (74-106) Calcium Level 7.2 MG/DL (8.5-10.1) Total Bilirubin 0.4 MG/DL (0.2-1.0) Aspartate Amino Transf (AST/SGOT) 27 U/L (15-37) Alanine Aminotransferase (ALT/SGPT) 11 U/L (12-78) Alkaline Phosphatase 61 U/L (46-116) C-Reactive Protein, Quantitative 42.2 mg/dL (0.00-0.90) Total Protein 5.4 G/DL (6.4-8.2) Albumin 2.0 G/DL (3.4-5.0) Globulin 3.4 g/dL Albumin/Globulin Ratio 0.6 (1.0-2.7) Amylase Level 844 U/L (25-115) Lipase 446 U/L (73-393) Arterial Blood pH 7.351 (7.350-7.450) Arterial Blood Partial Pressure CO2 28.6 mmHg (35.0-45.0) Arterial Blood Partial Pressure O2 82.4 mmHg (75.0-100.0) Arterial Blood HCO3 15.5 mmol/L (22.0-26.0) Arterial Blood Oxygen Saturation 94.8 % (95-100) Arterial Blood Base Excess -9 (-2-2) Chriss Test N/a Objective: WDWN clear breath sounds bilaterally without rhonchi or wheeze [id number] without MRG NABS nontender no HSM no CCE Alert, interactive Critical Care - Objective Last 24 Hour Vital Signs Date Time Temp Pulse Resp B/P (MAP) Pulse Ox O2 Delivery O2 Flow Rate FiO2 01/12/19 12:34 98.2 116 21 146/75 (98) 01/12/19 12:00 Room Air 01/12/19 12:00 129 01/12/19 08:12 98.1 98 20 144/98 (113) 97 01/12/19 08:00 Room Air 01/12/19 08:00 98 01/12/19 04:00 Room Air 01/12/19 03:41 97.6 91 20 143/102 (116) 96 01/12/19 03:31 90 01/12/19 00:03 97.9 88 20 145/106 (119) 96 01/12/19 00:00 Room Air 01/12/19 00:00 101 01/11/19 20:00 89 01/11/19 20:00 Room Air 01/11/19 19:13 97.5 90 20 157/87 (110) 97 01/11/19 18:57 Room Air 01/11/19 16:00 98.1 93 22 139/96 (110) 95 01/11/19 16:00 105 01/11/19 16:00 Room Air Critical Care - Subjective ROS Limited/Unobtainable: No FI02: 21 Vent Support Breath Rate: 20 Vent Support Mode: AC Vent Tidal Volume: 420 Sputum Amount: None PEEP: 5.0 PIP: 21 I&O: Intake and Output 01/11/19 01/12/19 19:00 07:00 Intake Total 714.75 ml 989.15 ml Output Total 2520 ml Balance -1805.25 ml 989.15 ml Intake Oral 170 ml 240 ml IV Total 544.75 ml 749.15 ml Output Urine Total 2520 ml # Voids 5 ET-Tube: 7.5 ET Position: 22 eJan Pierre Allison MD Jan 12, 2019 14:58
--- NOTE | 2019-01-12 17:00 | NUR ---
CASE MANAGEMENT: REVIEW SI: DRUG OVERDOSE . RESP FAILURE . ACUTE ENCEPHALOPATHY T 98.2 HR 129 RR 21 BP 146/75 SAT 96% ROOM AIR WBC 11.8 AMYLASE 297 LIPASE >2000 IS: BANANA BAG IV Q24 THIAMINE IV Q24HR LIBRIUM PO Q8HR VENOFER IV QHS ZOSYN IV Q8HR NS IVF @ 100ML/HR PATIENT ADMITTED TO STEP DOWN UNIT 01/11/2019 DCP: PATIENT IS FROM HOME
[2019-01-12] MEDS: Folic Acid 1 MG, Magnesium Sulfate 2,000 MG, Multivitamin - 12 Injection 10 ML in Sodiu... IV SCH (17:04)
[2019-01-12] MEDS: Thiamine HCl 100 MG in D5W 55 ML IVPB SCH (17:30)
--- NOTE | 2019-01-12 17:30 | NUR ---
NURSE NOTES: Dr Perdomo came in to see pt and discussed CT w/ contrast procedure w/pt's mother over the phone (Mirian Cedillo). Mirian agreed to provide telephone consent. consent obtained and Dr. Tristan informed.
--- NOTE | 2019-01-12 19:19 | NUR ---
HAND-OFF: Report given to TONY Orellana. Pt in stable condition.
--- NOTE | 2019-01-12 19:20 | NUR ---
NURSE NOTES: Received patient from Bushra JIMENEZ. Pt in bed resting with no signs of acute distress. Pt is A/O X2, VSS, Sitter at bed side, Rt AC 22g patent and intact. Pt connected to cardiac cath technologist and skin alterations noted. Bed at its lowest position, call light in reach and X 3 bed rails are up.
[2019-01-12] MEDS: Miralax 17gm pkt ORAL SCH (20:34)
[2019-01-12] MEDS: Iron Sucrose 100 MG in NS 55 ML IV SCH (20:34)
[2019-01-13] VITALS: BP 145/103
--- NOTE | 2019-01-13 | Progress Note ---
DATE: 01/13/2019 SUBJECTIVE: The patient is gradually improving. Her labs look better. She is still agitated, attempting to come out of bed. The patient knew her name, date of . She knows she is in [place]. However, she is still unable to be engaged during the evaluation. She is hallucinating. Discussed the case with her mother. MENTAL STATUS EXAMINATION: The patient is alert and oriented x2. Mood is agitated. Affect is blunted, congruent with mood. Thought process is disorganized. Thought content, no suicidal or homicidal ideation. Memory, concentration, and attention is impaired. Insight and judgment non-existent. ASSESSMENT: [place] I Alcohol and benzodiazepine dependence. [place] II Deferred. [place] III As above. [place] IV Low. [place] V 20. PLAN: 1. The patient will be continued with current medication. Continue the Librium. 2. We will continue the Ativan. 3. Continue the risperidone. 4. The patient is awaiting CT of abdomen with contrast. 5. Discussed the case with Dr. Tristan. Chris Perdomo M.D. DR: SARAI JOB#: [id number] CC:
[2019-01-13] MEDS: Morphine Sulfate 2mg/ml Inj(IV/IM USE ONLY) IVP PRN ×3 (00:43→22:57)
[2019-01-13] MEDS: LORazepam Inj 2mg/ml 1ml IV PRN ×4 (02:36→20:47)
[2019-01-13 04:00] VITALS: BP 152/107
[2019-01-13] MEDS: Piperacillin/Tazobactam 3.375 GM in NS 110 ML IVPB SCH ×3 (05:12→22:58)
[2019-01-13] MEDS: chlordiazePOXIDE 25mg Cap ORAL SCH ×3 (05:29→22:58)
--- NOTE | 2019-01-13 05:48 | NUR ---
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 Patient is pulling on her IV, she is forgetful and confused. Talking and distractions work for a short period of time. Reorienting patient is on going. Patient is oriented to person, place, time, and forgets why she is here.
--- NOTE | 2019-01-13 06:30 | General Progress Note ---
Assessment/Plan Problem List: (1) Anemia ICD Codes: D64.9 - Anemia, unspecified SNOMED: 924219145 (2) Pancreatitis ICD Codes: K85.90 - Acute pancreatitis without necrosis or infection, unspecified SNOMED: 99067629 (3) Altered mental status, unspecified ICD Codes: R41.82 - Altered mental status, unspecified SNOMED: 276829932 (4) Lactic acid acidosis ICD Codes: E87.2 - Acidosis SNOMED: 42723270 (5) Respiratory failure ICD Codes: J96.90 - Respiratory failure, unspecified, unspecified whether with hypoxia or hypercapnia SNOMED: 430418353, 589909722 (6) Drug overdose ICD Codes: T50.901A - Poisoning by unspecified drugs, medicaments and biological substances, accidental (unintentional), initial encounter SNOMED: 52879520 (7) Leukocytosis ICD Codes: D72.829 - Elevated white blood cell count, unspecified SNOMED: 084516518, 411889352 Assessment/Plan: CT of abd and pelvic to eval for rising amylase and lipase iv iron fu labs respiratory care fu psych on colace and miralax had BM pain control Subjective ROS Limited/Unobtainable: Yes Allergies: Coded Allergies: Shrimp (Verified Allergy, Unknown, 01/11/19) Stated by patient's mother at bedside Uncoded Allergies: nectarines (Allergy, Unknown, 01/11/19) Stated by patient's mother at bedside peaches (Allergy, Unknown, 01/11/19) Stated by patient's mother at bedside Objective Last 24 Hour Vital Signs Date Time Temp Pulse Resp B/P (MAP) Pulse Ox O2 Delivery O2 Flow Rate FiO2 01/13/19 04:00 97.0 84 19 152/107 (122) 98 01/13/19 04:00 82 01/13/19 04:00 Room Air 01/13/19 00:00 97.0 99 20 145/103 (117) 97 01/13/19 00:00 Room Air 01/12/19 21:01 98 Room Air 21 01/12/19 20:18 Room Air 01/12/19 20:00 100 01/12/19 19:52 97.9 101 16 142/94 (110) 97 01/12/19 18:18 98.6 99 19 137/79 (98) 98 01/12/19 16:00 98.6 99 19 137/79 (98) 98 01/12/19 16:00 Room Air 01/12/19 16:00 121 01/12/19 12:34 98.2 116 21 146/75 (98) 01/12/19 12:00 Room Air 01/12/19 12:00 129 01/12/19 08:12 98.1 98 20 144/98 (113) 97 01/12/19 08:00 Room Air 01/12/19 08:00 98 Intake and Output 01/12/19 01/13/19 18:59 06:59 Intake Total 1701.0 ml 2133.6583 ml Balance 1701.0 ml 2133.6583 ml IV Total 1401.0 ml 1893.6583 ml Other 300 ml 240 ml # Voids 3 3 # Bowel Movements 3 Height (Feet): 5 Height (Inches): 4.00 Weight (Pounds): 112 General Appearance: alert EENT: PERRL/EOMI Neck: supple Cardiovascular: normal rate Respiratory/Chest: lungs clear Abdomen: normal bowel sounds, non tender, soft Extremities: non-tender Eleazar Tristan MD Jan 13, 2019 06:30
[2019-01-13 07:10] LABS: BASOPHILS % (AUTO) 0.6 % (0.0-2.0); EOSINOPHILS % (AUTO) 0.1 % (0.0-3.0); HEMATOCRIT 35.9 % (37.0-47.0); HEMOGLOBIN 11.6 G/DL (12.0-16.0); MEAN CORPUSCULAR VOLUME 94 FL (80-99); NEUTROPHILS % (AUTO) 75.4 % (45.0-75.0); PLATELET COUNT 294 K/UL (150-450); RED BLOOD COUNT 3.82 M/UL (4.20-5.40); RED CELL DISTRIBUTION WIDTH 12.9 % (11.6-14.8); WHITE BLOOD COUNT 8.8 K/UL (4.8-10.8)
--- NOTE | 2019-01-13 07:20 | NUR ---
HAND-OFF: Report given to TONY Fierro.
[2019-01-13 07:35] LABS: ALANINE AMINOTRANSFERASE 23 U/L (12-78); ALBUMIN 2.7 G/DL (3.4-5.0); ALBUMIN/GLOBULIN RATIO 0.6 (1.0-2.7); ALKALINE PHOSPHATASE 56 U/L (46-116); AMYLASE 427 U/L (25-115); ANION GAP 11 mmol/L (5-15); ASPARTATE AMINO TRANSFERASE 21 U/L (15-37); BILIRUBIN,TOTAL 0.2 MG/DL (0.2-1.0); BLOOD UREA NITROGEN 4 mg/dL (7-18); CALCIUM 8.4 MG/DL (8.5-10.1); CARBON DIOXIDE 20 MMOL/L (21-32); CHLORIDE 112 MMOL/L (98-107); CREATININE 0.6 MG/DL (0.55-1.30); POTASSIUM 2.9 MMOL/L (3.5-5.1); SODIUM 143 MMOL/L (136-145)
[2019-01-13 07:56] VITALS: BP 149/82
--- NOTE | 2019-01-13 08:00 | NUR ---
NURSE NOTES: Noted that when patient used restroom, patient noted with enlarged hemorrhoid. When patient returned to bed, hemorrhoid retracted, patient denies pain. Contacted and informed Dr. Tristan, Dr. Tristan acknowledged. No new orders given at this time. Will continue to monitor patient.
[2019-01-13] MEDS: Docusate 100mg cap ORAL SCH ×2 (08:10→18:00)
[2019-01-13] MEDS: Heparin 5000 units/ml inj SUBQ SCH ×2 (08:11→23:07)
[2019-01-13] MEDS: Pantoprazole Inj IVP SCH (09:52)
--- NOTE | 2019-01-13 10:00 | NUR ---
NURSE NOTES: Patient is noted to be anxious. Lorazepam 2 mg IV Q4HR PRN for anxiety already given 2 hours ago. Patient still noted anxious. Contacted and informed Dr. Perdomo regarding situation, Dr. Perdomo acknowledged, continue to monitor at this time. No new orders given. Noted. Will continue to monitor patient. Patient has 1:1 sitter at bedside. Patient kept safe and free of injury at all times.
--- NOTE | 2019-01-13 10:32 | NUR ---
NURSE NOTES: Called and informed Dr. Allison of patient's potassium level today of 2.9, ordered potassium chloride 10 mEq IV x 4. Also notified Dr. Allison of ABG results from 01/10/19, Dr. Allison acknowledged. No new orders given at this time. Orders entered, noted, and carried out. Noted. Will continue to monitor patient.
--- NOTE | 2019-01-13 10:50 | Infectious Diseases Prog Note ---
Assessment/Plan Assessment/Plan A 1. pneumonia 2. pancreatitis 3. leucocytosis improving 4. drug overdose with suicidal attempt 5. 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 ETOH abuse P 1. continue Zosyn 2. will follow up cultures Subjective ROS Limited/Unobtainable: Yes Respiratory: Reports: dry cough Neurologic: Reports: other - unteady gait Allergies: Coded Allergies: Shrimp (Verified Allergy, Unknown, 01/11/19) Stated by patient's mother at bedside Uncoded Allergies: nectarines (Allergy, Unknown, 01/11/19) Stated by patient's mother at bedside peaches (Allergy, Unknown, 01/11/19) Stated by patient's mother at bedside Objective Vital Signs Last 24 Hour Vital Signs Date Time Temp Pulse Resp B/P (MAP) Pulse Ox O2 Delivery O2 Flow Rate FiO2 01/13/19 08:00 Room Air 01/13/19 07:56 97.9 72 19 149/82 (104) 95 01/13/19 04:00 97.0 84 19 152/107 (122) 98 01/13/19 04:00 82 01/13/19 04:00 Room Air 01/13/19 00:00 97.0 99 20 145/103 (117) 97 01/13/19 00:00 Room Air 01/12/19 21:01 98 Room Air 21 01/12/19 20:18 Room Air 01/12/19 20:00 100 01/12/19 19:52 97.9 101 16 142/94 (110) 97 01/12/19 18:18 98.6 99 19 137/79 (98) 98 01/12/19 16:00 98.6 99 19 137/79 (98) 98 01/12/19 16:00 Room Air 01/12/19 16:00 121 01/12/19 12:34 98.2 116 21 146/75 (98) 01/12/19 12:00 Room Air 01/12/19 12:00 129 Height (Feet): 5 Height (Inches): 4.00 Weight (Pounds): 112 General Appearance: no acute distress HEENT: mucous membranes moist Respiratory/Chest: lungs clear Cardiovascular: normal rate Abdomen: soft, non tender Extremities: no edema Neurologic/Psychiatric: alert, responsive Laboratory Tests Test 01/13/19 06:27 White Blood Count 8.8 K/UL (4.8-10.8) Red Blood Count 3.82 M/UL (4.20-5.40) L Hemoglobin 11.6 G/DL (12.0-16.0) L Hematocrit 35.9 % (37.0-47.0) L Mean Corpuscular Volume 94 FL (80-99) Mean Corpuscular Hemoglobin 30.5 PG (27.0-31.0) Mean Corpuscular Hemoglobin Concent 32.5 G/DL (32.0-36.0) Red Cell Distribution Width 12.9 % (11.6-14.8) Platelet Count 294 K/UL (150-450) Mean Platelet Volume 5.4 FL (6.5-10.1) L Neutrophils (%) (Auto) 75.4 % (45.0-75.0) H Lymphocytes (%) (Auto) 12.0 % (20.0-45.0) L Monocytes (%) (Auto) 12.0 % (1.0-10.0) H Eosinophils (%) (Auto) 0.1 % (0.0-3.0) Basophils (%) (Auto) 0.6 % (0.0-2.0) Sodium Level 143 MMOL/L (136-145) Potassium Level 2.9 MMOL/L (3.5-5.1) L Chloride Level 112 MMOL/L (98-107) H Carbon Dioxide Level 20 MMOL/L (21-32) L Anion Gap 11 mmol/L (5-15) Blood Urea Nitrogen 4 mg/dL (7-18) L Creatinine 0.6 MG/DL (0.55-1.30) Estimat Glomerular Filtration Rate > 60 mL/min (>60) Glucose Level 76 MG/DL (74-106) Calcium Level 8.4 MG/DL (8.5-10.1) L Magnesium Level 2.0 MG/DL (1.8-2.4) Total Bilirubin 0.2 MG/DL (0.2-1.0) Aspartate Amino Transf (AST/SGOT) 21 U/L (15-37) Alanine Aminotransferase (ALT/SGPT) 23 U/L (12-78) Alkaline Phosphatase 56 U/L (46-116) Total Protein 6.9 G/DL (6.4-8.2) Albumin 2.7 G/DL (3.4-5.0) L Globulin 4.2 g/dL Albumin/Globulin Ratio 0.6 (1.0-2.7) L Amylase Level 427 U/L (25-115) H Lipase > 2000 U/L (73-393) H Current Medications Medications (Trade) Dose Ordered Sig/Christophe Route PRN Reason Start Time Stop Time Status Last Admin Dose Admin Acetaminophen (Tylenol) 650 mg Q4H PRN ORAL Mild Pain/Temp > 100.5 01/11/19 13:30 02/08/19 01:29 Al Hydroxide/Mg Hydroxide (Mylanta) 30 ml Q4H PRN ORAL Constipation 01/11/19 14:30 02/10/19 14:29 Barium Sulfate (Readi-Cat 2) 450 ml NOW PRN ORAL Radiology Procedure 01/12/19 08:45 01/14/19 08:39 Bisacodyl (Dulcolax) 5 mg DAILYPRN PRN ORAL Constipation 01/11/19 20:15 02/10/19 20:14 01/13/19 00:42 Chlordiazepoxide (Librium) 50 mg Q8HR ORAL 01/11/19 22:00 01/18/19 21:59 01/13/19 05:29 Docusate Sodium (Colace) 100 mg TWICE A DAY ORAL 01/12/19 09:00 02/11/19 08:59 01/12/19 17:04 Folic Acid 1 mg/ Magnesium Sulfate 2000 mg/ Multivitamins 10 ml/Sodium Chloride 1,014.2 ml @ 125 mls/ hr Q24H IV 01/12/19 18:00 02/11/19 17:59 01/12/19 17:04 Heparin Sodium (Porcine) (Heparin 5000 units/ml) 5,000 units EVERY 12 HOURS SUBQ 01/11/19 21:00 02/08/19 08:59 01/12/19 20:45 Iopamidol (Isovue-300 100ml) 100 ml NOW PRN INJ Radiology Procedure 01/12/19 08:45 Iron Sucrose 100 mg/Sodium Chloride 60 ml @ 240 mls/hr BEDTIME IV 01/11/19 21:00 01/15/19 21:14 01/12/19 20:34 Lorazepam (Ativan 2mg/ml 1ml) 2 mg Q4H PRN IV For Anxiety 01/11/19 14:30 01/17/19 14:29 01/13/19 08:10 Morphine Sulfate (Morphine Sulfate) 1 mg Q2H PRN IVP Severe Pain (Pain Scale 7-10) 01/11/19 13:45 01/18/19 03:37 01/13/19 03:56 Pantoprazole (Protonix) 40 mg DAILY IVP 01/12/19 09:00 02/09/19 09:48 01/13/19 09:52 Piperacillin Sod/ Tazobactam Sod 3.375 gm/Sodium Chloride 110 ml @ 27.5 mls/hr Q8HR IVPB 01/11/19 15:00 01/17/19 14:59 01/13/19 05:12 Polyethylene Glycol (Miralax) 17 gm BEDTIME ORAL 01/12/19 21:00 02/11/19 20:59 01/12/19 20:34 Potassium Chloride 100 ml @ 100 mls/hr Q1H IVPB 01/13/19 10:30 01/13/19 14:29 01/13/19 10:38 Racepinephrine (S2) 0.5 ml Q4H PRN HHN Shortness of Breath 01/11/19 15:00 02/10/19 14:59 Risperidone (RisperDAL) 1 mg BEDTIME ORAL 01/11/19 21:00 02/10/19 20:59 01/12/19 20:34 Sodium Chloride 1,000 ml @ 100 mls/hr Q10H IV 01/11/19 14:30 02/08/19 14:29 01/13/19 05:31 Thiamine HCl 100 mg/Dextrose 56 ml @ 112 mls/hr Q24H IVPB 01/12/19 18:00 02/11/19 17:59 01/12/19 17:30 Adam Frausto MD Jan 13, 2019 10:50
[2019-01-13 12:00] VITALS: BP 141/99
--- NOTE | 2019-01-13 14:08 | Pulmonolgy Critical Care Note ---
Critical Care - Asmt/Plan Assessment/Plan: Pulmonary CCM Progress Note Assessment/Plan drug overdose respiratory failure acute - now extubated leukocytosis anemia metabolic acidosis severe protein calorie malnutrition pancreatitis PLAN Psychiatry following support as able IV hydration DVT prophylaxis monitor labs surgical follow up noted critical medications/laboratory data/nursing notes/ICU care reviewed in detail note reviewed and edited care discussed with RN and RT Interval Events: t events noted ROS Limited/Unobtainable: Yes Condition: critical EKG Rhythm: Sinus Rhythm Objective Vital Signs Noted Labs noted Objective: WDWN clear breath sounds bilaterally without rhonchi or wheeze [id number] without MRG NABS nontender no HSM no CCE Alert, interactive Critical Care - Objective Last 24 Hour Vital Signs Date Time Temp Pulse Resp B/P (MAP) Pulse Ox O2 Delivery O2 Flow Rate FiO2 01/13/19 12:00 97.5 88 18 141/99 (113) 98 01/13/19 12:00 92 01/13/19 12:00 Room Air 01/13/19 08:00 Room Air 01/13/19 08:00 76 01/13/19 07:56 97.9 72 19 149/82 (104) 95 01/13/19 04:00 97.0 84 19 152/107 (122) 98 01/13/19 04:00 82 01/13/19 04:00 Room Air 01/13/19 00:00 97.0 99 20 145/103 (117) 97 01/13/19 00:00 Room Air 01/12/19 21:01 98 Room Air 21 01/12/19 20:18 Room Air 01/12/19 20:00 100 01/12/19 19:52 97.9 101 16 142/94 (110) 97 01/12/19 18:18 98.6 99 19 137/79 (98) 98 01/12/19 16:00 98.6 99 19 137/79 (98) 98 01/12/19 16:00 Room Air 01/12/19 16:00 121 Critical Care - Subjective ROS Limited/Unobtainable: No Condition: improving FI02: 21 Vent Support Breath Rate: 20 Vent Support Mode: AC Vent Tidal Volume: 420 Sputum Amount: None PEEP: 5.0 PIP: 21 I&O: Intake and Output 01/12/19 01/13/19 19:00 07:00 Intake Total 1701.0 ml 2203.9913 ml Balance 1701.0 ml 2203.9913 ml IV Total 1401.0 ml 1963.9913 ml Other 300 ml 240 ml # Voids 3 3 # Bowel Movements 3 ET-Tube: 7.5 ET Position: 22 Jean Pierre Allison MD Jan 13, 2019 14:08
--- NOTE | 2019-01-13 14:29 | NUR ---
NURSE NOTES: Dr. Perdomo called back this nurse at nurse station regarding patient's situation with CT scan of abdomen, regarding to patient unable to remain still for procedure. Dr. Perdomo acknowledged, ordered Lorazepam 2 mg IM x one [address] scan and Benadryl 50 mg IM x one [address] scan for tomorrow AM. Orders entered and noted. This nurse informed CT personnel of plan, CT personnel acknowledged and will inform CT personnel for tomorrow AM. Noted. Charge nurse made aware. Will continue to monitor patient.
[2019-01-13] MEDS ORDERED: NS 275ml ONE (15:39)
[2019-01-13 16:00] VITALS: BP 134/92
--- NOTE | 2019-01-13 18:08 | NUR ---
CASE MANAGEMENT: REVIEW SI: DRUG OVERDOSE . RESP FAILURE . ACUTE ENCEPHALOPATHY T 96.8 HR 99 RR 19 BP 152/107 SAT 97% ROOM AIR H/H 11.6/35.9 K 2.9 ALBUMIN 2.7 AMYLASE 427 LIPASE >2000 IS: BANANA BAG IV Q24 THIAMINE IV Q24HR LIBRIUM PO Q8HR VENOFER IV QHS ZOSYN IV Q8HR NS IVF @ 100ML/HR ATIVAN IV Q4HR PRN FULL LIQUID PO DIET PATIENT ADMITTED TO STEP DOWN UNIT 01/11/2019 DCP: PATIENT IS FROM HOME
[2019-01-13] MEDS: Thiamine HCl 100 MG in D5W 55 ML IVPB SCH (18:34)
[2019-01-13] MEDS: Folic Acid 1 MG, Magnesium Sulfate 2,000 MG, Multivitamin - 12 Injection 10 ML in Sodiu... IV SCH (19:14)
--- NOTE | 2019-01-13 19:25 | NUR ---
NURSE NOTES: Endorsed to night nurse, patient is NPO at midnight for CT abdomen tomorrow AM. Noted.
--- NOTE | 2019-01-13 19:30 | NUR ---
HAND-OFF: Report given to TONY Orellana.
[2019-01-13 20:00] VITALS: BP 120/90
--- NOTE | 2019-01-13 20:38 | Surgery Progress Note ---
Surgery Progress Note Subjective Additional Comments late entry. leukocytosis resolved. h/h noted. lft's okay. lipase and amylase cont to remain elevated and trending up after downtrend. appreciate psych input Objective Last 24 Hour Vital Signs Date Time Temp Pulse Resp B/P (MAP) Pulse Ox O2 Delivery O2 Flow Rate FiO2 01/13/19 16:00 96.8 82 18 134/92 (106) 98 01/13/19 16:00 Room Air 01/13/19 15:30 82 01/13/19 12:00 97.5 88 18 141/99 (113) 98 01/13/19 12:00 92 01/13/19 12:00 Room Air 01/13/19 08:00 Room Air 01/13/19 08:00 76 01/13/19 07:56 97.9 72 19 149/82 (104) 95 01/13/19 04:00 97.0 84 19 152/107 (122) 98 01/13/19 04:00 82 01/13/19 04:00 Room Air 01/13/19 00:00 97.0 99 20 145/103 (117) 97 01/13/19 00:00 Room Air 01/12/19 21:01 98 Room Air 21 I&O Intake and Output 01/12/19 01/13/19 19:00 07:00 Intake Total 1701.0 ml 2203.9913 ml Balance 1701.0 ml 2203.9913 ml IV Total 1401.0 ml 1963.9913 ml Other 300 ml 240 ml # Voids 3 3 # Bowel Movements 3 Cardiovascular: RSR Respiratory: clear Abdomen: soft, flat, non-tender, present bowel sounds, non-distended Extremities: no edema, no tenderness, no cyanosis Laboratory Tests Test 01/13/19 06:27 White Blood Count 8.8 K/UL (4.8-10.8) Red Blood Count 3.82 M/UL (4.20-5.40) L Hemoglobin 11.6 G/DL (12.0-16.0) L Hematocrit 35.9 % (37.0-47.0) L Mean Corpuscular Volume 94 FL (80-99) Mean Corpuscular Hemoglobin 30.5 PG (27.0-31.0) Mean Corpuscular Hemoglobin Concent 32.5 G/DL (32.0-36.0) Red Cell Distribution Width 12.9 % (11.6-14.8) Platelet Count 294 K/UL (150-450) Mean Platelet Volume 5.4 FL (6.5-10.1) L Neutrophils (%) (Auto) 75.4 % (45.0-75.0) H Lymphocytes (%) (Auto) 12.0 % (20.0-45.0) L Monocytes (%) (Auto) 12.0 % (1.0-10.0) H Eosinophils (%) (Auto) 0.1 % (0.0-3.0) Basophils (%) (Auto) 0.6 % (0.0-2.0) Sodium Level 143 MMOL/L (136-145) Potassium Level 2.9 MMOL/L (3.5-5.1) L Chloride Level 112 MMOL/L (98-107) H Carbon Dioxide Level 20 MMOL/L (21-32) L Anion Gap 11 mmol/L (5-15) Blood Urea Nitrogen 4 mg/dL (7-18) L Creatinine 0.6 MG/DL (0.55-1.30) Estimat Glomerular Filtration Rate > 60 mL/min (>60) Glucose Level 76 MG/DL (74-106) Calcium Level 8.4 MG/DL (8.5-10.1) L Magnesium Level 2.0 MG/DL (1.8-2.4) Total Bilirubin 0.2 MG/DL (0.2-1.0) Aspartate Amino Transf (AST/SGOT) 21 U/L (15-37) Alanine Aminotransferase (ALT/SGPT) 23 U/L (12-78) Alkaline Phosphatase 56 U/L (46-116) Total Protein 6.9 G/DL (6.4-8.2) Albumin 2.7 G/DL (3.4-5.0) L Globulin 4.2 g/dL Albumin/Globulin Ratio 0.6 (1.0-2.7) L Amylase Level 427 U/L (25-115) H Lipase > 2000 U/L (73-393) H Plan Problems: (1) Leukocytosis Assessment & Plan: Leukocytosis likely due to stress reaction. - resolved Lactic acidosis resolved Labs noted Continue trend labs (2) Drug overdose (3) Respiratory failure (4) Lactic acid acidosis (5) Altered mental status, unspecified (6) Deep tissue injury Assessment & Plan: Pt presented on admission with multiple pressure injuries.Non-blanching erythema without induration/fluctuance medial R elbow. DTPI L elbow.Base of wound maroon and indurated.(L)0.9cm x (W)0.8cm. An area of non-blanchable erythema without induration/fluctuance medial L elbow. DTPI sacrococcygeal area. base of wound indurated -purple with surrounding red tinged borders. (L)1cm x (W)1cm. DTPI L buttocks. base of wound maroon,indurated with irregular shaped borders that are red . Periwound is pink and blanchable. (L)4.2cm x (W)3.5cm. Non-blanchable erythema that is indurated at base of wound L buttocks (L)4.5cm x (W)5cm.Periwound pink and blanchable. Non-blanchable erythema without induration or fluctuance L heel. Non-blanchable erythema without induration or fluctuance L lateral Malleolus. Non-blanchable erythema without induration /fluctuance R heel. Tx.Plan: Apply Moisture Barrier paste to sacrococcygeal area, R and L buttocks. Apply Cavilon periwound. Cover with Optifoam drsgs. Change every 3 days and prn. Apply Cavilon Skin Barrier to R and L elbows. Cover each site with Optifoam drsg. Change every 7 days and prn. Apply Cavilon Skin Barrier to R and L heels. Cover each heel with Optifoam drsg. Change every 7 days and prn. APM/MEL Mattress overlay. Reposition at lease every 2 hours or as tolerated. Off-load heels with pillow. (7) Pancreatitis Assessment & Plan: Impression: No gallstones demonstrated. However, there is gallbladder wall thickening. Possible etiologies are reactive thickening from adjacent hepatic inflammation, edema from systemic causes. Acalculus acute cholecystitis or acute cholecystitis from a sonographically occult stone also possibilities, and hepatobiliary nuclear scan could be considered if there is high clinical suspicion for such likely medication related IV hydration I&O lipase elevated no pain trend labs will consider CT if continues to trend up. ? cyst Benyamini,Romero Jan 13, 2019 20:38
[2019-01-13] MEDS: Iron Sucrose 100 MG in NS 55 ML IV SCH (23:06)
[2019-01-13] MEDS: Miralax 17gm pkt ORAL SCH (23:08)
[2019-01-14] VITALS: BP 124/87
[2019-01-14 04:00] VITALS: BP 143/93
--- NOTE | 2019-01-14 04:12 | NUR ---
HAND-OFF: Report given to Kavon JIMENEZ.
[2019-01-14] MEDS ORDERED: DiphenhydrAMINE 50mg/ml Inj IM SCH (04:15)
[2019-01-14] MEDS ORDERED: LORazepam Inj 2mg/ml 1ml IM SCH (04:15)
[2019-01-14] MEDS ORDERED: Bisacodyl EC 5mg tab ORAL PRN (04:30)
[2019-01-14] MEDS ORDERED: LORazepam Inj 2mg/ml 1ml IV PRN (04:30)
[2019-01-14] MEDS: Piperacillin/Tazobactam 3.375 GM in NS 110 ML IVPB SCH ×3 (05:09→22:41)
[2019-01-14 05:22] LABS: BASOPHILS % (AUTO) 0.5 % (0.0-2.0); EOSINOPHILS % (AUTO) 1.4 % (0.0-3.0); HEMATOCRIT 35.4 % (37.0-47.0); HEMOGLOBIN 11.7 G/DL (12.0-16.0); LYMPHOCYTES % (AUTO) 21.3 % (20.0-45.0); MEAN CORPUSCULAR VOLUME 92 FL (80-99); MONOCYTES % (AUTO) 12.5 % (1.0-10.0); NEUTROPHILS % (AUTO) 64.4 % (45.0-75.0); PLATELET COUNT 326 K/UL (150-450); RED BLOOD COUNT 3.83 M/UL (4.20-5.40); RED CELL DISTRIBUTION WIDTH 12.5 % (11.6-14.8); WHITE BLOOD COUNT 8.6 K/UL (4.8-10.8)
--- NOTE | 2019-01-14 05:30 | NUR ---
NURSE NOTES: Patient in bed, awake, confused. Sitter is at bedside. Kept clean and comfortable. Report was given by Esteban. All belongings with patient. Pictures taken. Abdomen is soft and non distended. Call light is at bedside. Reorientation was given to the patient. Will continue plan of care.
[2019-01-14] MEDS ORDERED: Morphine Sulfate 2mg/ml Inj(IV/IM USE ONLY) IVP PRN (05:45)
[2019-01-14 05:49] LABS: ALANINE AMINOTRANSFERASE 19 U/L (12-78); ALBUMIN 2.7 G/DL (3.4-5.0); ALBUMIN/GLOBULIN RATIO 0.8 (1.0-2.7); ALKALINE PHOSPHATASE 60 U/L (46-116); AMYLASE 379 U/L (25-115); ANION GAP 10 mmol/L (5-15); ASPARTATE AMINO TRANSFERASE 24 U/L (15-37); BILIRUBIN,TOTAL 0.4 MG/DL (0.2-1.0); BLOOD UREA NITROGEN 1 mg/dL (7-18); CALCIUM 8.5 MG/DL (8.5-10.1); CARBON DIOXIDE 22 MMOL/L (21-32); CHLORIDE 108 MMOL/L (98-107); CREATININE 0.5 MG/DL (0.55-1.30); SODIUM 140 MMOL/L (136-145)
[2019-01-14] MEDS: chlordiazePOXIDE 25mg Cap ORAL SCH ×3 (05:56→22:41)
[2019-01-14 06:01] LABS: POTASSIUM 2.7 MMOL/L (3.5-5.1)
[2019-01-14] MEDS ORDERED: DiphenhydrAMINE 50mg/ml Inj IM PRN ×2 (07:00)
[2019-01-14] MEDS ORDERED: Racemic EPINEPHrine 2.25% 0.5ml HHN PRN (07:00)
[2019-01-14] MEDS ORDERED: LORazepam Inj 2mg/ml 1ml IM PRN ×2 (07:00)
--- NOTE | 2019-01-14 07:27 | NUR ---
HAND-OFF: Report given to TONY Shah.
--- NOTE | 2019-01-14 07:52 | NUR ---
NURSE NOTES: . +--+ mbcasdh [\tient received restingi n bed. dffffffffffffffx
--- NOTE | 2019-01-14 07:56 | NUR ---
NURSE NOTES: Patient received sleeping in bed, breathing unlabored on room air. No signs of respiratory distress or pain observed. IV site on left hand patent and intact, running fluids and Zosyn. Currently NPO for upcoming procedure. Bed locked in lowest position, bed alarm on. HOB elevated. Will continue to monitor. Sitter by the bedside.
[2019-01-14 08:00] VITALS: BP 138/91
--- NOTE | 2019-01-14 08:26 | Critical Care Progress Note ---
Assessment/Plan Assessment/Plan drug overdose respiratory failure acute leukocytosis anemia metabolic acidosis severe protein calorie malnutrition pancreatitis pneumonia low K PLAN support as able IV hydration DVT prophylaxis ID eval; antibiotics repeat cxr psych clearance impression, plan, and exam edited and reviewed in detail care discussed with steel erector - Subjective Condition: stable EKG Rhythm: Sinus Rhythm I&O: Intake and Output 01/13/19 01/14/19 19:00 07:00 Intake Total 556 ml 615 ml Balance 556 ml 615 ml Intake Oral 500 ml 240 ml IV Total 56 ml 375 ml # Voids 4 7 # Bowel Movements 4 7 Critical Care - Objective ET-Tube: 7.5 ET Position: 22 Last 24 Hour Vital Signs Date Time Temp Pulse Resp B/P (MAP) Pulse Ox O2 Delivery O2 Flow Rate FiO2 01/14/19 04:00 Room Air 01/14/19 04:00 97.3 87 18 143/93 (110) 99 01/14/19 00:00 89 01/14/19 00:00 Room Air 01/14/19 00:00 97.0 72 18 124/87 (99) 97 01/13/19 20:00 Room Air 01/13/19 20:00 97 01/13/19 20:00 97.5 89 18 120/90 (100) 98 01/13/19 16:00 96.8 82 18 134/92 (106) 98 01/13/19 16:00 Room Air 01/13/19 15:30 82 01/13/19 12:00 97.5 88 18 141/99 (113) 98 01/13/19 12:00 92 01/13/19 12:00 Room Air Labs: Labs Test 01/12/19 05:39 01/13/19 06:27 01/14/19 03:20 White Blood Count 11.8 K/UL (4.8-10.8) 8.8 K/UL (4.8-10.8) 8.6 K/UL (4.8-10.8) Red Blood Count 4.33 M/UL (4.20-5.40) 3.82 M/UL (4.20-5.40) 3.83 M/UL (4.20-5.40) Hemoglobin 13.2 G/DL (12.0-16.0) 11.6 G/DL (12.0-16.0) 11.7 G/DL (12.0-16.0) Hematocrit 40.2 % (37.0-47.0) 35.9 % (37.0-47.0) 35.4 % (37.0-47.0) Mean Corpuscular Volume 93 FL (80-99) 94 FL (80-99) 92 FL (80-99) Mean Corpuscular Hemoglobin 30.6 PG (27.0-31.0) 30.5 PG (27.0-31.0) 30.4 PG (27.0-31.0) Mean Corpuscular Hemoglobin Concent 32.9 G/DL (32.0-36.0) 32.5 G/DL (32.0-36.0) 32.9 G/DL (32.0-36.0) Red Cell Distribution Width 12.7 % (11.6-14.8) 12.9 % (11.6-14.8) 12.5 % (11.6-14.8) Platelet Count 295 K/UL (150-450) 294 K/UL (150-450) 326 K/UL (150-450) Mean Platelet Volume 5.8 FL (6.5-10.1) 5.4 FL (6.5-10.1) 5.5 FL (6.5-10.1) Neutrophils (%) (Auto) % (45.0-75.0) 75.4 % (45.0-75.0) 64.4 % (45.0-75.0) Lymphocytes (%) (Auto) % (20.0-45.0) 12.0 % (20.0-45.0) 21.3 % (20.0-45.0) Monocytes (%) (Auto) % (1.0-10.0) 12.0 % (1.0-10.0) 12.5 % (1.0-10.0) Eosinophils (%) (Auto) % (0.0-3.0) 0.1 % (0.0-3.0) 1.4 % (0.0-3.0) Basophils (%) (Auto) % (0.0-2.0) 0.6 % (0.0-2.0) 0.5 % (0.0-2.0) Differential Total Cells Counted 100 Neutrophils % (Manual) 91 % (45-75) Lymphocytes % (Manual) 5 % (20-45) Monocytes % (Manual) 4 % (1-10) Eosinophils % (Manual) 0 % (0-3) Basophils % (Manual) 0 % (0-2) Band Neutrophils 0 % (0-8) Platelet Estimate Adequate Platelet Morphology Normal Red Blood Cell Morphology Normal Sodium Level 138 MMOL/L (136-145) 143 MMOL/L (136-145) 140 MMOL/L (136-145) Potassium Level 2.9 MMOL/L (3.5-5.1) 2.9 MMOL/L (3.5-5.1) 2.7 MMOL/L (3.5-5.1) Chloride Level 108 MMOL/L (98-107) 112 MMOL/L (98-107) 108 MMOL/L (98-107) Carbon Dioxide Level 19 MMOL/L (21-32) 20 MMOL/L (21-32) 22 MMOL/L (21-32) Anion Gap 11 mmol/L (5-15) 11 mmol/L (5-15) 10 mmol/L (5-15) Blood Urea Nitrogen 10 mg/dL (7-18) 4 mg/dL (7-18) 1 mg/dL (7-18) Creatinine 0.6 MG/DL (0.55-1.30) 0.6 MG/DL (0.55-1.30) 0.5 MG/DL (0.55-1.30) Estimat Glomerular Filtration Rate > 60 mL/min (>60) > 60 mL/min (>60) > 60 mL/min (>60) Glucose Level 81 MG/DL (74-106) 76 MG/DL (74-106) 67 MG/DL (74-106) Calcium Level 7.8 MG/DL (8.5-10.1) 8.4 MG/DL (8.5-10.1) 8.5 MG/DL (8.5-10.1) Amylase Level 297 U/L (25-115) 427 U/L (25-115) 379 U/L (25-115) Lipase > 2000 U/L (73-393) > 2000 U/L (73-393) > 2000 U/L (73-393) Magnesium Level 2.0 MG/DL (1.8-2.4) Total Bilirubin 0.2 MG/DL (0.2-1.0) 0.4 MG/DL (0.2-1.0) Aspartate Amino Transf (AST/SGOT) 21 U/L (15-37) 24 U/L (15-37) Alanine Aminotransferase (ALT/SGPT) 23 U/L (12-78) 19 U/L (12-78) Alkaline Phosphatase 56 U/L (46-116) 60 U/L (46-116) Total Protein 6.9 G/DL (6.4-8.2) 6.0 G/DL (6.4-8.2) Albumin 2.7 G/DL (3.4-5.0) 2.7 G/DL (3.4-5.0) Globulin 4.2 g/dL 3.3 g/dL Albumin/Globulin Ratio 0.6 (1.0-2.7) 0.8 (1.0-2.7) Erythrocyte Sedimentation Rate 44 MM/HR (0-20) C-Reactive Protein, Quantitative 4.9 mg/dL (0.00-0.90) Objective: WDWN awake clear breath sounds bilaterally without rhonchi or wheeze [id number] without MRG NABS nontender no HSM no CCE Justus Larsen MD Jan 14, 2019 08:26
[2019-01-14] MEDS: Docusate 100mg cap ORAL SCH ×2 (08:40→18:10)
[2019-01-14] MEDS: Pantoprazole Inj IVP SCH (08:40)
[2019-01-14] MEDS ORDERED: Isovue-300 100ml vial INJ PRN (08:45)
[2019-01-14] MEDS: Heparin 5000 units/ml inj SUBQ SCH ×2 (09:00→20:49)
[2019-01-14] MEDS: Bactrim-DS 1 tab ORAL SCH ×2 (10:01→20:46)
--- NOTE | 2019-01-14 11:15 | Infectious Diseases Prog Note ---
Assessment/Plan Assessment/Plan antibiotics : zosyn, bactrim A 1. pneumonia 2. pancreatitis 3. leucocytosis improving 4. drug overdose with suicidal attempt 5. klebsiella UTI 6. right arm thrombophlebitis P 1. continue zosyn 2. bactrim started 3. will follow up cultures Subjective Constitutional: Denies: fever, chills Respiratory: Denies: shortness of breath, dry cough Gastrointestinal/Abdominal: Denies: nausea, vomiting, diarrhea Musculoskeletal: Reports: pain - right wrist Allergies: Coded Allergies: Shrimp (Verified Allergy, Unknown, 01/11/19) Stated by patient's mother at bedside Uncoded Allergies: nectarines (Allergy, Unknown, 01/11/19) Stated by patient's mother at bedside peaches (Allergy, Unknown, 01/11/19) Stated by patient's mother at bedside Objective Vital Signs Last 24 Hour Vital Signs Date Time Temp Pulse Resp B/P (MAP) Pulse Ox O2 Delivery O2 Flow Rate FiO2 01/14/19 09:00 Room Air 01/14/19 08:00 97.0 84 18 138/91 (107) 99 01/14/19 04:00 Room Air 01/14/19 04:00 97.3 87 18 143/93 (110) 99 01/14/19 00:00 89 01/14/19 00:00 Room Air 01/14/19 00:00 97.0 72 18 124/87 (99) 97 01/13/19 20:00 Room Air 01/13/19 20:00 97 01/13/19 20:00 97.5 89 18 120/90 (100) 98 01/13/19 16:00 96.8 82 18 134/92 (106) 98 01/13/19 16:00 Room Air 01/13/19 15:30 82 01/13/19 12:00 97.5 88 18 141/99 (113) 98 01/13/19 12:00 92 01/13/19 12:00 Room Air Height (Feet): 5 Height (Inches): 4.00 Weight (Pounds): 111 Respiratory/Chest: lungs clear Cardiovascular: normal rate, regular rhythm, no gallop/murmur Abdomen: soft, non tender Extremities: no edema - right wrist erythema Laboratory Tests Test 01/14/19 03:20 White Blood Count 8.6 K/UL (4.8-10.8) Red Blood Count 3.83 M/UL (4.20-5.40) L Hemoglobin 11.7 G/DL (12.0-16.0) L Hematocrit 35.4 % (37.0-47.0) L Mean Corpuscular Volume 92 FL (80-99) Mean Corpuscular Hemoglobin 30.4 PG (27.0-31.0) Mean Corpuscular Hemoglobin Concent 32.9 G/DL (32.0-36.0) Red Cell Distribution Width 12.5 % (11.6-14.8) Platelet Count 326 K/UL (150-450) Mean Platelet Volume 5.5 FL (6.5-10.1) L Neutrophils (%) (Auto) 64.4 % (45.0-75.0) Lymphocytes (%) (Auto) 21.3 % (20.0-45.0) Monocytes (%) (Auto) 12.5 % (1.0-10.0) H Eosinophils (%) (Auto) 1.4 % (0.0-3.0) Basophils (%) (Auto) 0.5 % (0.0-2.0) Erythrocyte Sedimentation Rate 44 MM/HR (0-20) H Sodium Level 140 MMOL/L (136-145) Potassium Level 2.7 MMOL/L (3.5-5.1) *L Chloride Level 108 MMOL/L (98-107) H Carbon Dioxide Level 22 MMOL/L (21-32) Anion Gap 10 mmol/L (5-15) Blood Urea Nitrogen 1 mg/dL (7-18) L Creatinine 0.5 MG/DL (0.55-1.30) L Estimat Glomerular Filtration Rate > 60 mL/min (>60) Glucose Level 67 MG/DL (74-106) L Calcium Level 8.5 MG/DL (8.5-10.1) Total Bilirubin 0.4 MG/DL (0.2-1.0) Aspartate Amino Transf (AST/SGOT) 24 U/L (15-37) Alanine Aminotransferase (ALT/SGPT) 19 U/L (12-78) Alkaline Phosphatase 60 U/L (46-116) C-Reactive Protein, Quantitative 4.9 mg/dL (0.00-0.90) H Total Protein 6.0 G/DL (6.4-8.2) L Albumin 2.7 G/DL (3.4-5.0) L Globulin 3.3 g/dL Albumin/Globulin Ratio 0.8 (1.0-2.7) L Amylase Level 379 U/L (25-115) H Lipase > 2000 U/L (73-393) H Current Medications Medications (Trade) Dose Ordered Sig/Christophe Route PRN Reason Start Time Stop Time Status Last Admin Dose Admin Acetaminophen (Tylenol) 650 mg Q4H PRN ORAL Mild Pain/Temp > 100.5 01/14/19 05:30 02/08/19 01:29 Al Hydroxide/Mg Hydroxide (Mylanta) 30 ml Q4H PRN ORAL Constipation 01/14/19 06:30 02/10/19 14:29 Bisacodyl (Dulcolax) 5 mg DAILYPRN PRN ORAL Constipation 01/14/19 04:30 02/10/19 04:29 Chlordiazepoxide (Librium) 50 mg Q8HR ORAL 01/14/19 06:00 01/18/19 21:59 01/14/19 05:56 Diphenhydramine HCl (Benadryl) 50 mg ONCE PRN IM prior to CT scan 01/14/19 07:00 01/14/19 23:59 Docusate Sodium (Colace) 100 mg TWICE A DAY ORAL 01/14/19 09:00 02/11/19 08:59 01/14/19 08:40 Folic Acid 1 mg/ Magnesium Sulfate 2000 mg/ Multivitamins 10 ml/Sodium Chloride 1,014.2 ml @ 125 mls/ hr Q24H IV 01/14/19 18:00 02/11/19 17:59 Heparin Sodium (Porcine) (Heparin 5000 units/ml) 5,000 units EVERY 12 HOURS SUBQ 01/14/19 09:00 02/08/19 08:59 01/14/19 09:00 Iron Sucrose 100 mg/Sodium Chloride 60 ml @ 240 mls/hr BEDTIME IV 01/14/19 21:00 01/15/19 21:14 Lorazepam (Ativan 2mg/ml 1ml) 2 mg ONCE PRN IM prior to CT scan 01/14/19 07:00 01/14/19 23:59 Lorazepam (Ativan 2mg/ml 1ml) 2 mg Q4H PRN IV For Anxiety 01/14/19 04:30 01/17/19 04:29 Morphine Sulfate (Morphine Sulfate) 1 mg Q2H PRN IVP Severe Pain (Pain Scale 7-10) 01/14/19 05:45 01/18/19 03:37 Pantoprazole (Protonix) 40 mg DAILY IVP 01/14/19 09:00 02/09/19 09:48 01/14/19 08:40 Piperacillin Sod/ Tazobactam Sod 3.375 gm/Sodium Chloride 110 ml @ 27.5 mls/hr Q8HR IVPB 01/14/19 06:00 01/17/19 14:59 01/14/19 05:09 Polyethylene Glycol (Miralax) 17 gm BEDTIME ORAL 01/14/19 21:00 02/11/19 20:59 Potassium Chloride (K-Dur) 40 meq ONCE ORAL 01/14/19 13:00 01/14/19 14:00 Racepinephrine (S2) 0.5 ml Q4H PRN HHN Shortness of Breath 01/14/19 07:00 02/10/19 14:59 Risperidone (RisperDAL) 1 mg BEDTIME ORAL 01/14/19 21:00 02/10/19 20:59 Sodium Chloride 1,000 ml @ 100 mls/hr Q10H IV 01/14/19 04:15 02/08/19 14:29 01/14/19 04:15 Thiamine HCl 100 mg/Dextrose 56 ml @ 112 mls/hr Q24H IVPB 01/14/19 18:00 02/11/19 17:59 Trimethoprim/ Sulfamethoxazole (Bactrim-DS) 1 tab Q12HR ORAL 01/14/19 09:45 01/21/19 09:44 01/14/19 10:01 Anita Gustafson MD Jan 14, 2019 11:15
--- NOTE | 2019-01-14 11:39 | GI Progress Note ---
Assessment/Plan Problems: (1) Anemia ICD Codes: D64.9 - Anemia, unspecified SNOMED: 762268766 (2) Pancreatitis ICD Codes: K85.90 - Acute pancreatitis without necrosis or infection, unspecified SNOMED: 48583242 (3) Drug overdose ICD Codes: T50.901A - Poisoning by unspecified drugs, medicaments and biological substances, accidental (unintentional), initial encounter SNOMED: 24973283 (4) Altered mental status, unspecified ICD Codes: R41.82 - Altered mental status, unspecified SNOMED: 568066964 Status: stable Status Narrative Discussed with Dr. Tristan. Assessment/Plan CT of abd and pelvic to eval for rising amylase and lipase FLD, adv as tolerated iv iron fu labs respiratory care fu psych on colace and miralax, had BM pain control Subjective Gastrointestinal/Abdominal: Reports: no symptoms Objective Last 24 Hour Vital Signs Date Time Temp Pulse Resp B/P (MAP) Pulse Ox O2 Delivery O2 Flow Rate FiO2 01/14/19 09:00 Room Air 01/14/19 08:00 97.0 84 18 138/91 (107) 99 01/14/19 04:00 Room Air 01/14/19 04:00 97.3 87 18 143/93 (110) 99 01/14/19 00:00 89 01/14/19 00:00 Room Air 01/14/19 00:00 97.0 72 18 124/87 (99) 97 01/13/19 20:00 Room Air 01/13/19 20:00 97 01/13/19 20:00 97.5 89 18 120/90 (100) 98 01/13/19 16:00 96.8 82 18 134/92 (106) 98 01/13/19 16:00 Room Air 01/13/19 15:30 82 01/13/19 12:00 97.5 88 18 141/99 (113) 98 01/13/19 12:00 92 01/13/19 12:00 Room Air Intake and Output 01/13/19 01/14/19 18:59 06:59 Intake Total 600 ml 671 ml Balance 600 ml 671 ml Intake Oral 500 ml 240 ml IV Total 100 ml 431 ml # Voids 4 7 # Bowel Movements 4 7 Laboratory Tests Test 01/14/19 03:20 White Blood Count 8.6 K/UL (4.8-10.8) Red Blood Count 3.83 M/UL (4.20-5.40) L Hemoglobin 11.7 G/DL (12.0-16.0) L Hematocrit 35.4 % (37.0-47.0) L Mean Corpuscular Volume 92 FL (80-99) Mean Corpuscular Hemoglobin 30.4 PG (27.0-31.0) Mean Corpuscular Hemoglobin Concent 32.9 G/DL (32.0-36.0) Red Cell Distribution Width 12.5 % (11.6-14.8) Platelet Count 326 K/UL (150-450) Mean Platelet Volume 5.5 FL (6.5-10.1) L Neutrophils (%) (Auto) 64.4 % (45.0-75.0) Lymphocytes (%) (Auto) 21.3 % (20.0-45.0) Monocytes (%) (Auto) 12.5 % (1.0-10.0) H Eosinophils (%) (Auto) 1.4 % (0.0-3.0) Basophils (%) (Auto) 0.5 % (0.0-2.0) Erythrocyte Sedimentation Rate 44 MM/HR (0-20) H Sodium Level 140 MMOL/L (136-145) Potassium Level 2.7 MMOL/L (3.5-5.1) *L Chloride Level 108 MMOL/L (98-107) H Carbon Dioxide Level 22 MMOL/L (21-32) Anion Gap 10 mmol/L (5-15) Blood Urea Nitrogen 1 mg/dL (7-18) L Creatinine 0.5 MG/DL (0.55-1.30) L Estimat Glomerular Filtration Rate > 60 mL/min (>60) Glucose Level 67 MG/DL (74-106) L Calcium Level 8.5 MG/DL (8.5-10.1) Total Bilirubin 0.4 MG/DL (0.2-1.0) Aspartate Amino Transf (AST/SGOT) 24 U/L (15-37) Alanine Aminotransferase (ALT/SGPT) 19 U/L (12-78) Alkaline Phosphatase 60 U/L (46-116) C-Reactive Protein, Quantitative 4.9 mg/dL (0.00-0.90) H Total Protein 6.0 G/DL (6.4-8.2) L Albumin 2.7 G/DL (3.4-5.0) L Globulin 3.3 g/dL Albumin/Globulin Ratio 0.8 (1.0-2.7) L Amylase Level 379 U/L (25-115) H Lipase > 2000 U/L (73-393) H Height (Feet): 5 Height (Inches): 4.00 Weight (Pounds): 111 General Appearance: WD/WN, no apparent distress, alert, thin Cardiovascular: normal rate Respiratory/Chest: normal breath sounds, no respiratory distress Abdominal Exam: normal bowel sounds, non tender, soft Extremities: normal range of motion, non-tender Karen Sal NP Jan 14, 2019 11:39
[2019-01-14 12:00] VITALS: BP 140/90
--- NOTE | 2019-01-14 15:16 | Surgery Progress Note ---
Surgery Progress Note Subjective Additional Comments Patient seen and examined bedside. No acute events. Denies any complaints. States she is feeling better. Family at bedside. Last night her right hand IV infiltrated and caused edema and tenderness to the right hand. States she has good range of motion but hand does hurt upon moving it. Currently has right hand elevated with ice pack. Amylase decreased lipase still elevated does not complain of any abdominal discomfort or symptoms. Objective Last 24 Hour Vital Signs Date Time Temp Pulse Resp B/P (MAP) Pulse Ox O2 Delivery O2 Flow Rate FiO2 01/14/19 12:00 97.0 76 18 140/90 (107) 100 01/14/19 09:00 Room Air 01/14/19 08:00 97.0 84 18 138/91 (107) 99 01/14/19 04:00 Room Air 01/14/19 04:00 97.3 87 18 143/93 (110) 99 01/14/19 00:00 89 01/14/19 00:00 Room Air 01/14/19 00:00 97.0 72 18 124/87 (99) 97 01/13/19 20:00 Room Air 01/13/19 20:00 97 01/13/19 20:00 97.5 89 18 120/90 (100) 98 01/13/19 16:00 96.8 82 18 134/92 (106) 98 01/13/19 16:00 Room Air 01/13/19 15:30 82 I&O Intake and Output 01/13/19 01/14/19 18:59 06:59 Intake Total 600 ml 671 ml Balance 600 ml 671 ml Intake Oral 500 ml 240 ml IV Total 100 ml 431 ml # Voids 4 7 # Bowel Movements 4 7 Dressing: dry Wound: clean Cardiovascular: RSR Respiratory: clear Abdomen: soft, flat, non-tender, present bowel sounds, non-distended Extremities: edema, tenderness, no cyanosis, other - Right hand with edema and tenderness but with range of motion. Good cap refill Laboratory Tests Test 01/14/19 03:20 White Blood Count 8.6 K/UL (4.8-10.8) Red Blood Count 3.83 M/UL (4.20-5.40) L Hemoglobin 11.7 G/DL (12.0-16.0) L Hematocrit 35.4 % (37.0-47.0) L Mean Corpuscular Volume 92 FL (80-99) Mean Corpuscular Hemoglobin 30.4 PG (27.0-31.0) Mean Corpuscular Hemoglobin Concent 32.9 G/DL (32.0-36.0) Red Cell Distribution Width 12.5 % (11.6-14.8) Platelet Count 326 K/UL (150-450) Mean Platelet Volume 5.5 FL (6.5-10.1) L Neutrophils (%) (Auto) 64.4 % (45.0-75.0) Lymphocytes (%) (Auto) 21.3 % (20.0-45.0) Monocytes (%) (Auto) 12.5 % (1.0-10.0) H Eosinophils (%) (Auto) 1.4 % (0.0-3.0) Basophils (%) (Auto) 0.5 % (0.0-2.0) Erythrocyte Sedimentation Rate 44 MM/HR (0-20) H Sodium Level 140 MMOL/L (136-145) Potassium Level 2.7 MMOL/L (3.5-5.1) *L Chloride Level 108 MMOL/L (98-107) H Carbon Dioxide Level 22 MMOL/L (21-32) Anion Gap 10 mmol/L (5-15) Blood Urea Nitrogen 1 mg/dL (7-18) L Creatinine 0.5 MG/DL (0.55-1.30) L Estimat Glomerular Filtration Rate > 60 mL/min (>60) Glucose Level 67 MG/DL (74-106) L Calcium Level 8.5 MG/DL (8.5-10.1) Total Bilirubin 0.4 MG/DL (0.2-1.0) Aspartate Amino Transf (AST/SGOT) 24 U/L (15-37) Alanine Aminotransferase (ALT/SGPT) 19 U/L (12-78) Alkaline Phosphatase 60 U/L (46-116) C-Reactive Protein, Quantitative 4.9 mg/dL (0.00-0.90) H Total Protein 6.0 G/DL (6.4-8.2) L Albumin 2.7 G/DL (3.4-5.0) L Globulin 3.3 g/dL Albumin/Globulin Ratio 0.8 (1.0-2.7) L Amylase Level 379 U/L (25-115) H Lipase > 2000 U/L (73-393) H Plan Problems: (1) Leukocytosis Assessment & Plan: Leukocytosis likely due to stress reaction. - resolved Lactic acidosis resolved Labs noted Continue trend labs (2) Drug overdose (3) Respiratory failure (4) Lactic acid acidosis (5) Altered mental status, unspecified (6) Deep tissue injury Assessment & Plan: Pt presented on admission with multiple pressure injuries.Non-blanching erythema without induration/fluctuance medial R elbow. DTPI L elbow.Base of wound maroon and indurated.(L)0.9cm x (W)0.8cm. An area of non-blanchable erythema without induration/fluctuance medial L elbow. DTPI sacrococcygeal area. base of wound indurated -purple with surrounding red tinged borders. (L)1cm x (W)1cm. DTPI L buttocks. base of wound maroon,indurated with irregular shaped borders that are red . Periwound is pink and blanchable. (L)4.2cm x (W)3.5cm. Non-blanchable erythema that is indurated at base of wound L buttocks (L)4.5cm x (W)5cm.Periwound pink and blanchable. Non-blanchable erythema without induration or fluctuance L heel. Non-blanchable erythema without induration or fluctuance L lateral Malleolus. Non-blanchable erythema without induration /fluctuance R heel. Tx.Plan: Apply Moisture Barrier paste to sacrococcygeal area, R and L buttocks. Apply Cavilon periwound. Cover with Optifoam drsgs. Change every 3 days and prn. Apply Cavilon Skin Barrier to R and L elbows. Cover each site with Optifoam drsg. Change every 7 days and prn. Apply Cavilon Skin Barrier to R and L heels. Cover each heel with Optifoam drsg. Change every 7 days and prn. APM/MEL Mattress overlay. Reposition at lease every 2 hours or as tolerated. Off-load heels with pillow. (7) Pancreatitis Assessment & Plan: Impression: No gallstones demonstrated. However, there is gallbladder wall thickening. Possible etiologies are reactive thickening from adjacent hepatic inflammation, edema from systemic causes. Acalculus acute cholecystitis or acute cholecystitis from a sonographically occult stone also possibilities, and hepatobiliary nuclear scan could be considered if there is high clinical suspicion for such likely medication related IV hydration I&O lipase elevated no pain trend labs will consider CT if continues to trend up. ? cyst Lipase remains elevated amylase trending down we will continue to monitor for now patient remains asymptomatic Additional Comments Keep right hand elevated and ice pack as needed we will monitor Romero Sotomayor Jan 14, 2019 15:16
--- NOTE | 2019-01-14 15:19 | Diagnostic Imaging Report ---
Indication: Abdominal pain Technique: Continuous helical transaxial imaging of the abdomen and pelvis was obtained from the lung bases to the pubic symphysis during intravenous contrast administration. Coronal 2-D reformats were also obtained. Study obtained in a Siemens sensation [address] Automatic Exposure Control was utilized. Total Dose length Product (DLP): 539.[address] Dose Index Volume (CTDIvol): 9.64 mGy Comparison: None Findings: There is posterior basilar atelectasis versus pneumonia associated with trace bilateral pleural effusions. Hiatal hernia is also present. Liver is unremarkable. The gallbladder is nondistended on this exam and not evaluated well. Certainly, evaluation of wall thickening cannot be done with the gallbladder in a contracted state. There are punctate high density foci within the central aspects of both kidneys. These could represent nonobstructive stones but difficult to say whether this is early excretion of contrast into the collecting system as the study was done with IV contrast. Bowel gas pattern is nonobstructive. The colon is distended and there is liquefied stool in the colon. A trace amount of free fluid noted in the pelvis. The urinary bladder is moderately distended. Appendix is not definitely seen. IMPRESSION: Suspected nonobstructive stones within both kidneys. Differential includes excretion of contrast material into the collecting system. Based on the appearance this is felt to be less likely. Trace bilateral pleural effusions and posterior basilar atelectasis versus pneumonia. Hiatal hernia Contracted gallbladder. Evaluation for cholecystitis or wall thickening is limited on this study. No obvious gallstones. Distended urinary bladder Trace pelvic free fluid, which may be physiologic. The CT scanner at [facility] is accredited by the [employer] and the scans are performed using dose optimization techniques as appropriate to a performed exam including Automatic Exposure control.
[2019-01-14 16:00] VITALS: BP 112/74
--- NOTE | 2019-01-14 16:03 | NUR ---
*-* INSURANCE *-* UPDATED CLINICALS AND REVIEWS HAVE BEEN FAXED TO: [facility] AUTH#[id number] FAX ALL CLINICALS TO: [phone]
[2019-01-14] MEDS: Folic Acid 1 MG, Magnesium Sulfate 2,000 MG, Multivitamin - 12 Injection 10 ML in Sodiu... IV SCH (18:10)
[2019-01-14] MEDS: Thiamine HCl 100 MG in D5W 55 ML IVPB SCH (18:43)
--- NOTE | 2019-01-14 19:00 | NUR ---
NURSE NOTES: Patient received A/A /O X3 Confused in bed attempting to pull out her IV line . Patient re orienting Person, Place and Time. talking and destructions work for short period of time . Patient denies any pain at this time . no s/s of distress noted left forearm g#22 IVF infusing well . Right hand edema / tenderness due previous IV line infiltrated and elevated with two pillows . seizure precautions bed side rails padded . no activity of seizures noted at this time. Patient on special bed to prevent skin breakdown . safety/ fall precautions1:1 sitter at bedside (Osmany Anderson ) Call light within reach .Bed in low position at all times . Bed alarm on . will continue to monitor . Addendum: 01/14/19 at 2225 by OSMANY ANDERSON LVN Patient HOB Elevated for comfort .
--- NOTE | 2019-01-14 19:55 | NUR ---
NURSE NOTES: Received report from TONY Overton (Elizabeth). Patient awake. On room air, no signs of distress or labored breathing. IV intact, patent, and infusing IV fluids. Bed in lowest position with call light in reach. Sitter at bedside. Will continue with plan of care.
[2019-01-14 20:00] VITALS: BP 111/72
--- NOTE | 2019-01-14 20:04 | NUR ---
CASE MANAGEMENT: REVIEW SI: DRUG OVERDOSE . RESP FAILURE . ACUTE ENCEPHALOPATHY T 97.0 HR 104 RR 18 BP 143/93 SAT 99% ROOM AIR H/H 11.7/35.4 K 2.7 AMYLASE 379 LIPASE >2000 IS: BANANA BAG IV Q24 THIAMINE IV Q24HR LIBRIUM PO Q8HR VENOFER IV QHS ZOSYN IV Q8HR NS IVF @ 100ML/HR ATIVAN IV Q4HR PRN FULL LIQUID PO DIET PATIENT ADMITTED TO STEP DOWN UNIT 01/11/2019 DCP: PATIENT IS FROM HOME
[2019-01-14] MEDS ORDERED: Miralax 17gm pkt ORAL SCH (21:00)
[2019-01-14] MEDS ORDERED: Iron Sucrose 100 MG in NS 55 ML IV SCH (21:00)
[2019-01-15] VITALS: BP 120/77
[2019-01-15 04:05] VITALS: BP 118/77
--- NOTE | 2019-01-15 05:38 | NUR ---
NURSE NOTES:Ana care kept clean and dry at all times A&D ointment applied on sacral arera turned and repositioned for comfort and overlay mattress in place.
[2019-01-15 06:17] LABS: BASOPHILS % (AUTO) 0.7 % (0.0-2.0); EOSINOPHILS % (AUTO) 2.4 % (0.0-3.0); HEMATOCRIT 39.2 % (37.0-47.0); HEMOGLOBIN 13.1 G/DL (12.0-16.0); LYMPHOCYTES % (AUTO) 19.4 % (20.0-45.0); MEAN CORPUSCULAR VOLUME 91 FL (80-99); MONOCYTES % (AUTO) 7.7 % (1.0-10.0); NEUTROPHILS % (AUTO) 69.7 % (45.0-75.0); PLATELET COUNT 333 K/UL (150-450); RED BLOOD COUNT 4.31 M/UL (4.20-5.40); RED CELL DISTRIBUTION WIDTH 13.5 % (11.6-14.8); WHITE BLOOD COUNT 7.7 K/UL (4.8-10.8)
[2019-01-15] MEDS: Piperacillin/Tazobactam 3.375 GM in NS 110 ML IVPB SCH ×2 (06:35→13:25)
[2019-01-15] MEDS: chlordiazePOXIDE 25mg Cap ORAL SCH ×2 (06:35→13:25)
[2019-01-15 06:37] LABS: AMYLASE 187 U/L (25-115); ANION GAP 11 mmol/L (5-15); BLOOD UREA NITROGEN 2 mg/dL (7-18); CALCIUM 8.8 MG/DL (8.5-10.1); CARBON DIOXIDE 20 MMOL/L (21-32); CHLORIDE 108 MMOL/L (98-107); CREATININE 0.5 MG/DL (0.55-1.30); POTASSIUM 3.1 MMOL/L (3.5-5.1); SODIUM 139 MMOL/L (136-145)
--- NOTE | 2019-01-15 07:12 | NUR ---
NURSE NOTES: Received report from TONY Antony. Pt in bed, awake, talkative, no complaints of pain, no apparent distress noted, pt is calm, normal tone of voice, no suicidal thoughts at this time, Kristine farley CNA at bedside, bed in lowest position, call light within reach, side rails padded.
--- NOTE | 2019-01-15 07:34 | NUR ---
HAND-OFF: Report given to TONY Sandy.
[2019-01-15 08:00] VITALS: BP 122/65
--- NOTE | 2019-01-15 08:20 | NUR ---
NURSE NOTES: Notified Dr. Larsen, K 3.1, Dr. Soni ordered 40 mEq KCL PO x1
[2019-01-15] MEDS: Bactrim-DS 1 tab ORAL SCH (08:47)
[2019-01-15] MEDS: Docusate 100mg cap ORAL SCH ×2 (08:48→17:13)
[2019-01-15] MEDS: Pantoprazole Inj IVP SCH (08:48)
--- NOTE | 2019-01-15 08:49 | Critical Care Progress Note ---
Assessment/Plan Assessment/Plan drug overdose respiratory failure acute leukocytosis anemia metabolic acidosis severe protein calorie malnutrition pancreatitis pneumonia low K PLAN support as able IV hydration DVT prophylaxis ID eval; antibiotics; await clearance dc planning CT reviewed psych clearance impression, plan, and exam edited and reviewed in detail care discussed with supervisor general - Subjective Condition: stable EKG Rhythm: Sinus Rhythm I&O: Intake and Output 01/14/19 01/15/19 19:00 07:00 Intake Total 350 ml 3051.0 ml Output Total 1700 ml Balance 350 ml 1351.0 ml Intake Oral 350 ml 1300 ml IV Total 1751.0 ml Output Urine Total 1700 ml # Voids 5 4 # Bowel Movements 1 Critical Care - Objective ET-Tube: 7.5 ET Position: 22 Last 24 Hour Vital Signs Date Time Temp Pulse Resp B/P (MAP) Pulse Ox O2 Delivery O2 Flow Rate FiO2 01/15/19 08:00 99.3 109 19 122/65 (84) 95 01/15/19 04:05 97.0 78 18 118/77 (91) 98 01/15/19 00:00 98.2 88 18 120/77 (91) 98 01/14/19 21:00 Room Air 01/14/19 20:00 97.7 74 18 111/72 (85) 99 01/14/19 16:00 97.9 104 18 112/74 (87) 97 01/14/19 12:00 97.0 76 18 140/90 (107) 100 01/14/19 09:00 Room Air Labs: Labs Test 01/13/19 06:27 01/14/19 03:20 01/15/19 05:32 White Blood Count 8.8 K/UL (4.8-10.8) 8.6 K/UL (4.8-10.8) 7.7 K/UL (4.8-10.8) Red Blood Count 3.82 M/UL (4.20-5.40) 3.83 M/UL (4.20-5.40) 4.31 M/UL (4.20-5.40) Hemoglobin 11.6 G/DL (12.0-16.0) 11.7 G/DL (12.0-16.0) 13.1 G/DL (12.0-16.0) Hematocrit 35.9 % (37.0-47.0) 35.4 % (37.0-47.0) 39.2 % (37.0-47.0) Mean Corpuscular Volume 94 FL (80-99) 92 FL (80-99) 91 FL (80-99) Mean Corpuscular Hemoglobin 30.5 PG (27.0-31.0) 30.4 PG (27.0-31.0) 30.4 PG (27.0-31.0) Mean Corpuscular Hemoglobin Concent 32.5 G/DL (32.0-36.0) 32.9 G/DL (32.0-36.0) 33.4 G/DL (32.0-36.0) Red Cell Distribution Width 12.9 % (11.6-14.8) 12.5 % (11.6-14.8) 13.5 % (11.6-14.8) Platelet Count 294 K/UL (150-450) 326 K/UL (150-450) 333 K/UL (150-450) Mean Platelet Volume 5.4 FL (6.5-10.1) 5.5 FL (6.5-10.1) 5.1 FL (6.5-10.1) Neutrophils (%) (Auto) 75.4 % (45.0-75.0) 64.4 % (45.0-75.0) 69.7 % (45.0-75.0) Lymphocytes (%) (Auto) 12.0 % (20.0-45.0) 21.3 % (20.0-45.0) 19.4 % (20.0-45.0) Monocytes (%) (Auto) 12.0 % (1.0-10.0) 12.5 % (1.0-10.0) 7.7 % (1.0-10.0) Eosinophils (%) (Auto) 0.1 % (0.0-3.0) 1.4 % (0.0-3.0) 2.4 % (0.0-3.0) Basophils (%) (Auto) 0.6 % (0.0-2.0) 0.5 % (0.0-2.0) 0.7 % (0.0-2.0) Sodium Level 143 MMOL/L (136-145) 140 MMOL/L (136-145) 139 MMOL/L (136-145) Potassium Level 2.9 MMOL/L (3.5-5.1) 2.7 MMOL/L (3.5-5.1) 3.1 MMOL/L (3.5-5.1) Chloride Level 112 MMOL/L (98-107) 108 MMOL/L (98-107) 108 MMOL/L (98-107) Carbon Dioxide Level 20 MMOL/L (21-32) 22 MMOL/L (21-32) 20 MMOL/L (21-32) Anion Gap 11 mmol/L (5-15) 10 mmol/L (5-15) 11 mmol/L (5-15) Blood Urea Nitrogen 4 mg/dL (7-18) 1 mg/dL (7-18) 2 mg/dL (7-18) Creatinine 0.6 MG/DL (0.55-1.30) 0.5 MG/DL (0.55-1.30) 0.5 MG/DL (0.55-1.30) Estimat Glomerular Filtration Rate > 60 mL/min (>60) > 60 mL/min (>60) > 60 mL/min (>60) Glucose Level 76 MG/DL (74-106) 67 MG/DL (74-106) 75 MG/DL (74-106) Calcium Level 8.4 MG/DL (8.5-10.1) 8.5 MG/DL (8.5-10.1) 8.8 MG/DL (8.5-10.1) Magnesium Level 2.0 MG/DL (1.8-2.4) Total Bilirubin 0.2 MG/DL (0.2-1.0) 0.4 MG/DL (0.2-1.0) Aspartate Amino Transf (AST/SGOT) 21 U/L (15-37) 24 U/L (15-37) Alanine Aminotransferase (ALT/SGPT) 23 U/L (12-78) 19 U/L (12-78) Alkaline Phosphatase 56 U/L (46-116) 60 U/L (46-116) Total Protein 6.9 G/DL (6.4-8.2) 6.0 G/DL (6.4-8.2) Albumin 2.7 G/DL (3.4-5.0) 2.7 G/DL (3.4-5.0) Globulin 4.2 g/dL 3.3 g/dL Albumin/Globulin Ratio 0.6 (1.0-2.7) 0.8 (1.0-2.7) Amylase Level 427 U/L (25-115) 379 U/L (25-115) 187 U/L (25-115) Lipase > 2000 U/L (73-393) > 2000 U/L (73-393) 1423 U/L (73-393) Erythrocyte Sedimentation Rate 44 MM/HR (0-20) C-Reactive Protein, Quantitative 4.9 mg/dL (0.00-0.90) Objective: WDWN awake clear breath sounds bilaterally without rhonchi or wheeze [id number] without MRG NABS nontender no HSM no CCE Justus Larsen MD Jan 15, 2019 08:49
[2019-01-15] MEDS: Heparin 5000 units/ml inj SUBQ SCH (08:52)
--- NOTE | 2019-01-15 10:24 | Surgery Progress Note ---
Surgery Progress Note Subjective Additional Comments no acute events labs improved lip/asmita trending down right hand edema and pain still but better range of motion Objective Last 24 Hour Vital Signs Date Time Temp Pulse Resp B/P (MAP) Pulse Ox O2 Delivery O2 Flow Rate FiO2 01/15/19 08:00 99.3 109 19 122/65 (84) 95 01/15/19 04:05 97.0 78 18 118/77 (91) 98 01/15/19 00:00 98.2 88 18 120/77 (91) 98 01/14/19 21:00 Room Air 01/14/19 20:00 97.7 74 18 111/72 (85) 99 01/14/19 16:00 97.9 104 18 112/74 (87) 97 01/14/19 12:00 97.0 76 18 140/90 (107) 100 I&O Intake and Output 01/14/19 01/15/19 19:00 07:00 Intake Total 350 ml 3051.0 ml Output Total 1700 ml Balance 350 ml 1351.0 ml Intake Oral 350 ml 1300 ml IV Total 1751.0 ml Output Urine Total 1700 ml # Voids 5 4 # Bowel Movements 1 Dressing: dry Wound: clean Cardiovascular: RSR Respiratory: clear Abdomen: soft, flat, non-tender, present bowel sounds Extremities: edema, no tenderness, no cyanosis Laboratory Tests Test 01/15/19 05:32 White Blood Count 7.7 K/UL (4.8-10.8) Red Blood Count 4.31 M/UL (4.20-5.40) Hemoglobin 13.1 G/DL (12.0-16.0) Hematocrit 39.2 % (37.0-47.0) Mean Corpuscular Volume 91 FL (80-99) Mean Corpuscular Hemoglobin 30.4 PG (27.0-31.0) Mean Corpuscular Hemoglobin Concent 33.4 G/DL (32.0-36.0) Red Cell Distribution Width 13.5 % (11.6-14.8) Platelet Count 333 K/UL (150-450) Mean Platelet Volume 5.1 FL (6.5-10.1) L Neutrophils (%) (Auto) 69.7 % (45.0-75.0) Lymphocytes (%) (Auto) 19.4 % (20.0-45.0) L Monocytes (%) (Auto) 7.7 % (1.0-10.0) Eosinophils (%) (Auto) 2.4 % (0.0-3.0) Basophils (%) (Auto) 0.7 % (0.0-2.0) Sodium Level 139 MMOL/L (136-145) Potassium Level 3.1 MMOL/L (3.5-5.1) L Chloride Level 108 MMOL/L (98-107) H Carbon Dioxide Level 20 MMOL/L (21-32) L Anion Gap 11 mmol/L (5-15) Blood Urea Nitrogen 2 mg/dL (7-18) L Creatinine 0.5 MG/DL (0.55-1.30) L Estimat Glomerular Filtration Rate > 60 mL/min (>60) Glucose Level 75 MG/DL (74-106) Calcium Level 8.8 MG/DL (8.5-10.1) Amylase Level 187 U/L (25-115) H Lipase 1423 U/L (73-393) H Plan Problems: (1) Leukocytosis Assessment & Plan: Leukocytosis likely due to stress reaction. - resolved Lactic acidosis resolved Labs noted Continue trend labs (2) Drug overdose (3) Respiratory failure (4) Lactic acid acidosis (5) Altered mental status, unspecified (6) Deep tissue injury Assessment & Plan: Pt presented on admission with multiple pressure injuries.Non-blanching erythema without induration/fluctuance medial R elbow. DTPI L elbow.Base of wound maroon and indurated.(L)0.9cm x (W)0.8cm. An area of non-blanchable erythema without induration/fluctuance medial L elbow. DTPI sacrococcygeal area. base of wound indurated -purple with surrounding red tinged borders. (L)1cm x (W)1cm. DTPI L buttocks. base of wound maroon,indurated with irregular shaped borders that are red . Periwound is pink and blanchable. (L)4.2cm x (W)3.5cm. Non-blanchable erythema that is indurated at base of wound L buttocks (L)4.5cm x (W)5cm.Periwound pink and blanchable. Non-blanchable erythema without induration or fluctuance L heel. Non-blanchable erythema without induration or fluctuance L lateral Malleolus. Non-blanchable erythema without induration /fluctuance R heel. Tx.Plan: Apply Moisture Barrier paste to sacrococcygeal area, R and L buttocks. Apply Cavilon periwound. Cover with Optifoam drsgs. Change every 3 days and prn. Apply Cavilon Skin Barrier to R and L elbows. Cover each site with Optifoam drsg. Change every 7 days and prn. Apply Cavilon Skin Barrier to R and L heels. Cover each heel with Optifoam drsg. Change every 7 days and prn. APM/MEL Mattress overlay. Reposition at lease every 2 hours or as tolerated. Off-load heels with pillow. (7) Pancreatitis Assessment & Plan: Impression: No gallstones demonstrated. However, there is gallbladder wall thickening. Possible etiologies are reactive thickening from adjacent hepatic inflammation, edema from systemic causes. Acalculus acute cholecystitis or acute cholecystitis from a sonographically occult stone also possibilities, and hepatobiliary nuclear scan could be considered if there is high clinical suspicion for such likely medication related IV hydration I&O labs improved no pain trend labs Romero Sotomayor Jan 15, 2019 10:24
--- NOTE | 2019-01-15 11:11 | GI Progress Note ---
Assessment/Plan Problems: (1) Anemia ICD Codes: D64.9 - Anemia, unspecified SNOMED: 192984282 (2) Pancreatitis ICD Codes: K85.90 - Acute pancreatitis without necrosis or infection, unspecified SNOMED: 69880175 (3) Drug overdose ICD Codes: T50.901A - Poisoning by unspecified drugs, medicaments and biological substances, accidental (unintentional), initial encounter SNOMED: 55453134 (4) Altered mental status, unspecified ICD Codes: R41.82 - Altered mental status, unspecified SNOMED: 701891875 Status: stable Status Narrative Discussed with Dr. Tristan Assessment/Plan Abdominal pelvis CT reviewed Plan for full liquid today, advance to regular diet tomorrow iv iron fu labs respiratory care fu psych on colace and miralax, had BM pain control trend lipase The patient was seen and examined at bedside and all new and available data was reviewed in the patients chart. I agree with the above findings, impression and plan. (Patient seen earlier today. Signature stamp does not reflect patient encounter time.). - Eleazar Tristan MD Subjective Subjective Tolerated full liquid diet Complaint of increased frequency of urination Objective Last 24 Hour Vital Signs Date Time Temp Pulse Resp B/P (MAP) Pulse Ox O2 Delivery O2 Flow Rate FiO2 01/15/19 09:19 99.3 01/15/19 09:00 Room Air 01/15/19 08:00 99.3 109 19 122/65 (84) 95 01/15/19 04:05 97.0 78 18 118/77 (91) 98 01/15/19 00:00 98.2 88 18 120/77 (91) 98 01/14/19 21:00 Room Air 01/14/19 20:00 97.7 74 18 111/72 (85) 99 01/14/19 16:00 97.9 104 18 112/74 (87) 97 01/14/19 12:00 97.0 76 18 140/90 (107) 100 Intake and Output 01/14/19 01/15/19 19:00 07:00 Intake Total 350 ml 3051.0 ml Output Total 1700 ml Balance 350 ml 1351.0 ml Intake Oral 350 ml 1300 ml IV Total 1751.0 ml Output Urine Total 1700 ml # Voids 5 4 # Bowel Movements 1 Laboratory Tests Test 01/15/19 05:32 White Blood Count 7.7 K/UL (4.8-10.8) Red Blood Count 4.31 M/UL (4.20-5.40) Hemoglobin 13.1 G/DL (12.0-16.0) Hematocrit 39.2 % (37.0-47.0) Mean Corpuscular Volume 91 FL (80-99) Mean Corpuscular Hemoglobin 30.4 PG (27.0-31.0) Mean Corpuscular Hemoglobin Concent 33.4 G/DL (32.0-36.0) Red Cell Distribution Width 13.5 % (11.6-14.8) Platelet Count 333 K/UL (150-450) Mean Platelet Volume 5.1 FL (6.5-10.1) L Neutrophils (%) (Auto) 69.7 % (45.0-75.0) Lymphocytes (%) (Auto) 19.4 % (20.0-45.0) L Monocytes (%) (Auto) 7.7 % (1.0-10.0) Eosinophils (%) (Auto) 2.4 % (0.0-3.0) Basophils (%) (Auto) 0.7 % (0.0-2.0) Sodium Level 139 MMOL/L (136-145) Potassium Level 3.1 MMOL/L (3.5-5.1) L Chloride Level 108 MMOL/L (98-107) H Carbon Dioxide Level 20 MMOL/L (21-32) L Anion Gap 11 mmol/L (5-15) Blood Urea Nitrogen 2 mg/dL (7-18) L Creatinine 0.5 MG/DL (0.55-1.30) L Estimat Glomerular Filtration Rate > 60 mL/min (>60) Glucose Level 75 MG/DL (74-106) Calcium Level 8.8 MG/DL (8.5-10.1) Amylase Level 187 U/L (25-115) H Lipase 1423 U/L (73-393) H Height (Feet): 5 Height (Inches): 4.00 Weight (Pounds): 111 General Appearance: WD/WN, no apparent distress, alert Cardiovascular: normal rate Respiratory/Chest: normal breath sounds, no respiratory distress Abdominal Exam: normal bowel sounds, non tender, soft Extremities: normal range of motion, non-tender Karen Sal NP Jan 15, 2019 11:11
[2019-01-15 12:01] VITALS: BP 115/70
--- NOTE | 2019-01-15 12:03 | NUR ---
RD ASSESSMENT & RECOMMENDATIONS SEE CARE ACTIVITY FOR COMPLETE ASSESSMENT DAILY ESTIMATED NEEDS: Needs based on Pancreatitis, wounds/ 50kg 25-35 kcals/kg 4970-3169 total kcals 1.25-2 g protein/kg 62-100 g total protein 25-30 mL/kg 1778-1562 total fluid mLs NUTRITION DIAGNOSIS: * Increased kcal/prot needs R/T wound healing as evidenced by pt admitted with multiple non-blanchable redness and DTPI wounds, refer to WC eval. * Swallowing difficulty R/T respiratory status as evidenced by s/p OD, orally intubated in ICU, w/ OGT in place, NPO. (INACTIVE) * Decreased fat needs r/t pancreatitis as evidenced by elev amylase (now trending down 187), elev lipase (>2000->1423 trend down). CURRENT DIET:FULL LIQUID PO DIET RECOMMENDATIONS: Advance as able to LOW FAT diet ADDITIONAL RECOMMENDATIONS: * Monitor lytes, replete as needed (K) * Standing wt for accurate CBW * Wound healing: add MVI 1 tab QD, Vit C 500mg QD add Jose 1pkt BID * Monitor PO intake and tolerance (pancreatitis dx, lipase trending down)
--- NOTE | 2019-01-15 13:30 | NUR ---
NURSE NOTES: Post-void bladder scan done, 114ml residual 5 minutes post void. Notified TRISTIAN Shelton
--- NOTE | 2019-01-15 15:17 | NUR ---
NURSE NOTES: Pt stated she is having a sore throat, notified Dr. Larsen. Dr. Larsen ordered Cepacol Q4 PRN
--- NOTE | 2019-01-15 15:39 | NUR ---
*-* INSURANCE *-* UPDATED CLINICALS AND REVIEWS HAVE BEEN FAXED TO: [facility] AUTH#[id number] FAX ALL CLINICALS TO: [phone]
[2019-01-15 16:49] VITALS: BP 124/83
--- NOTE | 2019-01-15 17:09 | NUR ---
NURSE NOTES: Dr. Perdomo cleared pt. Notified Dr. Larsen of clearance and asked about DC pt as family is requesting to take her home. Addendum: 01/15/19 at 1824 by KRISTEN HERNANDEZ RN NURSE NOTES: Dr. Larsen stated to contact Sj for clearance. RN Left message for Dr. Gustafson to see if pt is cleared for DC and if pt need abx at home
[2019-01-15] MEDS: Thiamine HCl 100 MG in D5W 55 ML IVPB SCH (17:13)
[2019-01-15] MEDS: Folic Acid 1 MG, Magnesium Sulfate 2,000 MG, Multivitamin - 12 Injection 10 ML in Sodiu... IV SCH (17:13)
[2019-01-15] MEDS ORDERED: Tubing IV Secondary IV ONE (19:04)
--- NOTE | 2019-01-15 19:05 | NUR ---
NURSE NOTES: Pt discharged home with all belongings. Accompanied by mother, Mirian, pt is ambulatory, signed all discharge paperwork. Home medication receipt in chart with note hand written "all meds given to brother." RN went to pharmacy, confirmed no home medications stored in pharmacy. Pt stable for discharge. IV removed, ID band removed.
--- NOTE | 2019-01-15 20:28 | NUR ---
CASE MANAGEMENT: REVIEW SI: DRUG OVERDOSE . RESP FAILURE . ACUTE ENCEPHALOPATHY T 99.3 HR 109 RR 19 BP 122/65 SAT 95% ROOM AIR K 3.1 AMYLASE 187 LIPASE 1423 IS: BANANA BAG IV Q24 THIAMINE IV Q24HR LIBRIUM PO Q8HR VENOFER IV QHS ZOSYN IV Q8HR NS IVF @ 100ML/HR ATIVAN IV Q4HR PRN MED/SURG STATUS DCP: PATIENT IS FROM HOME
--- NOTE | 2019-01-15 21:15 | Progress Note ---
DATE: 01/15/2019 SUBJECTIVE: The patient was seen for 45 minutes. The mother was in the room. The patient is feeling better, more alert, not confused, engaged during the evaluation. The patient wants to go to drug rehabilitation. Mother discussed the in the past. MENTAL STATUS EXAMINATION: The patient is alert, oriented times self, place, and situation. Mood is anxious. Affect is full range. Congruent with mood. Thought process, linear and goal oriented. Thought content, no suicidal or homicidal ideation. Memory, concentration, and attention is slightly impaired. Insight and judgment is poor. ASSESSMENT: 1. Status post OD. 2. Alcohol withdrawal, improved. PLAN: 1. Decrease Librium, discontinue Ativan. 2. Start the patient on Remeron 7.5 at bedtime. 3. Discontinue risperidone. 4. We will continue to follow and readjust the medication. Chris Perdomo M.D. DR: Trini JOB#: [id number] CC: UBALDO
--- NOTE | 2019-01-15 21:30 | Progress Note ---
DATE: 01/14/2019 SUBJECTIVE: I spent time discussing the case with family including the mother and father. The patient is presenting with anxiety, depressed mood, does endorse not any suicidal or homicidal ideations, calmer, more engaged now, still has episodes of forgetfulness. MENTAL STATUS EVALUATION: The patient is alert and oriented times self, place, and situation. Mood is anxious. Affect is constricted. Congruent with mood. Thought process is linear. Thought content, no suicidal or homicidal ideation. ASSESSMENT: 1. Alcohol dependence. 2. Alcohol withdrawal. PLAN: 1. We will continue current medications. 2. Provide the patient with reality orientation and supportive therapy. Chris Perdomo M.D. DR: Trini JOB#: [id number] CC:
[2019-01-15] MEDS ORDERED: chlordiazePOXIDE 25mg Cap ORAL SCH (22:00)
--- NOTE | 2019-01-16 10:17 | Discharge Summary ---
Discharge Summary Discharge Summary _ DATE OF ADMISSION: 01/08/2019 DATE OF DISCHARGE: 01/15/2019 DISCHARGED BY: Dr. Larsen REASON FOR ADMISSION: 33 years old female with history of depression, alcohol and benzodiazepine abuse, presented after taking overdose of Flexeril 10 mg of unknown amount and Seroquel 100 mg with an entire bottle found empty. Patient texted her friend, saying that she wanted to kill herself. Patient was unresponsive on arrival to ED. Laboratory work-up revealed leukocytosis WBC 26.1, stable hemoglobin and hematocrit. Potassium 3.3. BUN 19, creatinine 1.5. Lactic acid 5.5. Repeated lactic acid 3.6. Magnesium 1.2. Troponin negative. Amylase 1149. Lipase initially stable. Albumin 2.9. Stable LFT. Urine toxicology screen was positive for benzodiazepine. Serum salicylates , Tylenol and alcohol levels were all negative. Urinalysis revealed +2 protein, +1 blood, +3 leukocyte esterase, pyuria, and many bacteria. Urine test was negative CT of the head revealed no mass effect, edema or acute bleeding. Patient subsequently was intubated in ED for airway protection. Chest x-ray confirmed endotracheal tube in good position. Generalized increased opacification of the right hemithorax noted , possibly positional in nature. In ED patient started on fluid resuscitation and empiric antibiotics. Per conversation with the poison control recommended clsoe monitoring and ICU admission. CONSULTANTS: ID specialist Dr. Gustafson GI specialist Dr. Tristan surgery Dr. Sotomayor psychiatrist [facility] COURSE: Patient admitted to ICU. Ventilator support provided. Pulmonary toilet provided. Patient started on empiric antibiotics and IV fluids. Mental status was closely monitored. Renal parameters and electrolytes were closely monitored. Electrolytes / potassium and magnesium -corrected. Nephrotoxins were avoided. NG tube was inserted for medication and feeding. GI prophylaxis provided. ID specialist followed. Urine culture revealed Klebsiella. Blood cultures were negative. Follow-up chest x-ray revealed interval development of right mid and lower lung infiltrates likely pneumonia. Antibiotic provided as per ID specialist recommendation. Leukocytosis resolved, patient remained afebrile. Abdominal ultrasound revealed no gallstones, but showed gallbladder wall thickening. Both kidneys demonstrated normal echogenicity , no hydronephrosis. Sonographic Barrow sign was negative. Liver demonstrated normal echogenicity. CT of the abdomen and pelvis revealed nonobstructive stones within both kidneys. Hiatal hernia. Contracted gallbladder. No obvious gallstones. Amylase trended down from initial 1149 down to 187. Lipase started to trend up after initial being negative and prior to discharge 1423. Surgeon followed. Per surgeon , pancreatitis was likely medication related.. No abdominal pain reported. LFT remained stable . Amylase and lipase trending down. Patient started on liquid diet and was advanced as tolerated. Bowel regimen instituted. Pain management was addressed as needed. Hemoglobin and hematocrit were closely monitored with goal to keep hemoglobin above 7. ' astronomy teacher recommendation regarding nutritional supplements implemented in plan of care. Wound care for deep tissue injury, present on admission, provided as per surgeon recommendation. Psychiatrist followed. Per psychiatrist , patient had history of alcohol or benzodiazepine abuse. Patient initially presented with acute encephalopathy . Patient started on folate and thiamine. Librium initiated. Patient also started on Ativan as needed . CIWA protocol implemented. When patient became more awake , reality orientation and supportive therapy provided. Psychiatric medication regimen was optimized. Supportive care provided. DVT prophylaxis provided. Patient was counseled on abstinence from alcohol and benzodiazepines. Psychiatrist cleared patient for discharge. Patient was stable for discharge home accompanied by her mother. Outpatient follow-up with primary care provider in one wek. FINAL DIAGNOSES: Drug overdose Acute respiratory failure , requiring intubation-extubated Acute encephalopathy Pancreatitis Pneumonia Klebsiella UTI Lactic acidosis Leukocytosis Alcohol dependency Alcohol withdrawal Anemia Electrolyte imbalance Deep tissue injury, present on admission DISCHARGE MEDICATIONS: See Medication Reconciliation list. DISCHARGE INSTRUCTIONS: Patient was discharged home. Follow up with primary care provider in one week. I have been assigned to dictate discharge summary for this account. I was not involved in the patient's management. Zoey Martinez NP Jan 16, 2019 10:17
--- NOTE | 2019-01-16 15:47 | NUR ---
Social Work Patient was discharged yesterday prior to SW seeing the patient for substance abuse programs/resources; This Sw left a message with mother, Mirian @ [phone] (awaiting call back at this time).
--- NOTE | 2019-01-16 16:14 | NUR ---
SS note Patient's mother returned this SW call and expressed concerns regarding patients level of treatment needed. Mother explains patient plans to move in with parents in [place] and wanted patient to follow up with AA meetings there, but has decided they will seek a 30-day substance abuse program in the area, along with outpatient Psychiatry, and Psychotherapy. This SW provided emotional support and education to mother, while recommended to contact patient's insurance to verify which programs will be covered in [place]. This SW also recommended [facility] for parents.
--- NOTE | 2019-01-17 14:41 | NUR ---
*-* INSURANCE *-* UPDATED CLINICALS AND REVIEWS HAVE BEEN FAXED TO: [facility] AUTH#[id number] FAX ALL CLINICALS TO: [phone]
== END 2019-01-15 19:05 | disposition home or self-care (01) | DRG 917 ==
LOC: EDBD 21:37 → EMR 21:46 → ICU 22:28 → EDBEDREQ 23:47 → 2W 01-11 12:46 → 4E 01-14 04:05
PROC: 5A1945Z Respiratory Ventilation, 24-96 Consecutive Hours (ICD-10-PCS; principal; 2019-01-08)
PROC: 0BH17EZ Insertion of Endotracheal Airway into Trachea, Via Natural or Artificial Opening (ICD-10-PCS; principal; 2019-01-08)
DX: T48.1X2A Poisoning by skeletal muscle relaxants [neuromuscular blocking agents], intentional self-harm, initial encounter (principal); J96.00 Acute respiratory failure, unspecified whether with hypoxia or hypercapnia; E43 Unspecified severe protein-calorie malnutrition; K85.90 Acute pancreatitis without necrosis or infection, unspecified; J18.9 Pneumonia, unspecified organism; E87.2 Acidosis; Z68.1 Body mass index [BMI] 19.9 or less, adult; F10.239 Alcohol dependence with withdrawal, unspecified; N39.0 Urinary tract infection, site not specified; G93.40 Encephalopathy, unspecified; T43.592A Poisoning by other antipsychotics and neuroleptics, intentional self-harm, initial encounter; Y92.9 Unspecified place or not applicable; D72.829 Elevated white blood cell count, unspecified; F32.9 Major depressive disorder, single episode, unspecified; F41.9 Anxiety disorder, unspecified; D64.9 Anemia, unspecified; L89.890 Pressure ulcer of other site, unstageable; B96.1 Klebsiella pneumoniae [K. pneumoniae] as the cause of diseases classified elsewhere
CPT/HCPCS: 31500; 36415; 36600; 70450; 71045; 74018; 74177; 76700; 80048; 80053; 80061; 80307; 80329; 81003; 81025; 82150; 82550; 82553; 82803; 83540; 83550; 83605; 83690; 83735; 83880; 84100; 84478; 84484; 84702; 85007; 85025; 85610; 85651; 85730; 86140; 86850; 86900; 86901; 87040; 87081; 87086; 87181; 93005; 94002; 94003; 94640; 94664; 96361; 96365; 96367; 96375; 99291; J8499; S0077